=== PATIENT | male | born 1945 | race Caucasian/White ===

== ENCOUNTER 2016-08-07 14:01 | Inpatient (IN) | payer MEDICARE, OTHER ==
[~2016-08-07] VITALS: Ht 177.8 cm; Wt 65.8 kg
[~2016-08-07 14:01] MED LIST: AMLODIPINE BESY10 MG ORAL; ATORVASTATIN CA20 MG ORAL; CARVEDILOL25 MG ORAL; CATAPRES0.3 MG ORAL; FLOMAX0.4 MG ORAL; GLIMEPIRIDE4 MG ORAL; ISOSORBIDE MONO60 M1 PO; MIRTAZAPINE15 M3 ORAL; NAMENDA10 MG ORAL; PANTOPRAZOLE SO40 MG ORAL; PROSCAR5 MG ORAL
[2016-08-07] MEDS ORDERED: LANSOPRAZOLE30 MG ORAL (14:38)
[2016-08-07] MEDS ORDERED: TAMSULOSIN HCL0.4 MG ORAL (14:38)
[2016-08-07] MEDS ORDERED: NORVASC10 MG ORAL (14:38)
[2016-08-07] MEDS ORDERED: NAMENDA5 MG ORAL (14:38)
[2016-08-07] MEDS ORDERED: ATORVASTATIN CA40 MG ORAL (14:38)
--- NOTE | 2016-08-07 14:38 | Emergency Room Report ---
History of Present Illness General Chief Complaint: Upper Respiratory Illness Source: Patient, Medical Record, EMS Present Illness HPI Patient is a 70-year-old male who presented after increased congestion and difficulty breathing. Patient prior history of CVA as well as increased coughing congestion. He had gradual onset of symptoms. Patient was sent from group home. The patient's primary care physician is Dr. Davis. Allergies: Coded Allergies: No Known Allergies (Verified , 06/04/07) Patient History Past Medical History: see triage record Reviewed Nursing Documentation: PMH: Agreed, PSxH: Agreed Nursing Documentation-PMH Past Medical History: No History, Except For Hx Hypertension: Yes Hx COPD: Yes Hx Diabetes: Yes - CKD stage 3 Hx Cancer: No Hx Gastrointestinal Problems: No Hx Neurological Problems: Yes - SCHIZOPHRENIA Hx Cerebrovascular Accident: Yes Review of Systems All Other Systems: negative except mentioned in HPI Physical Exam Vital Signs Date Time Temp Pulse Resp B/P Pulse Ox O2 Delivery O2 Flow Rate FiO2 08/07/16 14:02 98.4 72 18 117/75 100 Room Air Sp02 EP Interpretation: reviewed, normal General Appearance: normal inspection, well appearing, no apparent distress, alert Head: atraumatic ENT: normal ENT inspection, hearing grossly normal, normal voice Neck: normal inspection, full range of motion, supple, no bony tend Respiratory: normal inspection, no respiratory distress, no retraction, no wheezing, decreased breath sounds Cardiovascular #1: regular rate, rhythm, no edema Gastrointestinal: normal inspection, normal bowel sounds, non tender, soft, no guarding, no hernia Genitourinary: no CVA tenderness Musculoskeletal: normal inspection, back normal, normal range of motion Neurologic: normal inspection, alert, oriented x3, responsive, orthopedic assistant III-XII nml as tested, motor weakness, other - tremor, bilateral upper extremity body fitter equal Psychiatric: normal inspection, mood/affect normal Skin: normal inspection, normal color, no rash Medical Decision Making Diagnostic Impression: Primary Impression: Pneumonia Additional Impressions: Pleural effusion, left UTI (urinary tract infection) ER Course Patient presented for shortness of breath. Differential included but was not limited to anemia, pneumonia, pneumothorax, myocardial infarction, pericardial effusion, congestive heart failure, acidosis. EKG interpreted by me showed normal sinus rhythm with a rate of [address] or T wave changes. The inferior T wave flattening was noted. Patient was given IV antibiotics for presumed was urinary infection. patient also was noted to have some evidence of pneumonia. Because of patient's abnormal chest x-ray as well as comorbidities Dr. Davis was contacted for inpatient management. Labs Test 08/07/16 14:35 08/07/16 15:00 08/07/16 15:50 White Blood Count 5.5 K/UL (4.8-10.8) Red Blood Count 4.44 M/UL (4.70-6.10) Hemoglobin 13.8 G/DL (14.2-18.0) Hematocrit 40.3 % (42.0-52.0) Mean Corpuscular Volume 91 FL (80-99) Mean Corpuscular Hemoglobin 31.0 PG (27.0-31.0) Mean Corpuscular Hemoglobin Concent 34.2 G/DL (32.0-36.0) Red Cell Distribution Width 11.4 % (11.6-14.8) Platelet Count 140 K/UL (150-450) Mean Platelet Volume 6.5 FL (6.5-10.1) Neutrophils (%) (Auto) 47.1 % (45.0-75.0) Lymphocytes (%) (Auto) 39.6 % (20.0-45.0) Monocytes (%) (Auto) 9.0 % (1.0-10.0) Eosinophils (%) (Auto) 3.8 % (0.0-3.0) Basophils (%) (Auto) 0.5 % (0.0-2.0) Sodium Level 146 mEQ/L (135-145) Potassium Level 4.6 mEQ/L (3.4-4.9) Chloride Level 106 mEQ/L (98-107) Carbon Dioxide Level 21 mEQ/L (20-30) Anion Gap 19 (5-15) Blood Urea Nitrogen 38 mg/dL (7-23) Creatinine 1.6 mg/dL (0.7-1.2) Estimat Glomerular Filtration Rate mL/min (>60) Glucose Level 149 mg/dL (74-106) Calcium Level 9.3 mg/dL (8.6-10.2) Total Bilirubin 0.3 mg/dL (0.0-1.2) Aspartate Amino Transf (AST/SGOT) 18 U/L (5-40) Alanine Aminotransferase (ALT/SGPT) 17 U/L (3-41) Alkaline Phosphatase 74 U/L (40-129) Total Creatine Kinase 132 U/L (38-174) Creatine Kinase MB 2.9 ng/mL (< 6.7) Creatine Kinase MB Relative Index 2.1 Troponin I < 0.30 ng/mL (<=0.30) Pro-B-Type Natriuretic Peptide 195 pg/mL (0-125) Total Protein 7.4 g/dL (6.6-8.7) Albumin 4.5 g/dL (3.5-5.2) Globulin 2.9 g/dL Albumin/Globulin Ratio 1.5 (1.0-2.7) Lactic Acid Level 1.60 mmol/L (0.66-2.22) Last Vital Signs Date Time Temp Pulse Resp B/P Pulse Ox O2 Delivery O2 Flow Rate FiO2 08/07/16 14:02 98.4 72 18 117/75 100 Room Air Status: unchanged Disposition: ADMITTED INPATIENT Condition: Serious Farhad Mandujano August 07, 2016 14:38
[2016-08-07 14:40] VITALS: BP 117/75
[2016-08-07] MEDS ORDERED: NORMODYNE300 MG ORAL (14:40)
[2016-08-07] MEDS ORDERED: LEVOTHYROXINE25 MCG ORAL (14:40)
[2016-08-07] MEDS ORDERED: ECOTRIN325 MG ORAL (14:40)
[2016-08-07] MEDS ORDERED: DuoNeb 0.5-3(2.5)mg/3ml neb HHN ONE (14:45)
[2016-08-07 15:38] LABS: BASOPHILS % (AUTO) 0.5 % (0.0-2.0); EOSINOPHILS % (AUTO) 3.8 % (0.0-3.0); LYMPHOCYTES % (AUTO) 39.6 % (20.0-45.0); MEAN CORPUSCULAR HGB CONC 34.2 G/DL (32.0-36.0); MEAN CORPUSCULAR VOLUME 91 FL (80-99); MEAN PLATELET VOLUME 6.5 FL (6.5-10.1); NEUTROPHILS % (AUTO) 47.1 % (45.0-75.0); PLATELET COUNT 140 K/UL (150-450); RED BLOOD COUNT 4.44 M/UL (4.70-6.10); RED CELL DISTRIBUTION WIDTH 11.4 % (11.6-14.8); WHITE BLOOD COUNT 5.5 K/UL (4.8-10.8)
[2016-08-07 15:47] LABS: ALANINE AMINOTRANSFERASE 17 U/L (3-41); ALBUMIN/GLOBULIN RATIO 1.5 (1.0-2.7); ANION GAP 19 (5-15); ASPARTATE AMINO TRANSFERASE 18 U/L (5-40); CALCIUM 9.3 mg/dL (8.6-10.2); CARBON DIOXIDE 21 mEQ/L (20-30); CHLORIDE 106 mEQ/L (98-107); CREATININE 1.6 mg/dL (0.7-1.2); HEMOLYSIS 7; POTASSIUM 4.6 mEQ/L (3.4-4.9); SODIUM 146 mEQ/L (135-145); TOTAL PROTEIN 7.4 g/dL (6.6-8.7)
[2016-08-07 15:50] LABS: TROPONIN I < 0.30 ng/mL (<=0.30)
--- NOTE | 2016-08-07 15:54 | Diagnostic Imaging Report ---
Indication: SOB Technique: One view of the chest Comparison: 09/18/2012 Findings: There is persistent left basilar opacity, appearing similar to the prior exam and possibly the basis of scarring, although infiltrate or pleural fluid also a possibility. Right lung and pleural space, left upper lung remain clear. The heart remains enlarged. Impression: Left basilar pleural and/or parenchymal disease, acuity indeterminate. Cardiomegaly
[2016-08-07 15:58] LABS: CKMB 2.9 ng/mL (< 6.7)
[2016-08-07 16:00] VITALS: BP 119/73
[2016-08-07] MEDS ORDERED: cefTRIAXone 1 GM in NS 55 ML IVPB ONE (16:15)
--- NOTE | 2016-08-07 16:16 | Diagnostic Imaging Report ---
Indication: Abdominal pain Technique: Supine view of the abdomen Comparison: none Findings: Rafael Hernandez is unremarkable. No unusual masses or cavitations. There may be pleural and/or parenchymal disease at the left lung base. This is also described on earlier chest radiograph Impression: No acute abdominal or pelvic process Possible left basilar pleural and/or lung disease
[2016-08-07 16:38] LABS: APPEARANCE,URINE SLIGHTLY CLOUDY; KETONES,URINE NEGATIVE (NEGATIVE); LEUKOCYTE ESTERASE ,URINE 3+ (NEGATIVE); NITRITE,URINE POSITIVE (NEGATIVE); PH,URINE 8 (4.5-8.0); PROTEIN,URINE 3+ (NEGATIVE); UROBILINOGEN,URINE NORMAL MG/DL (0.0-1.0)
[2016-08-07 16:56] LABS: AMORPHOUS SEDIMENT,UR MODERATE /LPF; BACTERIA,URINE MANY /HPF
[2016-08-07] MEDS ORDERED: NS 55 ML IV ONE (16:56)
[2016-08-07] MEDS ORDERED: Tubing IV Cassette IV ONE ×2 (16:56→17:57)
[2016-08-07] MEDS ORDERED: Azithromycin 500 MG in D5W 275 ML IVPB ONE (17:30)
[2016-08-07] MEDS ORDERED: D5W 275 ML ONE (17:57)
[2016-08-07] MEDS ORDERED: Azithromycin Inj IV ONE (17:57)
[2016-08-07 18:00] VITALS: BP 121/73
[2016-08-07] MEDS ORDERED: Promethazine/Codeine 5ml UD ORAL ONE (18:30)
[2016-08-07 19:10] VITALS: BP 126/79
[2016-08-07 19:30] VITALS: BP 125/72
[2016-08-07] MEDS ORDERED: Milk of Magnesia 30ml Ud ORAL PRN (21:30)
[2016-08-07] MEDS ORDERED: DuoNeb 0.5-3(2.5)mg/3ml neb HHN PRN (21:30)
[2016-08-07 22:00] VITALS: BP 141/80
[2016-08-07] MEDS ORDERED: Tamsulosin 0.4mg cap ONE (22:37)
[2016-08-07] MEDS ORDERED: Imdur 30mg tab ORAL ONE (22:45)
[2016-08-08 00:47] VITALS: BP 142/85
[2016-08-08 04:00] VITALS: BP 144/72
[2016-08-08] MEDS: 1/2NS w/KCl 20mEq 1000ml 1,000 ML IV SCH ×2 (06:06→18:15)
[2016-08-08] MEDS: Levothyroxine 25mcg tab ORAL SCH (07:27)
[2016-08-08 08:05] VITALS: BP 156/88
[2016-08-08] MEDS: Heparin 5000 units/ml inj SUBQ SCH ×2 (09:01→21:00)
[2016-08-08] MEDS: Memantine 5 MG TAB ORAL SCH (09:02)
[2016-08-08] MEDS: Aspirin EC 81mg tab ORAL SCH (09:02)
[2016-08-08] MEDS: Docusate 100mg cap ORAL SCH ×2 (09:02→21:00)
[2016-08-08] MEDS: Carvedilol 25mg Tab ORAL SCH ×2 (09:02→17:03)
[2016-08-08 11:56] VITALS: BP 139/97
[2016-08-08 15:40] VITALS: BP 144/74
[2016-08-08] MEDS: cefTRIAXone 1gm/D5W 55ml IVPB SCH ×2 (17:02)
[2016-08-08 20:00] VITALS: BP 142/75
--- NOTE | 2016-08-08 22:08 | History and Physical Report ---
DATE OF ADMISSION: 08/07/2016 CHIEF COMPLAINT: Shortness of breath and altered level of consciousness. HISTORY OF PRESENT ILLNESS: This is a 70-year-old male, who lives in the [facility]. I was called yesterday about the patient having shortness of breath and altered level of consciousness. The patient was transferred to the unit. He was admitted to the telemetry. PAST MEDICAL HISTORY: 1. Organic brain syndrome. 2. Chronic kidney disease stage III. 3. Hypertensive cardiovascular disease. 4. Benign prostatic hypertrophy. 5. Type 2 diabetes mellitus. 6. Schizophrenia. 7. Blindness. 8. Hypothyroidism. MEDICATIONS: Atorvastatin, Flomax, Imdur, Protonix, Namenda, Norvasc, Proscar, glimepiride, baby aspirin, Synthroid, and labetalol. ALLERGIES: No known drug allergies. SOCIAL HISTORY: Unable to obtain secondary to his mental status. FAMILY HISTORY: Unable to obtain secondary to his mental status. REVIEW OF SYSTEMS: Unable to obtain secondary to his mental status. PHYSICAL EXAMINATION: GENERAL: This is an elderly male, who is in no acute distress. VITAL SIGNS: Blood pressure 142/85, pulse 61 and regular, respirations 20, and temperature 97.6 degrees. HEENT: The head is normocephalic and atraumatic. Pupils are sluggish to respond to light. NECK: Supple. Trachea midline. There is no lymphadenopathy or thyromegaly. LUNGS: Diffuse bilateral rhonchi and wheezes. HEART: Regular rate and rhythm without rubs, murmurs, or gallops. ABDOMEN: Soft. Bowel sounds were active. EXTREMITIES: He has contractures. No clubbing, cyanosis, or edema. NEUROLOGICAL: He is confused. There were no gross focal findings. LABORATORY AND ANCILLARY DATA: From yesterday CBC within normal limits. Serum chemistry, sodium 146, BUN 38, creatinine 1.6. Urinalysis, 3+ protein, positive nitrite, 10 to 15 RBCs, and 5 to 10 white blood cells. Imaging studies, chest x-ray, left pleural and parenchymal disease. ASSESSMENT: 1. Left lower lobe pneumonia with pleural effusion. 2. Urinary tract infection. 3. problems. PLAN: 1. IV antibiotics. 2. Continue [facility] medications. Treasure Soriano M.D. DR: Wendie JOB#: [id number] CC:
[2016-08-08] MEDS: Atorvastatin 20mg tab ORAL SCH (23:00)
[2016-08-08] MEDS: Tamsulosin 0.4mg cap ORAL SCH (23:00)
[2016-08-09] VITALS (7 sets, daily range): BP systolic 144–178; BP diastolic 71–90
--- NOTE | 2016-08-09 01:38 | Consultation ---
DATE OF CONSULTATION: 08/08/2016 PULMONARY CONSULTATION REFERRING PHYSICIAN: Treasure Soriano M.D. REASON FOR CONSULTATION: Respiratory insufficiency HISTORY OF PRESENT ILLNESS: This is a 70-year-old patient who presented to the emergency room. The patient is a intermediate patient. The patient presents with increasing congestion and difficulty breathing. The patient does have history of prior CVA, unclear if the patient may have aspirated. The patient has been admitted for further care and management and further evaluation and treat accordingly. The patient's saturation on room air is adequate. PAST MEDICAL HISTORY: Notable for COPD, hypertension, chronic kidney disease, schizophrenia, dementia, and CVA. MEDICATIONS: Reviewed. ALLERGIES: Reviewed. SOCIAL HISTORY: Noted and reviewed. The patient is a intermediate patient. Non-smoker and non-drinker. REVIEW OF SYSTEMS: Somewhat difficult to obtain due to the patient's current state. PHYSICAL EXAMINATION: GENERAL: A well developed male with advanced age. VITAL SIGNS: Blood pressure 144/74, heart rate 65, respiratory rate 20, saturation 97%, and temperature 97.5 degrees. HEENT: Negative. Extraocular movements are intact. Oropharynx is slightly reduced gag. NECK: Otherwise supple with no jugular venous distention. LUNGS: With rhonchi diffusely. CARDIAC: S1, S2. Regular rate and rhythm without murmur, rubs, or gallops. ABDOMEN: Soft and nontender. EXTREMITIES: No cyanosis, clubbing, or edema. NEUROLOGIC: With some tremor noted diffusely. The patient is slightly altered. LABORATORY AND DIAGNOSTIC DATA: Laboratory data reviewed. White cell count 5.5, hematocrit 40, and platelets 140,000. Chemistry, sodium 146, BUN 38, and creatinine 1.6. BNP is 195. Chest x-ray as mentioned. IMPRESSION: 1. Possible pneumonia, evidence of respiratory congestion. 2. Shortness of breath. 3. Possible aspiration versus intermediate related pneumonia. 4. Probable dehydration with acute renal failure. 5. Hypercholesterolemia. 6. History of CVA. RECOMMENDATION: Agree with management as outlined. IV antibiotics. Followup x-ray. Follow up with clinical evaluation. respiratory care as needed with nebulized therapy. DVT prophylaxis. We will monitor. Continue intermediate medications. We will monitor neurological status and avoid excessive sedation. Follow up x-ray for improvement and if not we will proceed with CT of the chest for further evaluation. Efren Alonso M.D. DR: YONY JOB#: [id number] CC: LUCY
[2016-08-09] MEDS: Levothyroxine 25mcg tab ORAL SCH (06:30)
--- NOTE | 2016-08-09 08:37 | Pulmonology Progress Note ---
Assessment/Plan Assessment/Plan IMPRESSION: 1. Possible pneumonia, evidence of respiratory congestion. 2. Shortness of breath. 3. Possible aspiration versus custodial related pneumonia. 4. Probable dehydration with acute renal failure. 5. Hypercholesterolemia. 6. History of CVA. PLAN antibiotics respiratory care oxygen therapy aspiration precautions follow up chest xr maintain meds ongoing acute care follow up impression, plan, and exam edited and reviewed in detail care discussed with RN Subjective ROS Limited/Unobtainable: Yes Allergies: Coded Allergies: No Known Allergies (Verified , 06/04/07) Subjective somewhat confused minimally congested Objective Last 24 Hour Vital Signs Date Time Temp Pulse Resp B/P Pulse Ox O2 Delivery O2 Flow Rate FiO2 08/09/16 08:19 97.9 68 20 178/82 Nasal Cannula 2.0 08/09/16 04:15 56 08/09/16 04:00 97.9 66 20 155/71 98 Nasal Cannula 2.0 08/09/16 00:00 97.4 57 19 166/90 97 Nasal Cannula 2.0 08/08/16 21:00 57 166/90 08/08/16 20:00 97.7 58 21 142/75 97 Nasal Cannula 2.0 08/08/16 20:00 58 08/08/16 19:30 Nasal Cannula 2.0 28 08/08/16 19:30 96 Nasal Cannula 2.0 28 08/08/16 17:10 97.5 08/08/16 17:03 65 144/74 08/08/16 17:00 96 Nasal Cannula 2.0 28 08/08/16 17:00 Nasal Cannula 2.0 28 08/08/16 16:00 61 08/08/16 15:40 97.5 65 20 144/74 97 Nasal Cannula 2.0 08/08/16 12:00 56 08/08/16 11:56 97.5 62 20 139/97 98 Simple Mask 2.0 08/08/16 09:06 62 156/88 08/08/16 09:02 62 156/88 08/08/16 09:02 62 156/88 Intake and Output 08/08/16 08/09/16 19:00 07:00 Intake Total 620 ml Output Total 1100 ml 700 ml Balance -480 ml -700 ml Intake Oral 120 ml IV Total 500 ml Output Urine Total 1100 ml 700 ml Objective GENERAL: A well developed male with advanced age. HEENT: Negative. Extraocular movements are intact. Oropharynx is slightly reduced gag. NECK: Otherwise supple with no jugular venous distention. LUNGS: With rhonchi diffusely. moderate air entry; slightly better CARDIAC: S1, S2. Regular rate and rhythm without murmur, rubs, or gallops. ABDOMEN: Soft and nontender. no HSM EXTREMITIES: No cyanosis, clubbing, or edema. NEUROLOGIC: With some tremor noted with weakness diffusely. The patient is slightly altered. Microbiology Date/Time Source Procedure Growth Status 08/07/16 14:45 Blood Blood Culture - Preliminary NO GROWTH AFTER 24 HOURS Resulted 08/07/16 14:35 Blood Blood Culture - Preliminary NO GROWTH AFTER 24 HOURS Resulted 08/07/16 16:00 Nasal Nares MRSA Culture - Final NO METHICILLIN RESISTANT STAPH AUREUS... Complete 08/07/16 14:43 Nasal Nares Influenza Types A,B Antigen (JIGNESH) - Final Complete 08/07/16 15:50 Urine,Clean Catch Urine Culture - Preliminary Gram Negative Bacillus 1 Resulted 08/07/16 16:00 Rectum VRE Culture - Final NO VANCOMYCIN RESISTANT ENTEROCOCCUS ... Complete Current Medications Medications (Trade) Dose Ordered Sig/Angelica Route PRN Reason Start Time Stop Time Status Last Admin Dose Admin Acetaminophen (Tylenol) 650 mg Q4H PRN ORAL Mild Pain (Pain Scale 1-3) 08/07/16 21:30 09/06/16 21:29 08/08/16 16:08 Albuterol/ Ipratropium (DuoNeb 0.5-3(2.5)mg/3ml) 3 ml Q4H PRN HHN Shortness of Breath 08/07/16 21:30 08/12/16 21:29 Amlodipine Besylate (Norvasc) 10 mg DAILY ORAL 08/08/16 09:00 09/07/16 08:59 08/08/16 09:02 Aspirin (Ecotrin) 81 mg DAILY ORAL 08/08/16 09:00 09/07/16 08:59 08/08/16 09:02 Atorvastatin Calcium (Lipitor) 20 mg BEDTIME ORAL 08/08/16 23:00 09/07/16 22:59 08/08/16 23:00 Carvedilol (Coreg) 25 mg BID ORAL 08/08/16 09:00 09/07/16 08:59 08/08/16 17:03 Ceftriaxone Sodium/Dextrose (Rocephin/D5W) 55 ml @ 110 mls/hr Q24H IVPB 08/08/16 17:00 08/15/16 16:59 08/08/16 17:02 Dextrose (Dextrose 50%) STAT PRN IV Hypoglycemia 08/07/16 21:30 09/06/16 21:29 Docusate Sodium (Colace) 100 mg EVERY 12 HOURS ORAL 08/08/16 09:00 09/07/16 08:59 08/08/16 21:00 Finasteride (Proscar) 5 mg DAILY ORAL 08/08/16 09:00 09/07/16 08:59 08/08/16 09:02 Heparin Sodium (Porcine) (Heparin 5000 units/ml) 5,000 units EVERY 12 HOURS SUBQ 08/08/16 09:00 09/07/16 08:59 08/08/16 21:00 Labetalol HCl (Normodyne) 500 mg EVERY 12 HOURS ORAL 08/08/16 09:00 09/07/16 08:59 08/08/16 21:00 Levothyroxine Sodium (Synthroid) 25 mcg ACBREAKFAST ORAL 08/08/16 06:30 09/07/16 06:29 08/09/16 06:30 Magnesium Hydroxide (Mom) 30 ml HSPRN PRN ORAL Constipation 08/07/16 21:30 09/06/16 21:29 Memantine (Namenda) 5 mg DAILY ORAL 08/08/16 09:00 09/07/16 08:59 08/08/16 09:02 Mirtazapine (Remeron) 15 mg BEDTIME ORAL 08/08/16 23:00 09/07/16 22:59 08/08/16 23:00 Ondansetron HCl (Zofran) 4 mg Q6H PRN IVP Nausea & Vomiting 08/07/16 21:30 09/06/16 21:29 Sodium (0.45%NS w/KCl 20mEq 1000ml) 1,000 ml @ 50 mls/hr Q20H IV 08/07/16 22:15 09/06/16 22:14 08/08/16 06:06 Tamsulosin HCl 0.4 mg 0.4 mg BEDTIME ORAL 08/08/16 23:00 09/07/16 22:59 08/08/16 23:00 DARRYL FERRREA August 09, 2016 08:37
[2016-08-09] MEDS: Docusate 100mg cap ORAL SCH ×2 (08:49→21:56)
[2016-08-09] MEDS: Aspirin EC 81mg tab ORAL SCH (08:49)
[2016-08-09] MEDS: Memantine 5 MG TAB ORAL SCH (08:49)
[2016-08-09] MEDS: Carvedilol 25mg Tab ORAL SCH ×2 (08:50→17:09)
[2016-08-09] MEDS: Heparin 5000 units/ml inj SUBQ SCH ×2 (08:50→21:58)
[2016-08-09] MEDS: 1/2NS w/KCl 20mEq 1000ml 1,000 ML IV SCH (15:00)
--- NOTE | 2016-08-09 15:59 | General Progress Note ---
Assessment/Plan Assessment/Plan COPD Exacerbation improving UTI - Urine C+ GNR on IV Abx Subjective Allergies: Coded Allergies: No Known Allergies (Verified , 06/04/07) Subjective c/o Abd Pain Objective Last 24 Hour Vital Signs Date Time Temp Pulse Resp B/P Pulse Ox O2 Delivery O2 Flow Rate FiO2 08/09/16 15:34 98.1 56 20 145/74 95 Nasal Cannula 2.0 08/09/16 12:22 97.6 70 20 150/78 98 Nasal Cannula 2.0 08/09/16 11:22 56 08/09/16 08:50 57 144/86 08/09/16 08:50 57 144/86 08/09/16 08:49 57 144/86 08/09/16 08:47 57 144/86 08/09/16 08:19 97.9 68 20 178/82 Nasal Cannula 2.0 08/09/16 07:17 53 08/09/16 04:15 56 08/09/16 04:00 97.9 66 20 155/71 98 Nasal Cannula 2.0 08/09/16 00:00 97.4 57 19 166/90 97 Nasal Cannula 2.0 08/08/16 21:00 57 166/90 08/08/16 20:00 97.7 58 21 142/75 97 Nasal Cannula 2.0 08/08/16 20:00 58 08/08/16 19:30 Nasal Cannula 2.0 28 08/08/16 19:30 96 Nasal Cannula 2.0 28 08/08/16 17:10 97.5 08/08/16 17:03 65 144/74 08/08/16 17:00 96 Nasal Cannula 2.0 28 08/08/16 17:00 Nasal Cannula 2.0 28 08/08/16 16:00 61 Intake and Output 08/08/16 08/09/16 19:00 07:00 Intake Total 620 ml 50 ml Output Total 1100 ml 700 ml Balance -480 ml -650 ml Intake Oral 120 ml IV Total 500 ml 50 ml Output Urine Total 1100 ml 700 ml Height (Feet): 5 Height (Inches): 10.00 Weight (Pounds): 145 Objective CV RR Lungs CTA Abd SNT. BS + E No CCE LACI OLMOS August 09, 2016 15:59
[2016-08-09] MEDS: cefTRIAXone 1gm/D5W 55ml IVPB SCH ×2 (17:09)
[2016-08-09] MEDS: Tamsulosin 0.4mg cap ORAL SCH (21:56)
[2016-08-09] MEDS: Atorvastatin 20mg tab ORAL SCH (21:56)
[2016-08-10] VITALS: BP 155/72
[2016-08-10 04:00] VITALS: BP 154/87
[2016-08-10] MEDS: Levothyroxine 25mcg tab ORAL SCH (06:30)
[2016-08-10 08:00] VITALS: BP 147/66
--- NOTE | 2016-08-10 08:08 | Pulmonology Progress Note ---
Assessment/Plan Assessment/Plan IMPRESSION: 1. Possible pneumonia, evidence of respiratory congestion. 2. Shortness of breath. 3. Possible aspiration versus long term related pneumonia. 4. Probable dehydration with acute renal failure. 5. Hypercholesterolemia. 6. History of CVA. 7. pulmonary congestion PLAN antibiotics IV respiratory care oxygen therapy aspiration precautions follow up chest xr and abg and bnp dc iv fluids for now maintain meds ongoing acute care follow up monitor closely for change impression, plan, and exam edited and reviewed in detail care discussed with RN Subjective ROS Limited/Unobtainable: Yes Allergies: Coded Allergies: No Known Allergies (Verified , 06/04/07) Subjective somewhat confused minimally congested Objective Last 24 Hour Vital Signs Date Time Temp Pulse Resp B/P Pulse Ox O2 Delivery O2 Flow Rate FiO2 08/10/16 04:00 97.6 68 20 154/87 93 Room Air 08/10/16 04:00 63 08/10/16 00:49 59 08/10/16 00:00 97.7 60 21 155/72 95 Nasal Cannula 2.0 08/09/16 21:57 55 162/89 08/09/16 20:00 97.9 55 22 162/89 96 Nasal Cannula 2.0 08/09/16 20:00 61 08/09/16 19:53 60 18 Nasal Cannula 2.0 28 08/09/16 19:53 Nasal Cannula 2.0 28 08/09/16 19:53 98 Nasal Cannula 2.0 28 08/09/16 17:26 98.1 08/09/16 17:09 56 145/74 08/09/16 16:24 56 08/09/16 15:34 98.1 56 20 145/74 95 Nasal Cannula 2.0 08/09/16 12:22 97.6 70 20 150/78 98 Nasal Cannula 2.0 08/09/16 11:22 56 08/09/16 08:50 57 144/86 08/09/16 08:50 57 144/86 08/09/16 08:49 57 144/86 08/09/16 08:47 57 144/86 08/09/16 08:19 97.9 68 20 178/82 Nasal Cannula 2.0 Intake and Output 08/09/16 08/10/16 19:00 07:00 Intake Total 965 ml 600 ml Output Total 1300 ml 500 ml Balance -335 ml 100 ml Intake Oral 360 ml IV Total 605 ml 600 ml Output Urine Total 1300 ml 500 ml Objective GENERAL: A well developed male with advanced age. HEENT: Negative. Extraocular movements are intact. Oropharynx is slightly reduced gag. NECK: Otherwise supple with no jugular venous distention. LUNGS: rhonchi diffusely. moderate air entry; reduced CARDIAC: S1, S2. Regular rate and rhythm without murmur, rubs, or gallops. ABDOMEN: Soft and nontender. no HSM EXTREMITIES: No cyanosis, clubbing, or edema. NEUROLOGIC: With some tremor noted with weakness diffusely. The patient is slightly altered. Microbiology Date/Time Source Procedure Growth Status 08/07/16 14:45 Blood Blood Culture - Preliminary NO GROWTH AFTER 48 HOURS Resulted 08/07/16 14:35 Blood Blood Culture - Preliminary NO GROWTH AFTER 48 HOURS Resulted 08/07/16 16:00 Nasal Nares MRSA Culture - Final NO METHICILLIN RESISTANT STAPH AUREUS... Complete 08/07/16 14:43 Nasal Nares Influenza Types A,B Antigen (JIGNESH) - Final Complete 08/07/16 15:50 Urine,Clean Catch Urine Culture - Final Proteus Mirabilis Complete 08/07/16 16:00 Rectum VRE Culture - Final NO VANCOMYCIN RESISTANT ENTEROCOCCUS ... Complete Current Medications Medications (Trade) Dose Ordered Sig/Angelica Route PRN Reason Start Time Stop Time Status Last Admin Dose Admin Acetaminophen (Tylenol) 650 mg Q4H PRN ORAL Mild Pain (Pain Scale 1-3) 08/07/16 21:30 09/06/16 21:29 08/09/16 16:27 Albuterol/ Ipratropium (DuoNeb 0.5-3(2.5)mg/3ml) 3 ml Q4H PRN HHN Shortness of Breath 08/07/16 21:30 08/12/16 21:29 Amlodipine Besylate (Norvasc) 10 mg DAILY ORAL 08/08/16 09:00 09/07/16 08:59 08/09/16 08:49 Aspirin (Ecotrin) 81 mg DAILY ORAL 08/08/16 09:00 09/07/16 08:59 08/09/16 08:49 Atorvastatin Calcium (Lipitor) 20 mg BEDTIME ORAL 08/08/16 23:00 09/07/16 22:59 08/09/16 21:56 Carvedilol (Coreg) 25 mg BID ORAL 08/08/16 09:00 09/07/16 08:59 08/08/16 17:03 Ceftriaxone Sodium/Dextrose (Rocephin/D5W) 55 ml @ 110 mls/hr Q24H IVPB 08/08/16 17:00 08/15/16 16:59 08/09/16 17:09 Dextrose (Dextrose 50%) STAT PRN IV Hypoglycemia 08/07/16 21:30 09/06/16 21:29 Docusate Sodium (Colace) 100 mg EVERY 12 HOURS ORAL 08/08/16 09:00 09/07/16 08:59 08/09/16 21:56 Finasteride (Proscar) 5 mg DAILY ORAL 08/08/16 09:00 09/07/16 08:59 08/09/16 08:49 Heparin Sodium (Porcine) (Heparin 5000 units/ml) 5,000 units EVERY 12 HOURS SUBQ 08/08/16 09:00 09/07/16 08:59 08/09/16 21:58 Labetalol HCl (Normodyne) 500 mg EVERY 12 HOURS ORAL 08/08/16 09:00 09/07/16 08:59 08/09/16 21:57 Levothyroxine Sodium (Synthroid) 25 mcg ACBREAKFAST ORAL 08/08/16 06:30 09/07/16 06:29 08/10/16 06:30 Magnesium Hydroxide (Mom) 30 ml HSPRN PRN ORAL Constipation 08/07/16 21:30 09/06/16 21:29 Memantine (Namenda) 5 mg DAILY ORAL 08/08/16 09:00 09/07/16 08:59 08/09/16 08:49 Mirtazapine (Remeron) 15 mg BEDTIME ORAL 08/08/16 23:00 09/07/16 22:59 08/09/16 21:56 Ondansetron HCl (Zofran) 4 mg Q6H PRN IVP Nausea & Vomiting 08/07/16 21:30 09/06/16 21:29 Pantoprazole (Protonix) 40 mg DAILY ORAL 08/10/16 09:00 09/09/16 08:59 Sodium (0.45%NS w/KCl 20mEq 1000ml) 1,000 ml @ 50 mls/hr Q20H IV 08/07/16 22:15 09/06/16 22:14 08/09/16 15:00 Tamsulosin HCl 0.4 mg 0.4 mg BEDTIME ORAL 08/08/16 23:00 09/07/16 22:59 08/09/16 21:56 DARRYL FERRERA August 10, 2016 08:08
[2016-08-10] MEDS: Docusate 100mg cap ORAL SCH ×2 (08:26→21:40)
[2016-08-10] MEDS: Memantine 5 MG TAB ORAL SCH (08:28)
[2016-08-10] MEDS: Aspirin EC 81mg tab ORAL SCH (08:28)
[2016-08-10] MEDS: Carvedilol 25mg Tab ORAL SCH ×2 (08:28→17:14)
[2016-08-10] MEDS: Heparin 5000 units/ml inj SUBQ SCH ×2 (08:29→21:41)
[2016-08-10 08:31] LABS: ABG ALLEN TEST POSITIVE; ABG BASE EXCESS -1.6
[2016-08-10 12:00] VITALS: BP 142/88
--- NOTE | 2016-08-10 12:38 | Diagnostic Imaging Report ---
Indications: Shortness of breath Technique: Portable AP chest Findings: Comparison: 08/07/2016 Left pleural effusion persists, decreased. Portions of left lung base obscured. Left lung decreased volume. Right lung and pleura remain clear. Cardiac silhouette remains enlarged. Pulmonary vasculature remains within normal limits. IMPRESSION: Apparent increase in left pleural effusion Interval decrease in left lung volume suggesting underlying atelectasis. Other basal parenchymal pathology not excludable.
--- NOTE | 2016-08-10 14:57 | General Progress Note ---
Assessment/Plan Assessment/Plan COPD Exacerbation improving UTI - Proteus on IV Abx. Check Abd US Subjective Allergies: Coded Allergies: No Known Allergies (Verified , 06/04/07) Subjective c/o Abd Pain Objective Last 24 Hour Vital Signs Date Time Temp Pulse Resp B/P Pulse Ox O2 Delivery O2 Flow Rate FiO2 08/10/16 12:52 58 08/10/16 12:00 97.9 56 19 142/88 96 Nasal Cannula 2.0 08/10/16 08:28 60 117/57 08/10/16 08:27 60 117/57 08/10/16 08:00 99.1 89 20 147/66 95 Nasal Cannula 2.0 08/10/16 07:59 Nasal Cannula 2.0 08/10/16 07:58 95 Nasal Cannula 2.0 08/10/16 07:57 66 16 Nasal Cannula 2.0 08/10/16 07:33 60 08/10/16 04:00 97.6 68 20 154/87 93 Room Air 08/10/16 04:00 63 08/10/16 00:49 59 08/10/16 00:00 97.7 60 21 155/72 95 Nasal Cannula 2.0 08/09/16 21:57 55 162/89 08/09/16 20:00 97.9 55 22 162/89 96 Nasal Cannula 2.0 08/09/16 20:00 61 08/09/16 19:53 60 18 Nasal Cannula 2.0 28 08/09/16 19:53 Nasal Cannula 2.0 28 08/09/16 19:53 98 Nasal Cannula 2.0 28 08/09/16 17:26 98.1 08/09/16 17:09 56 145/74 08/09/16 16:24 56 08/09/16 15:34 98.1 56 20 145/74 95 Nasal Cannula 2.0 Intake and Output 08/09/16 08/10/16 19:00 07:00 Intake Total 965 ml 600 ml Output Total 1300 ml 500 ml Balance -335 ml 100 ml Intake Oral 360 ml IV Total 605 ml 600 ml Output Urine Total 1300 ml 500 ml Laboratory Tests 08/10/16 08:20: Arterial Blood pH 7.410, Arterial Blood Partial Pressure CO2 36.0, Arterial Blood Partial Pressure O2 73.2L, Arterial Blood HCO3 22.4, Arterial Blood Oxygen Saturation 94.0, Arterial Blood Base Excess -1.6, Carlitos Test Positive 08/10/16 08:45: Pro-B-Type Natriuretic Peptide 255H Height (Feet): 5 Height (Inches): 10.00 Weight (Pounds): 145 Objective CV RR Lungs CTA Abd SNT. BS + E No CCE LACI OLMOS August 10, 2016 14:57
[2016-08-10] MEDS: Norco 5mg/325mg tab ORAL PRN (15:24)
[2016-08-10 16:00] VITALS: BP 137/79
[2016-08-10] MEDS: cefTRIAXone 1gm/D5W 55ml IVPB SCH ×2 (16:05)
[2016-08-10] MEDS ORDERED: Tubing IV Secondary IV ONE (18:10)
[2016-08-10 20:10] VITALS: BP 123/76
[2016-08-10] MEDS: Atorvastatin 20mg tab ORAL SCH (21:39)
[2016-08-10] MEDS: Tamsulosin 0.4mg cap ORAL SCH (21:40)
[2016-08-11] VITALS: BP 150/76
[2016-08-11] MEDS: Norco 5mg/325mg tab ORAL PRN ×3 (00:01→21:16)
[2016-08-11 04:05] VITALS: BP 146/86
[2016-08-11] MEDS: Levothyroxine 25mcg tab ORAL SCH (06:40)
[2016-08-11 08:07] LABS: BASOPHILS % (AUTO) 0.8 % (0.0-2.0); EOSINOPHILS % (AUTO) 3.6 % (0.0-3.0); LYMPHOCYTES % (AUTO) 44.7 % (20.0-45.0); MEAN CORPUSCULAR HEMOGLOBIN 31.5 PG (27.0-31.0); MEAN CORPUSCULAR HGB CONC 34.9 G/DL (32.0-36.0); MEAN CORPUSCULAR VOLUME 90 FL (80-99); MEAN PLATELET VOLUME 6.7 FL (6.5-10.1); MONOCYTES % (AUTO) 9.9 % (1.0-10.0); PLATELET COUNT 126 K/UL (150-450); RED BLOOD COUNT 4.23 M/UL (4.70-6.10); RED CELL DISTRIBUTION WIDTH 11.4 % (11.6-14.8); WHITE BLOOD COUNT 5.7 K/UL (4.8-10.8)
[2016-08-11 08:20] LABS: ANION GAP 16 (5-15); CALCIUM 9.1 mg/dL (8.6-10.2); CARBON DIOXIDE 23 mEQ/L (20-30); CHLORIDE 106 mEQ/L (98-107); CREATININE 1.6 mg/dL (0.7-1.2); HEMOLYSIS 3; MAGNESIUM 2.1 mg/dL (1.7-2.5); POTASSIUM 4.3 mEQ/L (3.4-4.9); SODIUM 145 mEQ/L (135-145)
--- NOTE | 2016-08-11 08:31 | Pulmonology Progress Note ---
Assessment/Plan Assessment/Plan IMPRESSION: 1. Pneumonia, with evidence of respiratory congestion. left base 2. Shortness of breath. 3. Possible aspiration versus [facility] related pneumonia. 4. Probable dehydration with acute renal failure. 5. Hypercholesterolemia. 6. History of CVA. 7. pulmonary congestion 8. possible pleural effusion left PLAN antibiotics IV respiratory care CPT oxygen therapy aspiration precautions follow up chest xr and abg and bnp off IV fluids BNP not consistent with fluid overload ABG reviewed; adequate exchange maintain meds ongoing acute care follow up monitor closely for change hope to see improvement impression, plan, and exam edited and reviewed in detail care discussed with RN Subjective ROS Limited/Unobtainable: Yes Allergies: Coded Allergies: No Known Allergies (Verified , 06/04/07) Subjective somewhat confused still congested on oxygen Objective Last 24 Hour Vital Signs Date Time Temp Pulse Resp B/P Pulse Ox O2 Delivery O2 Flow Rate FiO2 08/11/16 04:05 98.0 57 20 146/86 96 Room Air 08/11/16 04:00 57 08/11/16 00:00 61 08/11/16 00:00 97.7 54 20 150/76 95 Room Air 08/10/16 21:42 69 123/76 08/10/16 20:34 69 16 Nasal Cannula 2.0 08/10/16 20:10 97.3 63 20 123/76 96 Nasal Cannula 2.0 08/10/16 20:00 63 08/10/16 19:00 Nasal Cannula 2.0 08/10/16 19:00 96 Nasal Cannula 2.0 08/10/16 17:14 57 137/79 08/10/16 16:23 97.9 08/10/16 16:00 97.5 57 16 137/79 94 Room Air 08/10/16 15:03 60 08/10/16 12:52 58 08/10/16 12:00 97.9 56 19 142/88 96 Nasal Cannula 2.0 Intake and Output 08/10/16 08/11/16 19:00 07:00 Intake Total 505 ml Output Total 450 ml 500 ml Balance 55 ml -500 ml Intake Oral 400 ml IV Total 105 ml Output Urine Total 450 ml 500 ml Objective GENERAL: A well developed male with advanced age. HEENT: Negative. Extraocular movements are intact. Oropharynx is slightly reduced gag. NECK: Otherwise supple with no jugular venous distention. LUNGS: rhonchi greater on the left. moderate air entry; reduced at left base CARDIAC: S1, S2. Regular rate and rhythm without murmur, rubs, or gallops. ABDOMEN: Soft and nontender. no HSM EXTREMITIES: No cyanosis, clubbing, or edema. NEUROLOGIC: With some tremor noted with weakness diffusely. remains altered. Laboratory Tests 08/10/16 08:45: Pro-B-Type Natriuretic Peptide 255H 08/11/16 05:51: White Blood Count 5.7, Red Blood Count 4.23L, Hemoglobin 13.3L, Hematocrit 38.2L , Mean Corpuscular Volume 90, Mean Corpuscular Hemoglobin 31.5H, Mean Corpuscular Hemoglobin Concent 34.9, Red Cell Distribution Width 11.4L, Platelet Count 126L, Mean Platelet Volume 6.7, Neutrophils (%) (Auto) 41.0L, Lymphocytes (%) (Auto) 44.7, Monocytes (%) (Auto) 9.9, Eosinophils (%) (Auto) 3.6H, Basophils (%) (Auto) 0.8, Sodium Level 145, Potassium Level 4.3, Chloride Level 106, Carbon Dioxide Level 23, Anion Gap 16H, Blood Urea Nitrogen 31H, Creatinine 1.6H, Estimat Glomerular Filtration Rate , Glucose Level 73L, Calcium Level 9.1, Magnesium Level 2.1 Current Medications Medications (Trade) Dose Ordered Sig/Angelica Route PRN Reason Start Time Stop Time Status Last Admin Dose Admin Acetaminophen (Tylenol) 650 mg Q4H PRN ORAL Mild Pain (Pain Scale 1-3) 08/07/16 21:30 09/06/16 21:29 08/09/16 16:27 Acetaminophen/ Hydrocodone Bitart ([place] 5/325) 1 tab Q6H PRN ORAL For Pain 08/10/16 15:00 08/17/16 14:59 08/11/16 00:01 Albuterol/ Ipratropium (DuoNeb 0.5-3(2.5)mg/3ml) 3 ml Q4H PRN HHN Shortness of Breath 08/07/16 21:30 08/12/16 21:29 Amlodipine Besylate (Norvasc) 10 mg DAILY ORAL 08/08/16 09:00 09/07/16 08:59 08/10/16 08:27 Aspirin (Ecotrin) 81 mg DAILY ORAL 08/08/16 09:00 09/07/16 08:59 08/10/16 08:28 Atorvastatin Calcium (Lipitor) 20 mg BEDTIME ORAL 08/08/16 23:00 09/07/16 22:59 08/10/16 21:39 Carvedilol (Coreg) 25 mg BID ORAL 08/08/16 09:00 09/07/16 08:59 08/08/16 17:03 Ceftriaxone Sodium/Dextrose (Rocephin/D5W) 55 ml @ 110 mls/hr Q24H IVPB 08/08/16 17:00 08/15/16 16:59 08/10/16 16:05 Dextrose (Dextrose 50%) STAT PRN IV Hypoglycemia 08/07/16 21:30 09/06/16 21:29 Docusate Sodium (Colace) 100 mg EVERY 12 HOURS ORAL 08/08/16 09:00 09/07/16 08:59 08/10/16 21:40 Finasteride (Proscar) 5 mg DAILY ORAL 08/08/16 09:00 09/07/16 08:59 08/10/16 08:28 Heparin Sodium (Porcine) (Heparin 5000 units/ml) 5,000 units EVERY 12 HOURS SUBQ 08/08/16 09:00 09/07/16 08:59 08/10/16 21:41 Labetalol HCl (Normodyne) 500 mg EVERY 12 HOURS ORAL 08/08/16 09:00 09/07/16 08:59 08/10/16 21:42 Levothyroxine Sodium (Synthroid) 25 mcg ACBREAKFAST ORAL 08/08/16 06:30 09/07/16 06:29 08/11/16 06:40 Magnesium Hydroxide (Mom) 30 ml HSPRN PRN ORAL Constipation 08/07/16 21:30 09/06/16 21:29 Memantine (Namenda) 5 mg DAILY ORAL 08/08/16 09:00 09/07/16 08:59 08/10/16 08:28 Mirtazapine (Remeron) 15 mg BEDTIME ORAL 08/08/16 23:00 09/07/16 22:59 08/10/16 21:40 Ondansetron HCl (Zofran) 4 mg Q6H PRN IVP Nausea & Vomiting 5/1/17 21:30 09/06/16 21:29 Pantoprazole (Protonix) 40 mg DAILY ORAL 08/10/16 09:00 09/09/16 08:59 08/10/16 08:37 Tamsulosin HCl 0.4 mg 0.4 mg BEDTIME ORAL 08/08/16 23:00 09/07/16 22:59 08/10/16 21:40 DARRYL FERRERA August 11, 2016 08:31
[2016-08-11 08:48] VITALS: BP 133/86
[2016-08-11] MEDS: Heparin 5000 units/ml inj SUBQ SCH ×2 (09:00→21:13)
[2016-08-11] MEDS: Docusate 100mg cap ORAL SCH ×2 (09:09→21:14)
[2016-08-11] MEDS: Aspirin EC 81mg tab ORAL SCH (09:10)
[2016-08-11] MEDS: Carvedilol 25mg Tab ORAL SCH ×2 (09:10→17:09)
[2016-08-11] MEDS: Memantine 5 MG TAB ORAL SCH (09:10)
--- NOTE | 2016-08-11 10:56 | Diagnostic Imaging Report ---
Indication: Dyspnea Comparison: 08/10/16 A single view chest radiograph was obtained. Findings: There is evidence of a left pleural effusion and underlying atelectasis. The heart is enlarged. Pulmonary vascularity is probably improved since yesterday. Impression: Improved pulmonary vascular status Persistent left pleural effusion.
--- NOTE | 2016-08-11 11:03 | General Progress Note ---
Assessment/Plan Assessment/Plan COPD Exacerbation improving UTI - Proteus on IV Abx. Check Abd US Subjective Allergies: Coded Allergies: No Known Allergies (Verified , 06/04/07) Subjective c/o Abd Pain Objective Last 24 Hour Vital Signs Date Time Temp Pulse Resp B/P Pulse Ox O2 Delivery O2 Flow Rate FiO2 08/11/16 09:10 60 133/86 08/11/16 09:10 60 133/86 08/11/16 09:09 60 133/86 08/11/16 08:48 97.9 60 18 133/86 98 Nasal Cannula 2.0 08/11/16 08:00 58 08/11/16 07:56 Nasal Cannula 2.0 08/11/16 07:54 98 Nasal Cannula 2.0 08/11/16 07:53 65 18 Nasal Cannula 2.0 08/11/16 04:05 98.0 57 20 146/86 96 Room Air 08/11/16 04:00 57 08/11/16 00:00 61 08/11/16 00:00 97.7 54 20 150/76 95 Room Air 08/10/16 21:42 69 123/76 08/10/16 20:34 69 16 Nasal Cannula 2.0 08/10/16 20:10 97.3 63 20 123/76 96 Nasal Cannula 2.0 08/10/16 20:00 63 08/10/16 19:00 Nasal Cannula 2.0 08/10/16 19:00 96 Nasal Cannula 2.0 08/10/16 17:14 57 137/79 08/10/16 16:23 97.9 08/10/16 16:00 97.5 57 16 137/79 94 Room Air 08/10/16 15:03 60 08/10/16 12:52 58 08/10/16 12:00 97.9 56 19 142/88 96 Nasal Cannula 2.0 Intake and Output 08/10/16 08/11/16 18:59 06:59 Intake Total 555 ml Output Total 450 ml 500 ml Balance 105 ml -500 ml Intake Oral 400 ml IV Total 155 ml Output Urine Total 450 ml 500 ml Laboratory Tests 08/11/16 05:51: White Blood Count 5.7, Red Blood Count 4.23L, Hemoglobin 13.3L, Hematocrit 38.2L , Mean Corpuscular Volume 90, Mean Corpuscular Hemoglobin 31.5H, Mean Corpuscular Hemoglobin Concent 34.9, Red Cell Distribution Width 11.4L, Platelet Count 126L, Mean Platelet Volume 6.7, Neutrophils (%) (Auto) 41.0L, Lymphocytes (%) (Auto) 44.7, Monocytes (%) (Auto) 9.9, Eosinophils (%) (Auto) 3.6H, Basophils (%) (Auto) 0.8, Sodium Level 145, Potassium Level 4.3, Chloride Level 106, Carbon Dioxide Level 23, Anion Gap 16H, Blood Urea Nitrogen 31H, Creatinine 1.6H, Estimat Glomerular Filtration Rate , Glucose Level 73L, Calcium Level 9.1, Magnesium Level 2.1 Height (Feet): 5 Height (Inches): 10.00 Weight (Pounds): 145 Objective CV RR Lungs CTA Abd SNT. BS + E No CCE LACI OLMOS August 11, 2016 11:03
[2016-08-11 12:06] VITALS: BP 131/54
[2016-08-11] MEDS ORDERED: NS 275ml ONE (15:23)
[2016-08-11] MEDS ORDERED: Tubing IV Secondary IV ONE (15:23)
[2016-08-11 16:13] VITALS: BP 126/96
[2016-08-11] MEDS: cefTRIAXone 1gm/D5W 55ml IVPB SCH ×2 (17:09)
[2016-08-11 20:00] VITALS: BP 112/53
[2016-08-11] MEDS: Tamsulosin 0.4mg cap ORAL SCH (21:14)
[2016-08-11] MEDS: Atorvastatin 20mg tab ORAL SCH (21:14)
[2016-08-12] VITALS (7 sets, daily range): BP systolic 125–163; BP diastolic 53–92
[2016-08-12] MEDS: Norco 5mg/325mg tab ORAL PRN (03:59)
[2016-08-12] MEDS: Levothyroxine 25mcg tab ORAL SCH (06:26)
[2016-08-12] MEDS: Docusate 100mg cap ORAL SCH ×2 (08:17→21:21)
[2016-08-12] MEDS: Memantine 5 MG TAB ORAL SCH (08:17)
[2016-08-12] MEDS: Heparin 5000 units/ml inj SUBQ SCH ×2 (08:17→21:25)
[2016-08-12] MEDS: Aspirin EC 81mg tab ORAL SCH (08:17)
[2016-08-12] MEDS: Carvedilol 25mg Tab ORAL SCH ×2 (08:17→17:38)
--- NOTE | 2016-08-12 08:59 | Pulmonology Progress Note ---
Assessment/Plan Assessment/Plan IMPRESSION: 1. Pneumonia, with evidence of respiratory congestion. left base 2. Shortness of breath. 3. Possible aspiration versus [facility] related pneumonia. 4. Probable dehydration with acute renal failure. 5. Hypercholesterolemia. 6. History of CVA. 7. pulmonary congestion 8. possible pleural effusion left PLAN antibiotics IV-likely can transition to po soon respiratory care CPT for additional day and dc oxygen therapy aspiration precautions follow up chest xr 08/14 off IV fluids maintain meds ongoing acute care follow up monitor closely for change hope to proceed with dc planning soon impression, plan, and exam edited and reviewed in detail care discussed with RN Subjective Allergies: Coded Allergies: No Known Allergies (Verified , 06/04/07) Subjective less congested on oxygen Objective Last 24 Hour Vital Signs Date Time Temp Pulse Resp B/P Pulse Ox O2 Delivery O2 Flow Rate FiO2 08/12/16 08:17 62 131/80 08/12/16 08:17 62 131/80 08/12/16 08:16 62 131/80 08/12/16 07:51 96.8 62 20 131/80 94 Nasal Cannula 2.0 08/12/16 07:15 80 18 95 Nasal Cannula 2.0 28 08/12/16 07:15 Nasal Cannula 2.0 28 08/12/16 07:15 95 Nasal Cannula 2.0 28 08/12/16 07:10 78 20 95 Nasal Cannula 2.0 28 08/12/16 05:00 97.7 57 20 140/78 94 Nasal Cannula 2.0 08/12/16 04:00 99.1 64 20 163/79 97 Nasal Cannula 2.0 28 08/12/16 04:00 61 08/12/16 03:16 Nasal Cannula 08/12/16 03:16 Nasal Cannula 08/12/16 00:00 99.1 86 20 154/79 97 Nasal Cannula 2.0 28 08/12/16 00:00 60 08/11/16 23:34 82 18 97 Nasal Cannula 2.0 08/11/16 23:33 81 20 97 Nasal Cannula 2.0 08/11/16 21:17 66 112/53 08/11/16 20:00 63 08/11/16 20:00 99.1 86 18 112/53 94 Room Air 08/11/16 19:00 97 Nasal Cannula 2.0 08/11/16 19:00 Nasal Cannula 2.0 08/11/16 19:00 62 18 Nasal Cannula 2.0 08/11/16 18:50 80 18 98 Nasal Cannula 2.0 08/11/16 18:50 79 20 98 Nasal Cannula 2.0 08/11/16 17:09 64 126/96 08/11/16 16:13 98.2 64 18 126/96 94 Nasal Cannula 2.0 08/11/16 16:00 63 08/11/16 15:40 76 18 97 Nasal Cannula 2.0 08/11/16 15:36 76 20 97 Nasal Cannula 2.0 08/11/16 12:06 97.7 57 18 131/54 95 Nasal Cannula 2.0 08/11/16 12:00 59 08/11/16 09:10 60 133/86 08/11/16 09:10 60 133/86 08/11/16 09:09 60 133/86 Intake and Output 08/11/16 08/12/16 19:00 07:00 Intake Total 830 ml 200 ml Output Total 400 ml 1150 ml Balance 430 ml -950 ml Intake Oral 720 ml 200 ml IV Total 110 ml Output Urine Total 400 ml 1150 ml Objective GENERAL: A well developed male with advanced age. HEENT: Negative. Extraocular movements are intact. Oropharynx is slightly reduced gag. NECK: Otherwise supple with no jugular venous distention. LUNGS: rhonchi greater on the left. moderate air entry; reduced at left base CARDIAC: S1, S2. Regular rate and rhythm without murmur, rubs, or gallops. ABDOMEN: Soft and nontender. no HSM EXTREMITIES: No cyanosis, clubbing, or edema. NEUROLOGIC: With some tremor noted with weakness diffusely. no real change reviewed and edited Current Medications Medications (Trade) Dose Ordered Sig/Angelica Route PRN Reason Start Time Stop Time Status Last Admin Dose Admin Acetaminophen (Tylenol) 650 mg Q4H PRN ORAL Mild Pain (Pain Scale 1-3) 08/07/16 21:30 09/06/16 21:29 08/09/16 16:27 Acetaminophen/ Hydrocodone Bitart ([place] 5/325) 1 tab Q6H PRN ORAL For Pain 08/10/16 15:00 08/17/16 14:59 08/12/16 03:59 Albuterol/ Ipratropium (DuoNeb 0.5-3(2.5)mg/3ml) 3 ml Q4H PRN HHN Shortness of Breath 08/07/16 21:30 08/12/16 21:29 Amlodipine Besylate (Norvasc) 10 mg DAILY ORAL 08/08/16 09:00 09/07/16 08:59 08/12/16 08:17 Aspirin (Ecotrin) 81 mg DAILY ORAL 08/08/16 09:00 09/07/16 08:59 08/12/16 08:17 Atorvastatin Calcium (Lipitor) 20 mg BEDTIME ORAL 08/08/16 23:00 09/07/16 22:59 08/11/16 21:14 Carvedilol (Coreg) 25 mg BID ORAL 08/08/16 09:00 09/07/16 08:59 08/12/16 08:17 Ceftriaxone Sodium/Dextrose (Rocephin/D5W) 55 ml @ 110 mls/hr Q24H IVPB 08/08/16 17:00 08/15/16 16:59 08/11/16 17:09 Dextrose (Dextrose 50%) STAT PRN IV Hypoglycemia 08/07/16 21:30 09/06/16 21:29 Docusate Sodium (Colace) 100 mg EVERY 12 HOURS ORAL 08/08/16 09:00 09/07/16 08:59 08/12/16 08:17 Finasteride (Proscar) 5 mg DAILY ORAL 08/08/16 09:00 09/07/16 08:59 08/12/16 08:17 Heparin Sodium (Porcine) (Heparin 5000 units/ml) 5,000 units EVERY 12 HOURS SUBQ 08/08/16 09:00 09/07/16 08:59 08/11/16 21:13 Labetalol HCl (Normodyne) 500 mg EVERY 12 HOURS ORAL 08/08/16 09:00 09/07/16 08:59 08/12/16 08:16 Levothyroxine Sodium (Synthroid) 25 mcg ACBREAKFAST ORAL 08/08/16 06:30 09/07/16 06:29 08/12/16 06:26 Magnesium Hydroxide (Mom) 30 ml HSPRN PRN ORAL Constipation 08/07/16 21:30 09/06/16 21:29 Memantine (Namenda) 5 mg DAILY ORAL 08/08/16 09:00 09/07/16 08:59 08/12/16 08:17 Mirtazapine (Remeron) 15 mg BEDTIME ORAL 08/08/16 23:00 09/07/16 22:59 08/11/16 21:14 Ondansetron HCl (Zofran) 4 mg Q6H PRN IVP Nausea & Vomiting 08/07/16 21:30 09/06/16 21:29 Pantoprazole (Protonix) 40 mg DAILY ORAL 08/10/16 09:00 09/09/16 08:59 08/12/16 08:17 Tamsulosin HCl 0.4 mg 0.4 mg BEDTIME ORAL 08/08/16 23:00 09/07/16 22:59 08/11/16 21:14 DARRYL FERRERA August 12, 2016 08:59
--- NOTE | 2016-08-12 09:07 | General Progress Note ---
Assessment/Plan Assessment/Plan 1) Proteus UTI 2) COPD 3) ckd3 Plan pending US report continue Abx OK to [facility] SN[facility] once US abd is ok Subjective Allergies: Coded Allergies: No Known Allergies (Verified , 06/04/07) Subjective No acute event Objective Last 24 Hour Vital Signs Date Time Temp Pulse Resp B/P Pulse Ox O2 Delivery O2 Flow Rate FiO2 08/12/16 08:17 62 131/80 08/12/16 08:17 62 131/80 08/12/16 08:16 62 131/80 08/12/16 07:51 96.8 62 20 131/80 94 Nasal Cannula 2.0 08/12/16 07:15 80 18 95 Nasal Cannula 2.0 28 08/12/16 07:15 Nasal Cannula 2.0 28 08/12/16 07:15 95 Nasal Cannula 2.0 28 08/12/16 07:10 78 20 95 Nasal Cannula 2.0 28 08/12/16 05:00 97.7 57 20 140/78 94 Nasal Cannula 2.0 08/12/16 04:00 99.1 64 20 163/79 97 Nasal Cannula 2.0 28 08/12/16 04:00 61 08/12/16 03:16 Nasal Cannula 08/12/16 03:16 Nasal Cannula 08/12/16 00:00 99.1 86 20 154/79 97 Nasal Cannula 2.0 28 08/12/16 00:00 60 08/11/16 23:34 82 18 97 Nasal Cannula 2.0 08/11/16 23:33 81 20 97 Nasal Cannula 2.0 08/11/16 21:17 66 112/53 08/11/16 20:00 63 08/11/16 20:00 99.1 86 18 112/53 94 Room Air 08/11/16 19:00 97 Nasal Cannula 2.0 08/11/16 19:00 Nasal Cannula 2.0 08/11/16 19:00 62 18 Nasal Cannula 2.0 08/11/16 18:50 80 18 98 Nasal Cannula 2.0 08/11/16 18:50 79 20 98 Nasal Cannula 2.0 08/11/16 17:09 64 126/96 08/11/16 16:13 98.2 64 18 126/96 94 Nasal Cannula 2.0 08/11/16 16:00 63 08/11/16 15:40 76 18 97 Nasal Cannula 2.0 08/11/16 15:36 76 20 97 Nasal Cannula 2.0 08/11/16 12:06 97.7 57 18 131/54 95 Nasal Cannula 2.0 08/11/16 12:00 59 08/11/16 09:10 60 133/86 08/11/16 09:10 60 133/86 08/11/16 09:09 60 133/86 Intake and Output 08/11/16 08/12/16 19:00 07:00 Intake Total 830 ml 200 ml Output Total 400 ml 1150 ml Balance 430 ml -950 ml Intake Oral 720 ml 200 ml IV Total 110 ml Output Urine Total 400 ml 1150 ml Height (Feet): 5 Height (Inches): 10.00 Weight (Pounds): 145 Objective NAD,confused CTA b/l,no rales, no rhonchi S1,S2,RRR,no M/R/G soft, non tender, BS+ no edema MADDEN,MARIUM August 12, 2016 09:07
--- NOTE | 2016-08-12 11:51 | Diagnostic Imaging Report ---
Indication: Dyspnea Comparison: 08/11/2016 A single view chest radiograph was obtained. Findings: Left pleural effusion again demonstrated. Mild interstitial edema noted. Heart is enlarged. Impression: Mild interstitial edema, slightly worse compared to yesterday. Left pleural effusion suspected.
[2016-08-12] MEDS: cefTRIAXone 1gm/D5W 55ml IVPB SCH ×2 (16:18)
[2016-08-12] MEDS: Tamsulosin 0.4mg cap ORAL SCH (21:21)
[2016-08-12] MEDS: Atorvastatin 20mg tab ORAL SCH (21:21)
[2016-08-13 00:29] VITALS: BP 126/78
[2016-08-13 04:00] VITALS: BP 123/74
[2016-08-13] MEDS: Levothyroxine 25mcg tab ORAL SCH (06:40)
[2016-08-13 08:16] VITALS: BP 144/86
--- NOTE | 2016-08-13 08:32 | Pulmonology Progress Note ---
Assessment/Plan Assessment/Plan IMPRESSION: 1. Pneumonia, with evidence of respiratory congestion. left base 2. Shortness of breath. 3. Possible aspiration versus [facility] related pneumonia. 4. Probable dehydration with acute renal failure. 5. Hypercholesterolemia. 6. History of CVA. 7. pulmonary congestion 8. possible pleural effusion left PLAN antibiotics noted respiratory care CPT may dc oxygen therapy aspiration precautions follow up chest xr 08/14 ordered off IV fluids maintain meds monitor closely for change hope to proceed with dc planning soon with follow up cxr and exam impression, plan, and exam edited and reviewed in detail care discussed with RN Subjective ROS Limited/Unobtainable: Yes Allergies: Coded Allergies: No Known Allergies (Verified , 06/04/07) Subjective less congested on oxygen comfortable Objective Last 24 Hour Vital Signs Date Time Temp Pulse Resp B/P Pulse Ox O2 Delivery O2 Flow Rate FiO2 08/13/16 08:16 96.3 58 20 144/86 94 Nasal Cannula 2.0 08/13/16 04:00 97.8 59 19 123/74 97 Room Air 08/13/16 04:00 55 08/13/16 00:29 97.6 56 19 126/78 Room Air 08/13/16 00:00 55 08/12/16 21:00 54 125/53 08/12/16 20:00 55 08/12/16 20:00 97.6 57 20 125/53 96 Room Air 08/12/16 19:24 60 18 96 Nasal Cannula 2.0 28 08/12/16 19:17 Nasal Cannula 2.0 28 08/12/16 19:17 60 18 96 Nasal Cannula 2.0 28 08/12/16 19:17 96 Nasal Cannula 2.0 28 08/12/16 17:38 59 126/74 08/12/16 16:00 58 08/12/16 15:42 97.7 59 20 126/74 98 Room Air 08/12/16 15:29 66 18 95 Nasal Cannula 2.0 28 08/12/16 15:24 67 20 95 Nasal Cannula 2.0 28 08/12/16 12:00 68 08/12/16 11:29 97.1 64 20 129/92 95 Nasal Cannula 2.0 08/12/16 11:05 68 18 95 Nasal Cannula 2.0 28 08/12/16 11:00 66 20 95 Nasal Cannula 2.0 28 Intake and Output 08/12/16 08/13/16 19:00 07:00 Intake Total 420 ml 180 ml Output Total 350 ml 600 ml Balance 70 ml -420 ml Intake Oral 420 ml 180 ml Output Urine Total 350 ml 600 ml Objective GENERAL: A well developed male with advanced age. HEENT: Negative. Extraocular movements are intact. Oropharynx is slightly reduced gag. NECK: Otherwise supple with no jugular venous distention. LUNGS: rhonchi reduced. moderate air entry; reduced at left base CARDIAC: S1, S2. Regular rate and rhythm without murmur, rubs, or gallops. ABDOMEN: Soft and nontender. no HSM EXTREMITIES: No cyanosis, clubbing, or edema. NEUROLOGIC: tremor noted with weakness diffusely. no real change reviewed and edited Current Medications Medications (Trade) Dose Ordered Sig/Angelica Route PRN Reason Start Time Stop Time Status Last Admin Dose Admin Acetaminophen (Tylenol) 650 mg Q4H PRN ORAL Mild Pain (Pain Scale 1-3) 08/07/16 21:30 09/06/16 21:29 08/09/16 16:27 Acetaminophen/ Hydrocodone Bitart ([place] 5/325) 1 tab Q6H PRN ORAL For Pain 08/10/16 15:00 08/17/16 14:59 08/12/16 03:59 Amlodipine Besylate (Norvasc) 10 mg DAILY ORAL 08/08/16 09:00 09/07/16 08:59 08/12/16 08:17 Aspirin (Ecotrin) 81 mg DAILY ORAL 08/08/16 09:00 09/07/16 08:59 08/12/16 08:17 Atorvastatin Calcium (Lipitor) 20 mg BEDTIME ORAL 08/08/16 23:00 09/07/16 22:59 08/12/16 21:21 Carvedilol (Coreg) 25 mg BID ORAL 08/08/16 09:00 09/07/16 08:59 08/12/16 08:17 Ceftriaxone Sodium/Dextrose (Rocephin/D5W) 55 ml @ 110 mls/hr Q24H IVPB 08/08/16 17:00 08/15/16 16:59 08/12/16 16:18 Dextrose (Dextrose 50%) STAT PRN IV Hypoglycemia 08/07/16 21:30 09/06/16 21:29 Docusate Sodium (Colace) 100 mg EVERY 12 HOURS ORAL 08/08/16 09:00 09/07/16 08:59 08/12/16 21:21 Finasteride (Proscar) 5 mg DAILY ORAL 08/08/16 09:00 09/07/16 08:59 08/12/16 08:17 Heparin Sodium (Porcine) (Heparin 5000 units/ml) 5,000 units EVERY 12 HOURS SUBQ 08/08/16 09:00 09/07/16 08:59 08/12/16 21:25 Labetalol HCl (Normodyne) 500 mg EVERY 12 HOURS ORAL 08/08/16 09:00 09/07/16 08:59 08/12/16 08:16 Levothyroxine Sodium (Synthroid) 25 mcg ACBREAKFAST ORAL 08/08/16 06:30 09/07/16 06:29 08/13/16 06:40 Magnesium Hydroxide (Mom) 30 ml HSPRN PRN ORAL Constipation 08/07/16 21:30 09/06/16 21:29 Memantine (Namenda) 5 mg DAILY ORAL 08/08/16 09:00 09/07/16 08:59 08/12/16 08:17 Mirtazapine (Remeron) 15 mg BEDTIME ORAL 08/08/16 23:00 09/07/16 22:59 08/12/16 21:21 Ondansetron HCl (Zofran) 4 mg Q6H PRN IVP Nausea & Vomiting 08/07/16 21:30 09/06/16 21:29 Pantoprazole (Protonix) 40 mg DAILY ORAL 08/10/16 09:00 09/09/16 08:59 08/12/16 08:17 Tamsulosin HCl 0.4 mg 0.4 mg BEDTIME ORAL 08/08/16 23:00 09/07/16 22:59 08/12/16 21:21 DARRYL FERRERA August 13, 2016 08:32
[2016-08-13] MEDS: Carvedilol 25mg Tab ORAL SCH (09:00)
--- NOTE | 2016-08-13 09:09 | General Progress Note ---
Assessment/Plan Assessment/Plan 1) Proteus UTI 2) COPD 3) ckd3 Plan Renal US--no obstruction DC ABx OK to [facility] today Discussed with RN Subjective Allergies: Coded Allergies: No Known Allergies (Verified , 06/04/07) Subjective No acute event Objective Last 24 Hour Vital Signs Date Time Temp Pulse Resp B/P Pulse Ox O2 Delivery O2 Flow Rate FiO2 08/13/16 08:16 96.3 58 20 144/86 94 Nasal Cannula 2.0 08/13/16 07:41 Nasal Cannula 2.0 28 08/13/16 07:40 98 Nasal Cannula 2.0 28 08/13/16 04:00 97.8 59 19 123/74 97 Room Air 08/13/16 04:00 55 08/13/16 00:29 97.6 56 19 126/78 Room Air 08/13/16 00:00 55 08/12/16 21:00 54 125/53 08/12/16 20:00 55 08/12/16 20:00 97.6 57 20 125/53 96 Room Air 08/12/16 19:24 60 18 96 Nasal Cannula 2.0 28 08/12/16 19:17 Nasal Cannula 2.0 28 08/12/16 19:17 60 18 96 Nasal Cannula 2.0 28 08/12/16 19:17 96 Nasal Cannula 2.0 28 08/12/16 17:38 59 126/74 08/12/16 16:00 58 08/12/16 15:42 97.7 59 20 126/74 98 Room Air 08/12/16 15:29 66 18 95 Nasal Cannula 2.0 28 08/12/16 15:24 67 20 95 Nasal Cannula 2.0 28 08/12/16 12:00 68 08/12/16 11:29 97.1 64 20 129/92 95 Nasal Cannula 2.0 08/12/16 11:05 68 18 95 Nasal Cannula 2.0 28 08/12/16 11:00 66 20 95 Nasal Cannula 2.0 28 Intake and Output 08/12/16 08/13/16 19:00 07:00 Intake Total 420 ml 180 ml Output Total 350 ml 600 ml Balance 70 ml -420 ml Intake Oral 420 ml 180 ml Output Urine Total 350 ml 600 ml Height (Feet): 5 Height (Inches): 10.00 Weight (Pounds): 145 Objective NAD,confused CTA b/l,no rales, no rhonchi S1,S2,RRR,no M/R/G soft, non tender, BS+ no edema MADDEN,MARIUM August 13, 2016 09:09
[2016-08-13] MEDS: Heparin 5000 units/ml inj SUBQ SCH (09:23)
[2016-08-13] MEDS: Docusate 100mg cap ORAL SCH (09:28)
[2016-08-13] MEDS: Aspirin EC 81mg tab ORAL SCH (09:28)
[2016-08-13] MEDS: Memantine 5 MG TAB ORAL SCH (09:29)
[2016-08-13] MEDS: Norco 5mg/325mg tab ORAL PRN (09:33)
--- NOTE | 2016-08-13 10:53 | Diagnostic Imaging Report ---
Indication:Elevated Bun and Creatinine. Technique: Grayscale and duplex Doppler imaging of the kidneys performed. Comparison: None Findings: There are calcifications demonstrated within both kidneys consistent with nonobstructive stones. There is no hydronephrosis seen. Right kidney is 9.7 cm. Left kidney is 10 cm. IVC is unremarkable. Urinary bladder is nondistended. Loza catheter is noted. Impression: Nonobstructive nephrolithiasis. Loza catheter
[2016-08-13 11:28] VITALS: BP 140/90
[2016-08-13 15:41] VITALS: BP 137/80
[2016-08-13] MEDS ORDERED: D5 1/2NS 1000ml IV ONE (16:34)
[2016-08-13] MEDS ORDERED: Tubing IV Secondary IV ONE (16:34)
--- NOTE | 2016-08-15 15:55 | Cardiology Report ---
APPROVED REPORT EKG Measurement Heart [id number] [id number] Normal sinus rhythm Normal ECG
--- NOTE | 2016-08-24 03:01 | Discharge Summary 2 SIG ---
DATE OF ADMISSION: 08/07/2016 DATE OF DISCHARGE: 08/13/2016 REASON FOR ADMISSION: The patient is a 70-year-old male resident of nursing home facility with past medical history of COPD, CVA, hypertension, chronic kidney disease, and schizophrenia, presented to the emergency room with increased congestion and difficulty breathing. The patient was afebrile, pulse oximetry was stable on the room air. No leukocytosis, stable hemoglobin and hematocrit. BUN 38, creatinine 1.6, anion gap 19, and glucose 149. Troponin negative. CK 132. Lactic acid 1.6. Urinalysis was positive for evidence of UTI, positive for pyuria, nitrite, leukocyte esterase, and many bacteria. In the emergency department, chest x-ray revealed left side infiltrate with left pleural effusion. The patient admitted for further management. ADMITTING DIAGNOSES: 1. Shortness of breath. 2. Pneumonia. 3. Left pleural effusion. 4. Urinary tract infection. 5. Chronic obstructive pulmonary disease. HOSPITAL COURSE: The patient admitted. Pulmonology consult was requested. The patient was placed on supplemental oxygen. Pulmonary toilet such as nebulizing treatment and chest physical therapy provided. The patient started on empiric antibiotics. Sputum culture unable to be obtained. Urine culture positive for Proteus. The patient undergone treatment with IV antibiotics. A chest x-ray was follow up. Chest x-ray is stable prior to discharge.DVT prophylaxis provided. Electrolytes stable. Renal parameters without change. Renal ultrasound revealed nonobstructive nephrolithiasis. The patient has a chronic kidney disease stage 3. Blood culture were negative. Influenza screen test was negative. mcc medication continue. Aspiration precaution were maintained. Initially on the IV fluids, which were discontinued. Thereafter, the patient was stable for discharge. DISCHARGE DIAGNOSES: 1. Possible healthcare-associated pneumonia. 2. Left pleural effusion. 3. Proteus urinary tract infection. 4. Possible aspiration. 5. Chronic kidney disease stage 3. 6. Chronic obstructive pulmonary disease. 7. History of cerebrovascular disease. DISCHARGE MEDICATIONS: See medication reconciliation list. The patient is status post treatment with antibiotics. DISCHARGE INSTRUCTIONS: The patient discharged to nursing home facility. Follow up with the medical doctor at the facility. Treasure Soriano M.D. I have been assigned to dictate discharge summary on this account and I was not involved in the patient's management. Arlen Hall (vanchtein) NMyronPMyron DR: Gilmer JOB#: [id number] CC:
== END 2016-08-13 16:35 | DRG 178 ==
LOC: EDBD 14:01 → EMR 16:01 → 2E 16:06 → EDBEDREQ 22:39
DX: J69.0 Pneumonitis due to inhalation of food and vomit (principal); N39.0 Urinary tract infection, site not specified; N17.9 Acute kidney failure, unspecified; F03.90 Unspecified dementia, unspecified severity, without behavioral disturbance, psychotic disturbance, mood disturbance, and anxiety; I13.10 Hypertensive heart and chronic kidney disease without heart failure, with stage 1 through stage 4 chronic kidney disease, or unspecified chronic kidney disease; E86.0 Dehydration; J44.1 Chronic obstructive pulmonary disease with (acute) exacerbation; J18.9 Pneumonia, unspecified organism; N18.3 Chronic kidney disease, stage 3 (moderate); E78.00 Pure hypercholesterolemia, unspecified; Z86.73 Personal history of transient ischemic attack (TIA), and cerebral infarction without residual deficits; B96.4 Proteus (mirabilis) (morganii) as the cause of diseases classified elsewhere; F20.9 Schizophrenia, unspecified; H54.0 Blindness, both eyes; E03.9 Hypothyroidism, unspecified; N40.0 Benign prostatic hyperplasia without lower urinary tract symptoms
CPT/HCPCS: 36415; 36600; 71010; 74000; 76775; 80048; 80053; 81003; 82550; 82553; 82803; 82962; 83605; 83735; 83880; 84484; 85025; 86710; 87040; 87081; 87086; 87181; 93005; 94664; 94760; J7620

== ENCOUNTER 2017-12-17 13:13 | Emergency (ER) | payer MEDICARE, OTHER ==
[~2017-12-17] VITALS: Ht 165.1 cm; Wt 81.6 kg
[~2017-12-17 13:13] MED LIST changes: +ATORVASTATIN CA40 MG ORAL; +ECOTRIN325 MG ORAL; +LANSOPRAZOLE30 MG ORAL; +LEVOTHYROXINE25 MCG ORAL; +NAMENDA5 MG ORAL; +NORMODYNE300 MG ORAL; +NORVASC10 MG ORAL; +TAMSULOSIN HCL0.4 MG ORAL
[2017-12-17 13:45] VITALS: BP 117/75
[2017-12-17] MEDS ORDERED: LORazepam Inj 2mg/ml 1ml IM ONE (13:45)
--- NOTE | 2017-12-17 13:58 | Emergency Room Report ---
History of Present Illness General Chief Complaint: Head Injury Source: Patient, Medical Record, EMS Present Illness HPI This patient presents from a long term facility. He is here status post an unwitnessed fall. Apparently he was trying to get up from his wheelchair and fell and hit his head. He complains of pain in his head. He is unsure if he became lightheaded or tripped. He has no other complaints at this time. Allergies: Coded Allergies: No Known Allergies (Verified , 06/04/07) Patient History Past Medical History: see triage record, HTN, CAD, CVA/TIA, renal disease - CKD , other - Hypothyroid Social History: Denies: smoking, alcohol use, drug use Reviewed Nursing Documentation: PMH: Agreed; PSxH: Agreed Nursing Documentation-PMH Hx Cardiac Problems: No Hx Hypertension: Yes Hx COPD: Yes Hx Diabetes: Yes Hx Cancer: No Hx Gastrointestinal Problems: Yes Hx Neurological Problems: No Hx Cerebrovascular Accident: Yes Review of Systems All Other Systems: negative except mentioned in HPI Physical Exam Vital Signs Date Time Temp Pulse Resp B/P (MAP) Pulse Ox O2 Delivery O2 Flow Rate FiO2 12/17/17 13:08 98.0 68 20 119/69 93 Room Air 98.1 Sp02 EP Interpretation: reviewed, normal General Appearance: no apparent distress, alert, GCS 15, non-toxic Head: normocephalic, atraumatic Eyes: bilateral eye normal inspection, bilateral eye PERRL ENT: hearing grossly normal, normal pharynx, no angioedema, normal voice Neck: full range of motion, supple/symm/no masses Respiratory: chest non-tender, lungs clear, normal breath sounds, no respiratory distress, no retraction, no accessory muscle use, speaking full sentences Cardiovascular #1: regular rate, rhythm, no edema Gastrointestinal: normal bowel sounds, non tender, soft, non-distended, no guarding, no rebound Rectal: deferred Musculoskeletal: normal range of motion Neurologic: alert, responsive, motor strength/tone normal, sensory intact, speech normal Psychiatric: judgement/insight normal, memory normal, mood/affect normal, no suicidal/homicidal ideation Skin: normal color, warm/dry, well hydrated, other - Diffuse erythematous maculopapular rash with excoriations. Medical Decision Making Diagnostic Impression: Primary Impression: Fall Additional Impressions: Closed head injury UTI (urinary tract infection) Tracheomalacia ER Course This patient presents with fall. He had head trauma. He is a poor historian. I went ahead and obtained a CT of his head and C-spine. I then an incidental finding of tracheomalacia, there were no acute findings. The patient's laboratory values are at his baseline, specifically his renal function. Patient 's urinalysis is positive for a urinary tract infection. This patient has a history of BPH which is likely the etiology. He was given IV Rocephin here in the emergency department. I discussed the patient's workup with the patient's primary care physician Dr. Marinelli who is communication technician for Dr. Clifton. The patient will be returned to the long term facility for treatment for his prostatitis there. Laboratory Tests Test 12/17/17 14:30 White Blood Count 6.3 K/UL (4.8-10.8) Red Blood Count 4.11 M/UL (4.70-6.10) L Hemoglobin 12.6 G/DL (14.2-18.0) L Hematocrit 36.8 % (42.0-52.0) L Mean Corpuscular Volume 90 FL (80-99) Mean Corpuscular Hemoglobin 30.7 PG (27.0-31.0) Mean Corpuscular Hemoglobin Concent 34.3 G/DL (32.0-36.0) Red Cell Distribution Width 11.1 % (11.6-14.8) L Platelet Count 142 K/UL (150-450) L Mean Platelet Volume 6.2 FL (6.5-10.1) L Neutrophils (%) (Auto) % (45.0-75.0) Lymphocytes (%) (Auto) % (20.0-45.0) Monocytes (%) (Auto) % (1.0-10.0) Eosinophils (%) (Auto) % (0.0-3.0) Basophils (%) (Auto) % (0.0-2.0) Neutrophils % (Manual) Pending Lymphocytes % (Manual) Pending Platelet Estimate Pending Platelet Morphology Pending Prothrombin Time 10.7 SEC (9.30-11.50) Prothrombin Time INR 1.0 (0.9-1.1) PTT 28 SEC (23-33) Urine Color Yellow Urine Appearance Slightly cloudy Urine pH 9 (4.5-8.0) Urine Specific [place] 1.010 (1.005-1.035) Urine Protein 3+ (NEGATIVE) H Urine Glucose (UA) Negative (NEGATIVE) Urine Ketones Negative (NEGATIVE) Urine Blood 4+ (NEGATIVE) H Urine Nitrite Negative (NEGATIVE) Urine Bilirubin Negative (NEGATIVE) Urine Urobilinogen Normal MG/DL (0.0-1.0) Urine Leukocyte Esterase 3+ (NEGATIVE) H Urine RBC 10-15 /HPF (0 - 0) H Urine WBC 5-10 /HPF (0 - 0) H Urine Squamous Epithelial Cells None /LPF (NONE/OCC) Urine Amorphous Sediment Few /LPF (NONE) H Urine Bacteria Many /HPF (NONE) H Sodium Level 141 MMOL/L (136-145) Potassium Level 4.5 MMOL/L (3.5-5.1) Chloride Level 109 MMOL/L (98-107) H Carbon Dioxide Level 20 MMOL/L (21-32) L Anion Gap 13 mmol/L (5-15) Blood Urea Nitrogen 46 mg/dL (7-18) H Creatinine 1.6 MG/DL (0.55-1.30) H Estimate Glomerular Filtration Rate mL/min (>60) Glucose Level 138 MG/DL (74-106) H Calcium Level 8.8 MG/DL (8.5-10.1) Troponin I 0.024 ng/mL (0.000-0.056) Thyroid Stimulating Hormone (TSH) 0.542 uiU/mL (0.358-3.740) Free Thyroxine 0.95 NG/DL (0.76-1.46) Free Triiodothyronine 2.0 pg/mL (2.3-4.2) L EKG Diagnostic Results Rate: normal Rhythm: NSR ST Segments: no acute changes Rhythm Strip Diag. Results EP Interpretation: yes Rate: 60's Rhythm: NSR, no PVC's, no ectopy CT/MRI/US Diagnostic Results CT/MRI/US Diagnostic Results : Imaging Test Ordered: CT head, CT C-spine Impression See official report in EMR. No acute findings. Last Vital Signs Date Time Temp Pulse Resp B/P (MAP) Pulse Ox O2 Delivery O2 Flow Rate FiO2 12/17/17 13:08 98.0 68 20 119/69 93 Room Air 98.1 Status: improved Disposition: HOME, SELF-CARE Condition: Improved Referrals: Shechter,Pagiel MD (PCP) Ruth Arita DO Dec 17, 2017 13:58
--- NOTE | 2017-12-17 14:20 | Diagnostic Imaging Report ---
Indications: Head trauma, status post fall Technique: Spiral acquisitions obtained through the brain. Angled axial and coronal 5 x 5 mm slices were reconstructed. Total dose length product 1330.34 mGycm. CTDI vol(s) 70.38 mGy. Dose reduction achieved using automated exposure control Comparison: None. Findings: There is age-related enlargement of the ventricles and extra axial CSF spaces. There is extensive periventricular deep white matter low-attenuation. Old lacunar infarcts are seen in the left quinones radiata, right basal ganglia, left thalamus. No acute intracranial hemorrhage nor edema, mass effect, nor midline shift. Intact calvarium. Visualized orbits and sinuses are unremarkable. Impression: Chronic and age-related changes. Multiple old infarcts as described Negative for acute intracranial bleed or mass effect The CT scanner at [facility] is accredited by the [employer] and the scans are performed using protocols designed to limit radiation exposure to as low as reasonably achievable to attain images of sufficient resolution adequate for diagnostic evaluation.
--- NOTE | 2017-12-17 14:29 | Diagnostic Imaging Report ---
Indication: Neck pain, status post fall Technique: Spiral acquisitions obtained through the cervical spine. No IV contrast utilized. Multiplanar reconstructions were generated. Total dose length product 303.53 mGycm. CTDIvol(s) 14.35 mGy. Dose reduction achieved using automated exposure control. Comparison: none Findings: No acute fractures. No dislocations. Bony alignment is normal. Vertebral body heights are preserved. No prevertebral soft tissue swelling. There is degenerative narrowing of the anterior atlantoaxial joint. At C2-3, mild facet arthrosis results in mild narrowing of the bilateral neural foramina. No significant disc bulge or protrusion or spinal stenosis. At C3-4, there is moderate degenerative disc narrowing. No significant disc bulge or protrusion or spinal stenosis. There is moderate to severe narrowing of the bilateral neural foramina. At C4-5, there is broad-based central posterior disc protrusion which results in mild narrowing of the spinal canal. The neural foramina are preserved. The disc spaces preserved. At C5-6, there is mild degenerative disc narrowing. No significant disc bulge or protrusion or spinal stenosis. There is moderate narrowing of the right neural foramen. At C6-7, there is mild narrowing of the disc. There is severe narrowing of the right neural foramen. No significant disc bulge or protrusion or spinal stenosis. At C7-T1, no significant disc bulge or protrusion, spinal stenosis, neural foraminal stenosis or disc space narrowing There is mild to moderate narrowing of the trachea just below the glottis due to incompetence of the posterior membrane resulting in up to 50% diameter narrowing. The extra spinal soft tissues are otherwise unremarkable. Impression: No acute bony trauma Multilevel degenerative changes as detailed on a level by level basis above Incidental finding of borderline tracheomalacia with up to 50% proximal tracheal narrowing due to incompetence of the posterior membrane The CT scanner at [facility] is accredited by the [employer] and the scans are performed using protocols designed to limit radiation exposure to as low as reasonably achievable to attain images of sufficient resolution adequate for diagnostic evaluation.
[2017-12-17 14:49] LABS: APPEARANCE,URINE SLIGHTLY CLOUDY; BILIRUBIN, URINE NEGATIVE (NEGATIVE); GLUCOSE, URINE (UA) NEGATIVE (NEGATIVE); HEMATOCRIT 36.8 % (42.0-52.0); HEMOGLOBIN 12.6 G/DL (14.2-18.0); KETONES,URINE NEGATIVE (NEGATIVE); LEUKOCYTE ESTERASE ,URINE 3+ (NEGATIVE); MEAN CORPUSCULAR VOLUME 90 FL (80-99); NITRITE,URINE NEGATIVE (NEGATIVE); PH,URINE 9 (4.5-8.0); PLATELET COUNT 142 K/UL (150-450); PROTEIN,URINE 3+ (NEGATIVE); RED BLOOD COUNT 4.11 M/UL (4.70-6.10); RED CELL DISTRIBUTION WIDTH 11.1 % (11.6-14.8); UROBILINOGEN,URINE NORMAL MG/DL (0.0-1.0); WHITE BLOOD COUNT 6.3 K/UL (4.8-10.8)
[2017-12-17 14:50] LABS: COLOR,URINE YELLOW
[2017-12-17 15:08] LABS: ANION GAP 13 mmol/L (5-15); BLOOD UREA NITROGEN 46 mg/dL (7-18); CALCIUM 8.8 MG/DL (8.5-10.1); CARBON DIOXIDE 20 MMOL/L (21-32); CHLORIDE 109 MMOL/L (98-107); CREATININE 1.6 MG/DL (0.55-1.30); POTASSIUM 4.5 MMOL/L (3.5-5.1); SODIUM 141 MMOL/L (136-145)
[2017-12-17 15:36] VITALS: BP 108/64
[2017-12-17] MEDS ORDERED: DULCOLAX10 MG RC (16:42)
[2017-12-17] MEDS ORDERED: CLARITIN10 M2 ORAL (16:42)
[2017-12-17] MEDS ORDERED: MULTIVITAMINS1 EAC8 ORAL (16:42)
[2017-12-17] MEDS ORDERED: VITAMIN D400 INTLU ORAL (16:42)
[2017-12-17] MEDS ORDERED: cefTRIAXone 1 GM in NS 55 ML IVPB ONE (16:45)
[2017-12-17 17:15] VITALS: BP 132/84
[2017-12-17] MEDS ORDERED: CIPROFLOXACIN500 M2 ORAL (17:23)
[2017-12-17 19:09] VITALS: BP 136/95
[2017-12-17 20:40] VITALS: BP 125/74
--- NOTE | 2017-12-18 14:47 | Cardiology Report ---
APPROVED REPORT EKG Measurement Heart [id number] Normal sinus rhythm Normal ECG
== END 2017-12-17 20:42 | disposition home or self-care (01) ==
LOC: EDBD 13:13 → EMR 13:20
DX: S09.8XXA Other specified injuries of head, initial encounter (principal); W05.0XXA Fall from non-moving wheelchair, initial encounter; Y92.129 Unspecified place in nursing home as the place of occurrence of the external cause; N39.0 Urinary tract infection, site not specified; J39.8 Other specified diseases of upper respiratory tract; I10 Essential (primary) hypertension; E11.9 Type 2 diabetes mellitus without complications; J44.9 Chronic obstructive pulmonary disease, unspecified; Z86.73 Personal history of transient ischemic attack (TIA), and cerebral infarction without residual deficits
CPT/HCPCS: 36415; 70450; 72125; 80048; 81003; 84439; 84443; 84481; 84484; 85007; 85025; 85610; 85730; 87086; 87181; 93005; 96365; 96372; 99284; J0696

== ENCOUNTER 2018-01-13 14:45 | Inpatient (IN) | payer MEDICARE, OTHER ==
[~2018-01-13] VITALS: Ht 165.1 cm; Wt 70.2 kg
[~2018-01-13 14:45] MED LIST changes: +CIPROFLOXACIN500 M2 ORAL; +CLARITIN10 M2 ORAL; +DULCOLAX10 MG RC; +MULTIVITAMINS1 EAC8 ORAL; +VITAMIN D400 INTLU ORAL
[2018-01-13] MEDS ORDERED: ASPIRIN81 MG ORAL (14:52)
[2018-01-13] MEDS ORDERED: CLARITIN10 M2 ORAL (14:52)
[2018-01-13] MEDS ORDERED: NORCO 5-325 TA1 EACH ORAL (14:52)
[2018-01-13] MEDS ORDERED: ACETAMINOP160 MG/54 ORAL (14:52)
[2018-01-13] MEDS ORDERED: DiphenhydrAMINE 50mg/ml Inj IVP ONE ×2 (15:00→17:00)
[2018-01-13] MEDS ORDERED: Metoclopramide 10mg/2ml Inj IVP ONE (15:00)
[2018-01-13] MEDS ORDERED: Morphine Sulfate 4mg/ml Inj (IV USE ONLY) IVP ONE (15:00)
--- NOTE | 2018-01-13 15:02 | Emergency Room Report ---
History of Present Illness General Chief Complaint: Dizziness Source: Patient, EMS Present Illness HPI Patient's chief complaint is dizziness. This began this morning. He feels it associated with shortness of breath and chest pain. Denies any palpitations at this time. There is no nausea also. He feels the world is spinning. There is no tinnitus or headache. He rates the chest pain at 9/10 and substernal, constant and not radiating. He denies any fevers or cough. No dysuria, constipation, joint pain, abdominal pain. The patient has a skin rash that is itching. According to public relations who saw him last week is not scabies. The patient is at a long term facility. The patient's had a prior stroke, diabetes, hypertension, GERD, anemia, hypothyroidism and diverticulosis. Allergies: Coded Allergies: No Known Allergies (Verified , 06/04/07) Patient History Past Medical History: see triage record Social History: Denies: smoking, alcohol use, drug use Social History Narrative [place] Reviewed Nursing Documentation: PMH: Agreed; PSxH: Agreed Nursing Documentation-PMH Past Medical History: No History, Except For Hx Cardiac Problems: No Hx Hypertension: Yes Hx COPD: Yes - Pneumonia Hx Diabetes: Yes Hx Cancer: No Hx Gastrointestinal Problems: Yes - GERD Hx Neurological Problems: No Hx Cerebrovascular Accident: Yes Review of Systems All Other Systems: negative except mentioned in HPI Physical Exam Vital Signs Date Time Temp Pulse Resp B/P (MAP) Pulse Ox O2 Delivery O2 Flow Rate FiO2 01/13/18 14:40 97.8 61 17 115/67 98 Nasal Cannula 2.0 97.9 Sp02 EP Interpretation: reviewed, normal General Appearance: no apparent distress, alert, Chronically Ill Eyes: bilateral eye normal inspection, bilateral eye PERRL, bilateral eye other - micropthalmia ENT: moist mucus membranes Neck: supple Respiratory: chest non-tender, lungs clear, normal breath sounds Cardiovascular #1: normal peripheral pulses, regular rate, rhythm Cardiovascular #2: 2+ radial (L) Gastrointestinal: normal bowel sounds, non tender, soft, overweight Genitourinary: normal inspection Musculoskeletal: digits/nails normal, other - Atrophy left-hand Neurologic: alert, DTRs symmetric, sensory intact, no Babinski, motor weakness - upper extremities - LE good flexor and extansor strength, other - No nystagmus , oriented - 2 Psychiatric: depressed affect Skin: warm/dry, rash - Excoriated lesions with raised lesions also arms and under arms Medical Decision Making Diagnostic Impression: Primary Impression: Chest pain Qualified Codes: R07.9 - Chest pain, unspecified Additional Impressions: Dizziness Scabies Renal insufficiency UTI (urinary tract infection) Qualified Codes: N39.0 - Urinary tract infection, site not specified ER Course Patient presents with chest pain and vertiginous dizziness. Differential includes acute myocardial infarction, acute coronary syndrome, arrhythmia, cerebellar infarct, labyrinthitis, viral syndrome amongst others. Evaluation will be with EKG, chest x-ray, CT of the head and labs. The patient will be treated with gentle IV hydration, Reglan, Benadryl and morphine. In addition to that the skin lesions are suspicious for scabies and he will be covered with permethrin lotion. EKG with normal sinus rhythm rate 64 normal EKG without injury. CXR L effusion (chronic). Labs with normal WBC, anemia, elevated ESR, renal insufficiency, pyuria, normal troponin, slightly elevated BNP, elevated glucose. CT with multiple infarcts (cannot see new). Might need MRI. Complaint of itching skin, benadryl repeated. Rocephin given for UTI. Patient improved with treatment. Patient admitted telemetry Dr. Soriano. Laboratory Tests Test 01/13/18 15:25 01/13/18 15:45 White Blood Count 6.8 K/UL (4.8-10.8) Red Blood Count 3.95 M/UL (4.70-6.10) L Hemoglobin 12.9 G/DL (14.2-18.0) L Hematocrit 36.1 % (42.0-52.0) L Mean Corpuscular Volume 91 FL (80-99) Mean Corpuscular Hemoglobin 32.5 PG (27.0-31.0) H Mean Corpuscular Hemoglobin Concent 35.6 G/DL (32.0-36.0) Red Cell Distribution Width 10.6 % (11.6-14.8) L Platelet Count 142 K/UL (150-450) L Mean Platelet Volume 6.8 FL (6.5-10.1) Neutrophils (%) (Auto) 47.1 % (45.0-75.0) Lymphocytes (%) (Auto) 37.9 % (20.0-45.0) Monocytes (%) (Auto) 8.7 % (1.0-10.0) Eosinophils (%) (Auto) 5.6 % (0.0-3.0) H Basophils (%) (Auto) 0.7 % (0.0-2.0) Erythrocyte Sedimentation Rate 66 MM/HR (0-20) H Prothrombin Time 10.7 SEC (9.30-11.50) Prothrombin Time INR 1.0 (0.9-1.1) PTT 28 SEC (23-33) Sodium Level 139 MMOL/L (136-145) Potassium Level 5.0 MMOL/L (3.5-5.1) Chloride Level 108 MMOL/L (98-107) H Carbon Dioxide Level 23 MMOL/L (21-32) Anion Gap 8 mmol/L (5-15) Blood Urea Nitrogen 41 mg/dL (7-18) H Creatinine 1.6 MG/DL (0.55-1.30) H Estimate Glomerular Filtration Rate mL/min (>60) Glucose Level 134 MG/DL (74-106) H Calcium Level 8.9 MG/DL (8.5-10.1) Total Bilirubin 0.3 MG/DL (0.2-1.0) Aspartate Amino Transferase (AST) 18 U/L (15-37) Alanine Aminotransferase (ALT) 19 U/L (12-78) Alkaline Phosphatase 75 U/L (46-116) Total Creatine Kinase 144 U/L (26-308) Troponin I 0.045 ng/mL (0.000-0.056) Pro-B-Type Natriuretic Peptide 478 pg/mL (0-125) H Total Protein 7.3 G/DL (6.4-8.2) Albumin 3.3 G/DL (3.4-5.0) L Globulin 4.0 g/dL Albumin/Globulin Ratio 0.8 (1.0-2.7) L Thyroid Stimulating Hormone (TSH) 0.130 uiU/mL (0.358-3.740) Urine Color Nano Urine Appearance Slightly cloudy Urine pH 5 (4.5-8.0) Urine Specific [place] 1.015 (1.005-1.035) Urine Protein 3+ (NEGATIVE) H Urine Glucose (UA) Negative (NEGATIVE) Urine Ketones Negative (NEGATIVE) Urine Blood 3+ (NEGATIVE) H Urine Nitrite Positive (NEGATIVE) H Urine Bilirubin Negative (NEGATIVE) Urine Ictotest Negative (NEGATIVE) Urine Urobilinogen Normal MG/DL (0.0-1.0) Urine Leukocyte Esterase 3+ (NEGATIVE) H Urine RBC 15-20 /HPF (0 - 0) H Urine WBC Tntc /HPF (0 - 0) H Urine Squamous Epithelial Cells Occasional /LPF Urine Bacteria Many /HPF (NONE) H EKG Diagnostic Results Rate: normal Rhythm: NSR ST Segments: no acute changes Rhythm Strip Diag. Results EP Interpretation: yes Rhythm: NSR, no PVC's, no ectopy Chest X-Ray Diagnostic Results Chest X-Ray Diagnostic Results : Chest X-Ray Ordered: Yes # of Views/Limited/Complete: 1 View Indication: Chest Pain Interpretation: no consolidation, no pneumothorax, other - L effusion Impression: Other Electronically Signed by: Electronically signed by Roberto Gorman MD CT/MRI/US Diagnostic Results CT/MRI/US Diagnostic Results : Imaging Test Ordered: Head Impression periventricular leukoencephalopathy, atrophy, multiple infarcts Status: improved Roberto Gorman M.D. Jan 13, 2018 15:02
[2018-01-13 15:44] LABS: BASOPHILS % (AUTO) 0.7 % (0.0-2.0); EOSINOPHILS % (AUTO) 5.6 % (0.0-3.0); HEMATOCRIT 36.1 % (42.0-52.0); HEMOGLOBIN 12.9 G/DL (14.2-18.0); LYMPHOCYTES % (AUTO) 37.9 % (20.0-45.0); MEAN CORPUSCULAR VOLUME 91 FL (80-99); MONOCYTES % (AUTO) 8.7 % (1.0-10.0); NEUTROPHILS % (AUTO) 47.1 % (45.0-75.0); PLATELET COUNT 142 K/UL (150-450); RED BLOOD COUNT 3.95 M/UL (4.70-6.10); RED CELL DISTRIBUTION WIDTH 10.6 % (11.6-14.8); WHITE BLOOD COUNT 6.8 K/UL (4.8-10.8)
[2018-01-13 15:49] VITALS: BP 143/72
[2018-01-13 16:02] LABS: ANION GAP 8 mmol/L (5-15); BLOOD UREA NITROGEN 41 mg/dL (7-18); CALCIUM 8.9 MG/DL (8.5-10.1); CARBON DIOXIDE 23 MMOL/L (21-32); CHLORIDE 108 MMOL/L (98-107); CREATININE 1.6 MG/DL (0.55-1.30); SODIUM 139 MMOL/L (136-145)
[2018-01-13 16:10] LABS: ALANINE AMINOTRANSFERASE 19 U/L (12-78); ALBUMIN 3.3 G/DL (3.4-5.0); ALBUMIN/GLOBULIN RATIO 0.8 (1.0-2.7); ALKALINE PHOSPHATASE 75 U/L (46-116); ASPARTATE AMINO TRANSFERASE 18 U/L (15-37); BILIRUBIN,TOTAL 0.3 MG/DL (0.2-1.0); CREATINE KINASE 144 U/L (26-308)
[2018-01-13] MEDS ORDERED: Metoclopramide 10mg/2ml Inj ONE (16:12)
[2018-01-13 16:59] LABS: APPEARANCE,URINE SLIGHTLY CLOUDY; BILIRUBIN, URINE NEGATIVE (NEGATIVE); COLOR,URINE AMBER; GLUCOSE, URINE (UA) NEGATIVE (NEGATIVE); KETONES,URINE NEGATIVE (NEGATIVE); LEUKOCYTE ESTERASE ,URINE 3+ (NEGATIVE); NITRITE,URINE POSITIVE (NEGATIVE); PH,URINE 5 (4.5-8.0); PROTEIN,URINE 3+ (NEGATIVE); UROBILINOGEN,URINE NORMAL MG/DL (0.0-1.0)
[2018-01-13 17:39] VITALS: BP 161/90
[2018-01-13] MEDS ORDERED: cefTRIAXone 1 GM in D5W 55 ML IVPB ONE (18:15)
[2018-01-13 20:00] VITALS: BP 125/72
[2018-01-13] MEDS ORDERED: Nitroglycerin Subl 0.4mg tab SL PRN (20:00)
[2018-01-13] MEDS: Tamsulosin 0.4mg cap ORAL SCH (20:58)
[2018-01-13] MEDS: Heparin 5000 units/ml inj SUBQ SCH (21:00)
[2018-01-13] MEDS: DiphenhydrAMINE 50mg/ml Inj IVP PRN (21:35)
[2018-01-14] VITALS: BP 141/83
[2018-01-14 04:00] VITALS: BP 112/66
[2018-01-14] MEDS: Levothyroxine 25mcg tab ORAL SCH (06:15)
[2018-01-14 08:00] VITALS: BP 122/77
[2018-01-14] MEDS: Aspirin Baby 81mg ORAL SCH (08:07)
[2018-01-14] MEDS: Vitamin D 1000 IU Tab ORAL SCH (08:07)
[2018-01-14] MEDS: Multivitamin w/Minerals tab ORAL SCH (08:07)
[2018-01-14] MEDS: Memantine 5 MG TAB ORAL SCH (08:08)
[2018-01-14] MEDS: Carvedilol 25mg Tab ORAL SCH ×2 (08:08→18:00)
[2018-01-14] MEDS: Imdur 30mg tab ORAL SCH (08:08)
[2018-01-14] MEDS: Heparin 5000 units/ml inj SUBQ SCH ×2 (08:09→21:06)
--- NOTE | 2018-01-14 09:14 | Diagnostic Imaging Report ---
Indication: Dizziness Technique: Contiguous 5 mm thick transaxial imaging of the head obtained in a Siemens Sensation [address] scanner. Soft tissue and bone windows generated. Automatic Exposure Control was utilized. Total Dose length Product (DLP): 1935.[address] Dose Index Volume (CTDIvol): 70.38,70.38 mGy Comparison: 12/17/2017 Findings: There is moderate prominence of the ventricles, basal cisterns, and cerebral sulci consistent with atrophy. Moderate, nonspecific, white matter hypoattenuation is noted throughout the brain consistent with chronic small vessel disease. There is no midline shift, edema, acute hemorrhage, mass effect, or abnormal extra-axial fluid collections. Bones and extra osseous soft tissues are unremarkable. Impression: No acute intracranial bleed, mass effect or edema. Moderate atrophy of the brain. Evidence of chronic small vessel disease involving white matter tracts. [facility] has communicated the preliminary results to the Emergency Department. Their findings are largely concordant with this report. The CT scanner at [facility] is accredited by the [employer] and the scans are performed using dose optimization techniques as appropriate to a performed exam including Automatic Exposure control.
--- NOTE | 2018-01-14 10:56 | Diagnostic Imaging Report ---
Indication: Chest pain Comparison: 08/12/2016 A single view chest radiograph was obtained. Findings: Mild congestion suspected with the prominent vascularity and interstitium. Heart is enlarged. A left pleural effusion also suspected. IMPRESSION: Mild CHF suspected. Correlate clinically.
[2018-01-14 12:00] VITALS: BP 123/73
--- NOTE | 2018-01-14 14:43 | Cardiology Report ---
APPROVED REPORT EKG Measurement Heart [id number] Normal sinus rhythm Normal ECG
[2018-01-14 16:00] VITALS: BP 106/62
[2018-01-14] MEDS: cefTRIAXone 1 GM in D5W 55 ML IVPB SCH (18:52)
[2018-01-14 19:56] VITALS: BP 100/77
[2018-01-14] MEDS: Tamsulosin 0.4mg cap ORAL SCH (21:07)
[2018-01-15] VITALS: BP 97/73
[2018-01-15 04:00] VITALS: BP 142/81
[2018-01-15] MEDS: Levothyroxine 25mcg tab ORAL SCH (06:06)
[2018-01-15 08:00] VITALS: BP 152/85
[2018-01-15] MEDS: Aspirin Baby 81mg ORAL SCH (08:57)
[2018-01-15] MEDS: Carvedilol 25mg Tab ORAL SCH ×2 (08:57→17:44)
[2018-01-15] MEDS: Imdur 30mg tab ORAL SCH (08:57)
[2018-01-15] MEDS: Memantine 5 MG TAB ORAL SCH (08:58)
[2018-01-15] MEDS: Vitamin D 1000 IU Tab ORAL SCH (08:58)
[2018-01-15] MEDS: Multivitamin w/Minerals tab ORAL SCH (08:58)
[2018-01-15] MEDS: Heparin 5000 units/ml inj SUBQ SCH ×2 (09:00→21:05)
[2018-01-15 12:00] VITALS: BP 126/74
--- NOTE | 2018-01-15 13:30 | Diagnostic Imaging Report ---
Indication: Flank pain. Abdominal pain Technique: Grayscale and duplex Doppler imaging of the kidneys performed. Comparison: None Findings: The kidneys are atrophic with loss of cortex bilaterally. There are a few small cysts present within the kidneys bilaterally. There is no hydronephrosis. There is the suggestion of bilateral nephrolithiasis given the scattered punctate echogenic foci. Left kidney measures 11 cm in length. The right kidney measures approximately 11 cm in length. Bladder is nondistended. IVC not seen. IMPRESSION: Bilateral nonobstructive nephrolithiasis. Generalized atrophy of the kidneys.
[2018-01-15 16:00] VITALS: BP 124/70
--- NOTE | 2018-01-15 16:15 | History and Physical Report ---
CHIEF COMPLAINT: Dizziness. HISTORY OF PRESENT ILLNESS: This is a 72-year-old male from a alf, who was transferred to this hospital for dizziness. The patient is an extremely poor historian due to dementia. PAST MEDICAL HISTORY: 1. Organic brain syndrome. 2. Chronic kidney disease. 3. Hypothyroidism. 4. Dysphagia. 5. Benign prostatic hypertrophy. 6. DNR. 7. Gastroesophageal reflux disease. 8. Type 2 diabetes mellitus. 9. Scabies. MEDICATIONS: Amlodipine, baby aspirin, atorvastatin, Coreg, isosorbide, Namenda, Proscar, tamsulosin, MVI, Synthroid, vitamin D3, and Claritin. ALLERGIES: No known allergies. FAMILY HISTORY: Unable to obtain secondary to mental status. SOCIAL HISTORY: Unable to obtain secondary to mental status. REVIEW OF SYSTEMS: Unable to obtain secondary to mental status. PHYSICAL EXAMINATION: GENERAL: This is an elderly male, who is very confused. VITAL SIGNS: Blood pressure 123/73, pulse 62 and regular, and respirations 19. SKIN: He has diffuse maculopapular and excoriated rash all over the body. HEENT: Head is normocephalic. He has very poor vision. NECK: Supple. Trachea midline. There was no lymphadenopathy or thyromegaly. LUNGS: Clear to auscultation and percussion. HEART: Regular rate and rhythm without rubs, murmurs, or gallops. ABDOMEN: Soft and nontender. Bowel sounds were active. EXTREMITIES: No clubbing, cyanosis, or edema. NEUROLOGICAL: He is confused. There were no gross focal findings. LABORATORY AND ANCILLARY DATA: CBC - hemoglobin 12.9, otherwise within normal limits. The differential by the way shows eosinophils percentage of 5.6. Chemistry - BUN 31, creatinine 1.6. TSH level 0.13. Troponin 0.045. Chest x-ray, mild CHF. Head CT, atrophy. No acute findings. Urinalysis, too numerous to count white blood cells. ASSESSMENT: 1. Suspect urinary tract infection. 2. Organic brain syndrome. 3. Chronic kidney disease. 4. Hypothyroidism. 5. Dysphagia. 6. Benign prostatic hypertrophy. 7. DNR. 8. Gastroesophageal reflux disease. 9. Type 2 diabetes mellitus. 10. Scabies. 11. Rule out Silent Aspiration. PLAN: 1. IV fluids. 2. IV antibiotics. 3. Continue alf medications. 4. Antiscabies treatment. Treasure Soriano M.D. DR: PARAG JOB#: [id number] CC: LUCY
[2018-01-15] MEDS: cefTRIAXone 1 GM in D5W 55 ML IVPB SCH (17:44)
[2018-01-15] MEDS: DiphenhydrAMINE 50mg/ml Inj IVP PRN (17:51)
[2018-01-15] MEDS: Norco 5mg/325mg tab ORAL PRN (17:51)
[2018-01-15 20:00] VITALS: BP 115/70
[2018-01-15] MEDS: Tamsulosin 0.4mg cap ORAL SCH (21:06)
[2018-01-16] VITALS: BP 130/79
[2018-01-16 04:00] VITALS: BP 133/74
[2018-01-16] MEDS: Levothyroxine 25mcg tab ORAL SCH (05:48)
[2018-01-16 08:00] VITALS: BP 152/91
[2018-01-16] MEDS: Multivitamin w/Minerals tab ORAL SCH (09:12)
[2018-01-16] MEDS: Aspirin Baby 81mg ORAL SCH (09:12)
[2018-01-16] MEDS: Memantine 5 MG TAB ORAL SCH (09:13)
[2018-01-16] MEDS: Carvedilol 25mg Tab ORAL SCH ×2 (09:15→18:41)
[2018-01-16] MEDS: Imdur 30mg tab ORAL SCH (09:16)
[2018-01-16] MEDS: Heparin 5000 units/ml inj SUBQ SCH ×3 (09:17→20:19)
[2018-01-16] MEDS: Vitamin D 1000 IU Tab ORAL SCH (09:19)
[2018-01-16 12:00] VITALS: BP 131/80
[2018-01-16 16:00] VITALS: BP 118/72
--- NOTE | 2018-01-16 16:19 | Nephrology Progress Note ---
Assessment/Plan Plan U C+S MRSA! Renal US B Urolithiasis Urosepsis due to MRSA associated with infected stones. Needs Lithotripsy! Cannot get adequate help here. No Lithotripter available. Subjective Subjective Confused! Objective Objective Last 24 Hour Vital Signs Date Time Temp Pulse Resp B/P (MAP) Pulse Ox O2 Delivery O2 Flow Rate FiO2 01/16/18 16:00 97.3 76 20 118/72 (87) 96 97.3 01/16/18 12:00 97.5 65 20 131/80 (97) 98 97.5 01/16/18 12:00 61 01/16/18 09:16 152/91 01/16/18 09:15 78 152/91 01/16/18 09:15 78 152/91 01/16/18 09:00 Nasal Cannula 2.0 01/16/18 08:00 78 01/16/18 08:00 97.1 72 19 152/91 (111) 98 97.1 01/16/18 04:00 96.5 75 18 133/74 (93) 96 96.5 01/16/18 04:00 64 01/16/18 00:00 97.3 55 18 130/79 (96) 97 97.3 01/16/18 00:00 61 01/15/18 21:00 Nasal Cannula 2.0 01/15/18 20:00 96.8 59 16 115/70 (85) 94 96.8 01/15/18 20:00 63 01/15/18 18:21 98.6 01/15/18 17:51 98.6 01/15/18 17:44 82 124/70 Intake and Output 01/15/18 01/16/18 19:00 07:00 Intake Total 600 ml Balance 600 ml Intake Oral 600 ml # Voids 4 3 # Bowel Movements 1 Height (Feet): 5 Height (Inches): 5.00 Weight (Pounds): 154 Objective CV RR Lungs CTA Abd SNT. BS + E B contractures Neuro confused, dysarthric. Treasure Soriano MD Jan 16, 2018 16:19
[2018-01-16 20:00] VITALS: BP 137/77
[2018-01-16] MEDS: Vancomycin 1 GM in D5W 275 ML IVPB SCH (20:17)
[2018-01-16] MEDS: Tamsulosin 0.4mg cap ORAL SCH (20:17)
[2018-01-17] VITALS: BP 133/76
[2018-01-17] MEDS: Norco 5mg/325mg tab ORAL PRN (03:57)
[2018-01-17 04:00] VITALS: BP 143/80
[2018-01-17] MEDS: Levothyroxine 25mcg tab ORAL SCH (06:00)
[2018-01-17 08:00] VITALS: BP 127/71
[2018-01-17] MEDS: Multivitamin w/Minerals tab ORAL SCH (08:29)
[2018-01-17] MEDS: Carvedilol 25mg Tab ORAL SCH ×2 (08:29→17:47)
[2018-01-17] MEDS: Memantine 5 MG TAB ORAL SCH (08:29)
[2018-01-17] MEDS: Vitamin D 1000 IU Tab ORAL SCH (08:29)
[2018-01-17] MEDS: Imdur 30mg tab ORAL SCH (08:30)
[2018-01-17] MEDS: Aspirin Baby 81mg ORAL SCH (08:30)
[2018-01-17] MEDS: Heparin 5000 units/ml inj SUBQ SCH ×2 (08:31→21:14)
[2018-01-17 12:00] VITALS: BP 134/79
--- NOTE | 2018-01-17 14:32 | Nephrology Progress Note ---
Assessment/Plan Plan U C+S MRSA! Renal US B Urolithiasis Urosepsis due to MRSA associated with infected stones. Needs Lithotripsy! To get Laser Rx when urine cultures are negative! NEMESIO Krishnamurthy. Subjective Subjective Confused! Objective Objective Last 24 Hour Vital Signs Date Time Temp Pulse Resp B/P (MAP) Pulse Ox O2 Delivery O2 Flow Rate FiO2 01/17/18 12:00 97.3 63 16 134/79 (97) 99 97.3 01/17/18 12:00 63 01/17/18 09:00 Nasal Cannula 2.0 01/17/18 08:30 127/71 01/17/18 08:29 61 127/71 01/17/18 08:29 61 127/71 01/17/18 08:00 68 01/17/18 08:00 97.2 61 17 127/71 (89) 96 97.2 01/17/18 04:00 98.2 62 20 143/80 (101) 95 98.2 01/17/18 04:00 61 01/17/18 00:00 98.2 60 21 133/76 (95) 96 98.2 01/17/18 00:00 61 01/16/18 21:00 Nasal Cannula 2.0 01/16/18 20:00 66 01/16/18 20:00 98.3 68 22 137/77 (97) 97 98.3 01/16/18 18:41 64 118/72 01/16/18 16:00 64 01/16/18 16:00 97.3 76 20 118/72 (87) 96 97.3 Intake and Output 01/16/18 01/17/18 19:00 07:00 Intake Total 300 ml 1300 ml Balance 300 ml 1300 ml Intake Oral 300 ml 300 ml IV Total 1000 ml # Voids 3 # Bowel Movements 1 Height (Feet): 5 Height (Inches): 5.00 Weight (Pounds): 154 Objective CV RR Lungs CTA Abd SNT. BS + E B contractures Neuro confused, dysarthric. Treasure Sroiano MD Jan 17, 2018 14:32
[2018-01-17 16:00] VITALS: BP 131/67
[2018-01-17] MEDS: Vancomycin 1 GM in D5W 275 ML IVPB SCH (17:48)
[2018-01-17 20:00] VITALS: BP 134/80
[2018-01-17] MEDS: Tamsulosin 0.4mg cap ORAL SCH (21:13)
[2018-01-17] MEDS ORDERED: Milk of Magnesia 30ml Ud ORAL PRN (22:15)
[2018-01-18] VITALS: BP 130/75
[2018-01-18] MEDS: Norco 5mg/325mg tab ORAL PRN (02:42)
[2018-01-18 04:00] VITALS: BP 115/80
[2018-01-18] MEDS: Levothyroxine 25mcg tab ORAL SCH (05:50)
[2018-01-18 06:29] LABS: HEMATOCRIT 37.6 % (42.0-52.0); HEMOGLOBIN 13.1 G/DL (14.2-18.0); MEAN CORPUSCULAR VOLUME 89 FL (80-99); PLATELET COUNT 132 K/UL (150-450); RED BLOOD COUNT 4.23 M/UL (4.70-6.10); RED CELL DISTRIBUTION WIDTH 10.9 % (11.6-14.8)
[2018-01-18 06:55] LABS: ANION GAP 11 mmol/L (5-15); BLOOD UREA NITROGEN 26 mg/dL (7-18); CALCIUM 9.2 MG/DL (8.5-10.1); CARBON DIOXIDE 25 MMOL/L (21-32); CHLORIDE 109 MMOL/L (98-107); CREATININE 1.4 MG/DL (0.55-1.30); POTASSIUM 3.8 MMOL/L (3.5-5.1); SODIUM 145 MMOL/L (136-145)
[2018-01-18 08:00] VITALS: BP 150/84
[2018-01-18] MEDS: Vitamin D 1000 IU Tab ORAL SCH (08:26)
[2018-01-18] MEDS: Memantine 5 MG TAB ORAL SCH (08:26)
[2018-01-18] MEDS: Multivitamin w/Minerals tab ORAL SCH (08:26)
[2018-01-18] MEDS: Aspirin Baby 81mg ORAL SCH (08:27)
[2018-01-18] MEDS: Imdur 30mg tab ORAL SCH (08:27)
[2018-01-18] MEDS: Carvedilol 25mg Tab ORAL SCH (08:27)
[2018-01-18] MEDS: Heparin 5000 units/ml inj SUBQ SCH (08:29)
--- NOTE | 2018-01-18 11:35 | Consultation ---
History of Present Illness General Date patient seen: Jan 18, 2018 Chief Complaint: Dizziness Present Illness HPI 72 y/o M with hx of CVA, COPD, diabetes, Dementia, BPH, DM2, CKD, hypertension, GERD, anemia, hypothyroidism and diverticulosis presents to ED On 01/13 with dizziness ("world is spinning), SOB, CP. Has itchy rash. Patient saw trimmer buffing wheel last week and was deemed not to be scabies. Denies nausea, palpitations, SMITH, tinnitus, f/c, cough, dysuria, abd pain, joint pain. Allergies: Coded Allergies: No Known Allergies (Verified , 06/04/07) Medication History Scheduled Amlodipine Besylate (Norvasc), 10 MG ORAL DAILY, (Reported) Aspirin* (Aspirin*), 81 MG ORAL DAILY, (Reported) Atorvastatin Calcium* (Atorvastatin Calcium*), 20 MG ORAL BEDTIME, (Reported) Carvedilol* (Carvedilol*), 25 MG ORAL BID, (Reported) Finasteride* (Proscar*), 5 MG ORAL DAILY, (Reported) Isosorbide Mononitrate (Isosorbide Mononitrate Er), 60 MG PO DAILY, (Reported) Levothyroxine Sodium* (Levothyroxine Sodium*), 25 MCG ORAL ACBREAKFAST, ( Reported) Memantine Hcl* (Namenda*), 5 MG ORAL DAILY, (Reported) Multivitamin With Minerals (Multivitamins With Minerals*), 1 TAB ORAL DAILY, ( Reported) Tamsulosin Hcl (Tamsulosin Hcl*), 0.4 MG ORAL BEDTIME, (Reported) Vitamin D (Vitamin D3), 1,000 UNITS ORAL DAILY, (Reported) Discontinued Medications Acetaminophen* (Acetaminophen*), 650 MG ORAL Q6H PRN for Mild Pain/Temp > 100.5, (Reported) Discontinued Reason: Pt stopped taking med Aspirin* (Ecotrin*), 81 MG ORAL DAILY, (Reported) Discontinued Reason: Pt stopped taking med Bisacodyl (Dulcolax), 10 MG RC DAILY PRN for Constipation, (Reported) Discontinued Reason: Pt stopped taking med Ciprofloxacin Hcl* (Ciprofloxacin Hcl*), 500 MG ORAL Q12H Discontinued Reason: Pt stopped taking med Hydrocodone Bit/Acetaminophen 5-325* ([place] 5-325*), 1 TAB ORAL Q6H PRN for For Pain, (Reported) Discontinued Reason: Pt stopped taking med Labetalol HCl (Labetalol HCl), 500 MG ORAL EVERY 12 HOURS, (Reported) Discontinued Reason: Pt stopped taking med Loratadine (Claritin), 10 MG ORAL DAILY, (Reported) Discontinued Reason: MD discontinued med Mirtazapine* (Mirtazapine*), 15 MG ORAL BEDTIME, (Reported) Discontinued Reason: Pt stopped taking med Patient History Healthcare decision maker Resuscitation status Full Code Advanced Directive on File No Patient History Narrative Pmhx: as above Shx:Denies: smoking, alcohol use, drug use Fhx: non contributory Review of Systems All Other Systems: negative except mentioned in HPI Physical Exam Physical Exam Narrative GENERAL: This is an elderly male, who is very confused. SKIN: He has diffuse maculopapular and excoriated rash all over the body. HEENT: Head is normocephalic. He has very poor vision. NECK: Supple. Trachea midline. There was no lymphadenopathy or thyromegaly. LUNGS: Clear to auscultation and percussion. HEART: Regular rate and rhythm without rubs, murmurs, or gallops. ABDOMEN: Soft and nontender. Bowel sounds were active. EXTREMITIES: No clubbing, cyanosis, or edema. NEUROLOGICAL: He is confused. There were no gross focal findings. Last 24 Hour Vital Signs Date Time Temp Pulse Resp B/P (MAP) Pulse Ox O2 Delivery O2 Flow Rate FiO2 01/18/18 09:00 Nasal Cannula 2.0 01/18/18 08:27 150/84 01/18/18 08:27 69 150/84 01/18/18 08:27 69 150/84 01/18/18 08:00 97.6 69 20 150/84 (106) 98 97.6 01/18/18 08:00 74 01/18/18 04:00 68 01/18/18 04:00 97.3 66 18 115/80 (92) 96 97.3 01/18/18 00:00 61 01/18/18 00:00 97.5 64 18 130/75 (93) 98 97.5 01/17/18 21:00 Nasal Cannula 2.0 01/17/18 20:00 59 01/17/18 20:00 97.5 66 16 134/80 (98) 96 97.5 01/17/18 17:47 53 131/67 01/17/18 16:00 53 01/17/18 16:00 97.9 77 18 131/67 (88) 95 97.9 01/17/18 12:00 97.3 63 16 134/79 (97) 99 97.3 01/17/18 12:00 63 Intake and Output 01/17/18 01/18/18 19:00 07:00 Intake Total 240 ml 480 ml Output Total 175 ml Balance 65 ml 480 ml Intake Oral 240 ml 480 ml Output Other 175 ml # Voids 3 4 Laboratory Tests Test 01/18/18 05:05 White Blood Count 5.0 K/UL (4.8-10.8) Red Blood Count 4.23 M/UL (4.70-6.10) L Hemoglobin 13.1 G/DL (14.2-18.0) L Hematocrit 37.6 % (42.0-52.0) L Mean Corpuscular Volume 89 FL (80-99) Mean Corpuscular Hemoglobin 31.0 PG (27.0-31.0) Mean Corpuscular Hemoglobin Concent 34.9 G/DL (32.0-36.0) Red Cell Distribution Width 10.9 % (11.6-14.8) L Platelet Count 132 K/UL (150-450) L Mean Platelet Volume 7.2 FL (6.5-10.1) Neutrophils (%) (Auto) % (45.0-75.0) Lymphocytes (%) (Auto) % (20.0-45.0) Monocytes (%) (Auto) % (1.0-10.0) Eosinophils (%) (Auto) % (0.0-3.0) Basophils (%) (Auto) % (0.0-2.0) Differential Total Cells Counted 100 Neutrophils % (Manual) 49 % (45-75) Lymphocytes % (Manual) 36 % (20-45) Monocytes % (Manual) 10 % (1-10) Eosinophils % (Manual) 5 % (0-3) H Basophils % (Manual) 0 % (0-2) Band Neutrophils 0 % (0-8) Platelet Estimate Decreased L Platelet Morphology Normal Anisocytosis 1+ Sodium Level 145 MMOL/L (136-145) Potassium Level 3.8 MMOL/L (3.5-5.1) Chloride Level 109 MMOL/L (98-107) H Carbon Dioxide Level 25 MMOL/L (21-32) Anion Gap 11 mmol/L (5-15) Blood Urea Nitrogen 26 mg/dL (7-18) H Creatinine 1.4 MG/DL (0.55-1.30) H Estimat Glomerular Filtration Rate mL/min (>60) Glucose Level 101 MG/DL (74-106) Calcium Level 9.2 MG/DL (8.5-10.1) Microbiology Date/Time Source Procedure Growth Status 01/17/18 16:15 Indwelling Cath Urine Culture - Preliminary NO GROWTH Resulted Height (Feet): 5 Height (Inches): 5.00 Weight (Pounds): 154 Medications Current Medications Medications (Trade) Dose Ordered Sig/Angelica Route PRN Reason Start Time Stop Time Status Last Admin Dose Admin Acetaminophen (Tylenol) 650 mg Q6H PRN ORAL Mild Pain/Temp > 100.5 01/13/18 20:17 02/12/18 20:16 Acetaminophen/ Hydrocodone Bitart ([place] 5/325) 1 tab Q6H PRN ORAL PAIN 4-10 01/13/18 20:12 01/20/18 20:11 01/18/18 02:42 Amlodipine Besylate (Norvasc) 10 mg DAILY ORAL 01/14/18 09:00 02/13/18 08:59 01/18/18 08:27 Aspirin (ASA) 81 mg DAILY ORAL 01/14/18 09:00 02/13/18 08:59 01/18/18 08:27 Atorvastatin Calcium (Lipitor) 20 mg BEDTIME ORAL 01/13/18 21:00 02/12/18 20:59 01/17/18 21:13 Carvedilol (Coreg) 25 mg BID ORAL 01/14/18 09:00 02/13/18 08:59 01/18/18 08:27 Diphenhydramine HCl (Benadryl) 25 mg Q6H PRN IVP Itching 01/13/18 20:12 02/12/18 20:11 01/15/18 17:51 Finasteride (Proscar) 5 mg DAILY ORAL 01/14/18 09:00 02/13/18 08:59 01/18/18 08:27 Heparin Sodium (Porcine) (Heparin 5000 units/ml) 5,000 units EVERY 12 HOURS SUBQ 01/13/18 21:00 02/12/18 20:59 01/18/18 08:29 Isosorbide Mononitrate (Imdur) 60 mg DAILY ORAL 01/14/18 09:00 02/13/18 08:59 01/18/18 08:27 Levothyroxine Sodium (Synthroid) 25 mcg ACBREAKFAST ORAL 01/14/18 06:30 02/13/18 06:29 01/18/18 05:50 Magnesium Hydroxide (Mom) 30 ml TID PRN ORAL Constipation 01/17/18 22:15 02/16/18 22:14 01/18/18 02:42 Memantine (Namenda) 5 mg DAILY ORAL 01/14/18 09:00 02/13/18 08:59 01/18/18 08:26 Multivitamins Therapeutic (Therapeutic Multivitamin) 1 ea DAILY ORAL 01/14/18 09:00 02/13/18 08:59 01/18/18 08:26 Nitroglycerin (Ntg) 0.4 mg Q5M PRN SL Prn Chest Pain 01/13/18 20:00 02/12/18 19:59 Tamsulosin HCl (Flomax) 0.4 mg BEDTIME ORAL 01/13/18 21:00 02/12/18 20:59 01/17/18 21:13 Vancomycin HCl (Vanco rx to dose) 1 ea DAILY PRN MISC PER PHARM 01/16/18 16:30 02/15/18 16:29 Vancomycin HCl 1 gm/Dextrose 275 ml @ 183.708 mls/hr Q24H IVPB 01/16/18 18:00 01/21/18 17:59 01/17/18 17:48 Vitamin D (Vitamin D) 1,000 intlu DAILY ORAL 01/14/18 09:00 02/13/18 08:59 01/18/18 08:26 Assessment/Plan Assessment/Plan Abx: IV Vancomycin 01/16- Ceftriaxone 01/13-01/16 Assessment: Probable MRSA UTI- typically not an urinary pathogen- r/o bacteremia/ endovascular source. No ring catheter. Non obstuctive kidney stones. -Renal US: Bilateral nonobstructive nephrolithiasis. Generalized atrophy of the kidneys. Afebrile No leukocytosis -CXR: Mild CHF suspected. Correlate clinically. CVA COPD Dementia BPH DM2 CKD hypertension GERD anemia hypothyroidism diverticulosis Plan: -Continue IV Vancomycin #06/13- -upon discharge can transition to PO Bactrim if BCx neg -Bcx x2, 2d Echo -f/u cx -Monitor CBC/CMP, temperatures Thank you for this consultation. Will continue to follow along with you. Discussed with VAISHALI. Kristi Shafer M.D. Jan 18, 2018 11:35
[2018-01-18 12:00] VITALS: BP 115/61
--- NOTE | 2018-01-18 13:48 | Nephrology Progress Note ---
Assessment/Plan Plan U C+S MRSA! Renal US B Urolithiasis Urosepsis due to MRSA associated with infected stones. Needs Lithotripsy! To get Laser Rx when urine cultures are negative! NEMESIO Krishnamurthy. DC to SNF on IV Vanco. Surveillence urine C+S there. When negative F/U with . Subjective Subjective Confused! Objective Objective Last 24 Hour Vital Signs Date Time Temp Pulse Resp B/P (MAP) Pulse Ox O2 Delivery O2 Flow Rate FiO2 01/18/18 12:00 97.7 68 20 115/61 (79) 98 97.7 01/18/18 12:00 55 01/18/18 09:00 Nasal Cannula 2.0 01/18/18 08:27 150/84 01/18/18 08:27 69 150/84 01/18/18 08:27 69 150/84 01/18/18 08:00 97.6 69 20 150/84 (106) 98 97.6 01/18/18 08:00 74 01/18/18 04:00 68 01/18/18 04:00 97.3 66 18 115/80 (92) 96 97.3 01/18/18 00:00 61 01/18/18 00:00 97.5 64 18 130/75 (93) 98 97.5 01/17/18 21:00 Nasal Cannula 2.0 01/17/18 20:00 59 01/17/18 20:00 97.5 66 16 134/80 (98) 96 97.5 01/17/18 17:47 53 131/67 01/17/18 16:00 53 01/17/18 16:00 97.9 77 18 131/67 (88) 95 97.9 Intake and Output 01/17/18 01/18/18 19:00 07:00 Intake Total 240 ml 480 ml Output Total 175 ml Balance 65 ml 480 ml Intake Oral 240 ml 480 ml Output Other 175 ml # Voids 3 4 Laboratory Tests 01/18/18 05:05: White Blood Count 5.0, Red Blood Count 4.23L, Hemoglobin 13.1L, Hematocrit 37.6L , Mean Corpuscular Volume 89, Mean Corpuscular Hemoglobin 31.0, Mean Corpuscular Hemoglobin Concent 34.9, Red Cell Distribution Width 10.9L, Platelet Count 132L, Mean Platelet Volume 7.2, Neutrophils (%) (Auto) , Lymphocytes (%) (Auto) , Monocytes (%) (Auto) , Eosinophils (%) (Auto) , Basophils (%) (Auto) , Differential Total Cells Counted 100, Neutrophils % ( Manual) 49, Lymphocytes % (Manual) 36, Monocytes % (Manual) 10, Eosinophils % ( Manual) 5H, Basophils % (Manual) 0, Band Neutrophils 0, Platelet Estimate DecreasedL, Platelet Morphology Normal, Anisocytosis 1+, Sodium Level 145, Potassium Level 3.8, Chloride Level 109H, Carbon Dioxide Level 25, Anion Gap 11 , Blood Urea Nitrogen 26H, Creatinine 1.4H, Estimat Glomerular Filtration Rate , Glucose Level 101, Calcium Level 9.2 Height (Feet): 5 Height (Inches): 5.00 Weight (Pounds): 154 Objective CV RR Lungs CTA Abd SNT. BS + E B contractures Neuro confused, dysarthric. Treasure Soriano MD Jan 18, 2018 13:48
--- NOTE | 2018-01-20 08:14 | Discharge Summary ---
Discharge Summary Discharge Summary _ DATE OF ADMISSION: 01/13/2018 DATE OF DISCHARGE: 01/18/2018 REASON FOR ADMISSION: 72 years old male, resident of the assisted facility, with past medical history of organic brain syndrome, chronic kidney disease, hypothyroidism, ypertension, COPD ,CVA ,diabetes mellitus, GERD, BPH, DNR/DNI status, presented to emergency department for dizziness. Patient by himself was extremely poor historian , given history of dementia and organic brain syndrome. Patient reported associated chest pain and shortness of breath, but no palpitations. He felt the room was spinning around him. Upon evaluation vital signs were stable. Laboratory workup revealed no leukocytosis ,hemoglobin 12.9 hematocrit 36.1. BU and 41, creatinine 1.6 , consistent with known history of chronic kidney disease. Troponin was negative. EKG showed normal sinus rhythm, no acute ischemic changes. Pro BNP 478. Urinalysis revealed evidence of UTI. CT of the head revealed no acute intracranial bleeding, mass effect or edema. It demonstrated moderate atrophy of the brain and evidence of chronic small vessel disease, involving white matter tracts. Patient admitted with diagnosis of UTI, chronic kidney disease , scabies, diabetes mellitus type 2, HTN, organic brain syndrome, hypothyroidism, BPH, GERD. CONSULTANTS: ID specialist Dr. Shafer [facility] COURSE: Patient admitted to telemetry floor. Patient started on IV fluids and empiric antibiotics. Renal ultrasound revealed bilateral nonobstructive nephrolithiasis and generalized atrophy of the kidneys. Urine culture revealed MRSA. ID specialist followed. Antibiotic regimen optimized based on sensitivity. Antibiotic changed to oral upon discharge to assisted facility to complete the course of treatment as per ID specialist recommendations. Renal parameters and electrolytes were closely monitored. Electrolytes corrected as needed. Nephrotoxins were avoided. Renal parameters remained at the baseline. Serial troponin 2 were negative. EKG revealed no acute ischemic changes. Patient was ruled out for acute VT. Echocardiogram revealed ejection fraction of 60-65% with mild left ventricular hypertrophy, moderate aortic insufficiency and right ventricular systolic pressure of 21. Blood pressure was managed with calcium channel sandhya and beta sandhya , remained stable. Antiplatelet therapy with aspirin was continued. Statin and Isosorbide continued. Blood sugar was clsoely monitored, remained stable. Bedside swallow evaluation revealed evidence of dysphagia. Diet provided as per speech therapist recommendations with strict aspiration / reflux precautions. and one-to-one feeding. Chest x-ray showed no evidence of aspiration. Patient afebrile, no leukocytosis. Pulse oximetry was stable on room air. Home medications resumed. DVT prophylaxis provided. Patient was provided treatment for scabies with Elimite and ivermectin. Urosepsis was due to MRSA UTI , associated with infected stones. Patient will need lithotripsy , when urine culture negative. Surveillance urine culture to be done at the facility and when negative, to r follow-up with a urologist for further management and surgery. Patient stabilized, no further dizziness, no chest pain, hemodynamically stable. Patient with DNR/DNI status. Patient was discarded to the assisted facility. FINAL DIAGNOSES: MRSA UTI due to infected stones Bilateral urolithiasis Chronic kidney disease Dysphagia Anemia Hypertension History of CVA Diabetes mellitus type 2 BPH Dementia DISCHARGE MEDICATIONS: List of medication was sent accepting facility. DISCHARGE INSTRUCTIONS: Patient was discharged to the assisted facility. Follow up with medical doctor at the facility. Surveillance urine culture to be done at the facility and when negative, to follow-up with urologist for lithotripsy. I have been assigned to dictate discharge summary for this account. I was not involved in the patient's management. Arlen Hall NP Jan 20, 2018 08:14
--- NOTE | 2018-01-21 11:16 | Cardiology Report ---
APPROVED REPORT EXAM: Two-dimensional and M-mode echocardiogram with Doppler and color Doppler. INDICATION [employer] M-Mode DIMENSIONS IVSd1.2 (0.7-1.1cm)Left Atrium (MM)3.3 (1.6-4.0cm) LVDd4.5 (3.5-5.6cm)Aortic Root2.6 (2.0-3.7cm) PWd1.4 (0.7-1.1cm)Aortic Cusp Exc.1.1 (1.5-2.0cm) LVDs3.0 (2.5-4.0cm) PWs2.0 cm Technically difficult study due to poor acoustic windows. Study quality precludes accurate assessment of regional wall motion. Normal left ventricular chamber size, systolic function and wall motion. Left ventricular ejection fraction estimated to be 60-65 %. Mild left ventricular hypertrophy. Anterior Echo-free space, may be due to pericardial fat or effusion. All other cardiac chamber sizes are within normal limits. Aortic valve calcification with decreased cusp excursion c/w aortic stenosis. Mildly thickened mitral valve leaflets with normal excursion. Mild mitral annulus and aortic root calcification. Normal pulmonic valve structure. Normal tricuspid valve structure. IVC dilated at 2.3 cm without physiological collapse. No discrete vegitations seen. A color flow and spectral Doppler study was performed and revealed: Moderate aortic insufficiency. Peak aortic valve gradient of 28 mmHg and a mean of 16 mmHg. Aortic valve area 1.1 cm2 calculated by continuity equation. Mild mitral regurgitation. Mitral diastolic velocities suggest mild left ventricular diastolic dysfunction (Grade I). Trace tricuspid regurgitation. Tricuspid systolic velocities suggests peak right ventricular systolic pressure of 21 mmHg. Mild pulmonic regurgitation present.
== END 2018-01-18 16:00 | DRG 690 ==
LOC: EDBD 14:45 → EMR 15:15 → 2E 15:24 → EDBEDREQ 16:11 → 2E 18:50
DX: N39.0 Urinary tract infection, site not specified (principal); B95.62 Methicillin resistant Staphylococcus aureus infection as the cause of diseases classified elsewhere; N18.9 Chronic kidney disease, unspecified; I12.9 Hypertensive chronic kidney disease with stage 1 through stage 4 chronic kidney disease, or unspecified chronic kidney disease; E11.22 Type 2 diabetes mellitus with diabetic chronic kidney disease; N20.9 Urinary calculus, unspecified; R13.10 Dysphagia, unspecified; D64.9 Anemia, unspecified; Z86.73 Personal history of transient ischemic attack (TIA), and cerebral infarction without residual deficits; N40.0 Benign prostatic hyperplasia without lower urinary tract symptoms; F03.90 Unspecified dementia, unspecified severity, without behavioral disturbance, psychotic disturbance, mood disturbance, and anxiety; F09 Unspecified mental disorder due to known physiological condition; E03.9 Hypothyroidism, unspecified; Z66 Do not resuscitate; K21.9 Gastro-esophageal reflux disease without esophagitis; B86 Scabies; K57.90 Diverticulosis of intestine, part unspecified, without perforation or abscess without bleeding
CPT/HCPCS: 36415; 70450; 71045; 76770; 80048; 80053; 81003; 82550; 83880; 84443; 84484; 85007; 85025; 85610; 85651; 85730; 87040; 87081; 87086; 87181; 93005; 93306; 96374; 96375; 99285; J2765

== ENCOUNTER 2018-05-23 14:01 | Inpatient (IN) | payer MEDICARE, OTHER ==
[~2018-05-23] VITALS: Ht 167.6 cm; Wt 66.7 kg
[~2018-05-23 14:01] MED LIST changes: +ACETAMINOP160 MG/54 ORAL; +ASPIRIN81 MG ORAL; +NORCO 5-325 TA1 EACH ORAL
--- NOTE | 2018-05-23 14:05 | NUR ---
ED Nurse Note: pt brought in by MANOLO from [facility] c/o abd pain, n/v/ but no diarrhea since last night. Pt AA&ox1, gcs=15, skin warm and dry, pale &ashen, noted tachypnea, -n/v +diarrhea, abd round, distended and tender, +active BS, incontinent urine and bowel. Noted o2sat 89-92% on O2 via NC=4L/min. ERMD aware of pt's condition. NSR on surveillance system monitor, will cont monitor. VSS.
[2018-05-23] MEDS ORDERED: Morphine Sulfate 4mg/ml Inj (IV USE ONLY) IVP ONE (14:15)
[2018-05-23] MEDS ORDERED: Isovue-300 100ml vial INJ PRN (14:15)
--- NOTE | 2018-05-23 14:18 | Emergency Room Report ---
History of Present Illness General Chief Complaint: Abdominal Pain Source: EMS Present Illness HPI Patient presents with 2 days of abdominal distention and pain. He also is vomiting yesterday. The patient is unable to give further history. He's had GI problems in the past looking at his history. In the past she's had mild renal insufficiency. He was last admitted in January for chest pain. D/C dx: MRSA UTI due to infected stones Bilateral urolithiasis Chronic kidney disease Dysphagia Anemia Hypertension History of CVA Diabetes mellitus type 2 BPH Dementia Allergies: Coded Allergies: No Known Allergies (Verified , 06/04/07) Patient History Limited by: medical condition Past Medical History: see triage record, old chart reviewed Social History Narrative Henning Virgie Reviewed Nursing Documentation: PMH: Agreed; PSxH: Agreed Nursing Documentation-PMH Hx Cardiac Problems: Yes Hx Hypertension: Yes Hx COPD: Yes - Pneumonia Hx Diabetes: Yes Hx Cancer: No Hx Gastrointestinal Problems: Yes Hx Neurological Problems: Yes Hx Cerebrovascular Accident: Yes Review of Systems All Other Systems: limited Physical Exam Vital Signs Date Time Temp Pulse Resp B/P (MAP) Pulse Ox O2 Delivery O2 Flow Rate FiO2 05/23/18 13:53 98.4 90 16 122/81 85 Nasal Cannula 3.0 Sp02 EP Interpretation: reviewed, abnormal - Interpreted as low by me General Appearance: other - not respond to verbal commnands or stimulus, Chronically Ill Head: normocephalic Eyes: bilateral eye PERRL, bilateral eye conjunctivae pale ENT: moist mucus membranes Neck: supple Respiratory: no respiratory distress, no retraction, no accessory muscle use, rales - Faint anteriorly Cardiovascular #1: regular rate, rhythm Cardiovascular #2: 2+ radial (R) Gastrointestinal: no rebound, distended, guarding, tenderness Rectal: heme negative stool Musculoskeletal: back normal, no calf tenderness Neurologic: responsive - minimally, grimmaces with abd exam, motor weakness - diffuse Psychiatric: depressed affect Skin: pallor, other - sallow Medical Decision Making Diagnostic Impression: Primary Impression: Right lower lobe pneumonia Qualified Codes: J18.1 - Lobar pneumonia, unspecified organism Additional Impressions: UTI (urinary tract infection) Qualified Codes: N39.0 - Urinary tract infection, site not specified Acute renal failure Qualified Codes: N17.9 - Acute kidney failure, unspecified Abdominal pain Qualified Codes: R10.84 - Generalized abdominal pain ER Course Patient presents with abdominal pain and distention. Differential includes small bowel obstruction, gastroenteritis, diverticulitis, gastritis, pancreatitis, gallbladder disease amongst others. He will be evaluated with EKG , chest x-ray and CT of abdomen and pelvis with contrast and labs. The patient will be treated with IV hydration and analgesia. EKG without injury. Chest x-ray with right lower lobe infiltrate Rectal temp is 101. Tylenol is given and also antibiotics are begun. Due to the smell of the stool cefepime and metronidazole are ordered. Consideration for coverage with Levaquin as the patient has a right lower lobe infiltrate. Labs with elevated lactate and worsened renal failure. CT as below. Sepsis re-evaluation - more alert (still not answer), not hypotensive and HR better 16:21. Based on CT and exam, not surgical abdomen. Admit med Dr. Soriano. Laboratory Tests Test 05/23/18 14:30 05/23/18 15:20 05/23/18 16:20 05/24/18 06:57 White Blood Count 8.2 K/UL (4.8-10.8) 7.7 K/UL (4.8-10.8) Red Blood Count 4.70 M/UL (4.70-6.10) 4.05 M/UL (4.70-6.10) L Hemoglobin 14.1 G/DL (14.2-18.0) L 12.5 G/DL (14.2-18.0) L Hematocrit 42.1 % (42.0-52.0) 36.6 % (42.0-52.0) L Mean Corpuscular Volume 90 FL (80-99) 91 FL (80-99) Mean Corpuscular Hemoglobin 30.0 PG (27.0-31.0) 30.9 PG (27.0-31.0) Mean Corpuscular Hemoglobin Concent 33.4 G/DL (32.0-36.0) 34.1 G/DL (32.0-36.0) Red Cell Distribution Width 11.4 % (11.6-14.8) L 11.5 % (11.6-14.8) L Platelet Count 141 K/UL (150-450) L 110 K/UL (150-450) L Mean Platelet Volume 6.7 FL (6.5-10.1) 7.3 FL (6.5-10.1) Neutrophils (%) (Auto) % (45.0-75.0) % (45.0-75.0) Lymphocytes (%) (Auto) % (20.0-45.0) % (20.0-45.0) Monocytes (%) (Auto) % (1.0-10.0) % (1.0-10.0) Eosinophils (%) (Auto) % (0.0-3.0) % (0.0-3.0) Basophils (%) (Auto) % (0.0-2.0) % (0.0-2.0) Differential Total Cells Counted 100 100 Neutrophils % (Manual) 45 % (45-75) 59 % (45-75) Lymphocytes % (Manual) 24 % (20-45) 16 % (20-45) L Monocytes % (Manual) 4 % (1-10) 6 % (1-10) Eosinophils % (Manual) 0 % (0-3) 0 % (0-3) Basophils % (Manual) 0 % (0-2) 0 % (0-2) Metamyelocytes % 3 % (0-0) H 9 % (0-0) H Band Neutrophils 24 % (0-8) H 10 % (0-8) H Platelet Estimate Decreased L Decreased L Platelet Morphology Normal Normal Red Blood Cell Morphology Normal Prothrombin Time 12.1 SEC (9.30-11.50) H Prothrombin Time INR 1.2 (0.9-1.1) H PTT 26 SEC (23-33) Sodium Level 141 MMOL/L (136-145) 143 MMOL/L (136-145) Potassium Level 3.9 MMOL/L (3.5-5.1) 4.3 MMOL/L (3.5-5.1) Chloride Level 106 MMOL/L (98-107) 109 MMOL/L (98-107) H Carbon Dioxide Level 20 MMOL/L (21-32) L 23 MMOL/L (21-32) Anion Gap 15 mmol/L (5-15) 12 mmol/L (5-15) Blood Urea Nitrogen 36 mg/dL (7-18) H 45 mg/dL (7-18) H Creatinine 2.3 MG/DL (0.55-1.30) H 2.2 MG/DL (0.55-1.30) H Estimate Glomerular Filtration Rate mL/min (>60) mL/min (>60) Glucose Level 241 MG/DL (74-106) H 160 MG/DL (74-106) H Lactic Acid Level 4.90 mmol/L (0.4-2.0) H 1.90 mmol/L (0.66-2.22) Calcium Level 9.3 MG/DL (8.5-10.1) 8.3 MG/DL (8.5-10.1) L Total Bilirubin 1.1 MG/DL (0.2-1.0) H Direct Bilirubin 0.2 MG/DL (0.0-0.3) Aspartate Amino Transferase (AST) 25 U/L (15-37) Alanine Aminotransferase (ALT) 25 U/L (12-78) Alkaline Phosphatase 62 U/L (46-116) Ammonia 15 umol/L (11-32) Total Creatine Kinase 205 U/L (26-308) Troponin I 0.021 ng/mL (0.000-0.056) Total Protein 7.4 G/DL (6.4-8.2) Albumin 3.0 G/DL (3.4-5.0) L Globulin 4.4 g/dL Albumin/Globulin Ratio 0.7 (1.0-2.7) L Lipase 146 U/L (73-393) Urine Color Yellow Urine Appearance Clear Urine pH 5 (4.5-8.0) Urine Specific [place] 1.015 (1.005-1.035) Urine Protein 3+ (NEGATIVE) H Urine Glucose (UA) Negative (NEGATIVE) Urine Ketones 1+ (NEGATIVE) H Urine Blood 2+ (NEGATIVE) H Urine Nitrite Negative (NEGATIVE) Urine Bilirubin Negative (NEGATIVE) Urine Urobilinogen Normal MG/DL (0.0-1.0) Urine Leukocyte Esterase 2+ (NEGATIVE) H Urine RBC 2-4 /HPF (0 - 0) H Urine WBC 10-15 /HPF (0 - 0) H Urine Squamous Epithelial Cells None /LPF (NONE/OCC) Urine Bacteria Moderate /HPF (NONE) H Magnesium Level 1.5 MG/DL (1.8-2.4) L Microbiology Date/Time Source Procedure Growth Status 05/23/18 15:20 Stool Clostridium difficile Toxin Assay - Final Complete EKG Diagnostic Results Rate: normal Rhythm: NSR ST Segments: no acute changes Rhythm Strip Diag. Results EP Interpretation: yes Rhythm: NSR, no PVC's, no ectopy Chest X-Ray Diagnostic Results Chest X-Ray Diagnostic Results : Chest X-Ray Ordered: Yes # of Views/Limited/Complete: 1 View Indication: Other EP Interpretation: Yes Interpretation: no pneumothorax, other - Right lower lobe infiltrate and possible effusion Impression: Other Electronically Signed by: Electronically signed by Roberto Gorman MD CT/MRI/US Diagnostic Results CT/MRI/US Diagnostic Results : Imaging Test Ordered: abdomen/pelvis Impression Impression: Evidence of complete consolidation of the right lower lobe, corresponding to hazy opacity demonstrated on recent chest radiograph. This most likely represents pneumonia. The possibility of underlying mass lesion should also be considered Mildly dilated gas-filled proximal small bowel loops, with gradual tapering to normal caliber or collapsed distal small bowel. This may represent mild ileus or enteritis changes. Could also be baseline for this patient, given similar findings on prior study While unlikely, the possibility No definite acute abdominal or pelvic abnormality otherwise Colonic diverticulosis. No evidence of diverticulitis Mildly thick-walled bladder with a small diverticulum. Probably on the basis of chronic bladder outlet obstruction. The possibility of cystitis should also be considered Prostatomegaly which is actually diminished from previous exam of 2010 Cardiomegaly, mild Possible early decubitus changes of the right buttock region subcutaneous fat. Clinical findings Other findings as noted, including left lower lobe atelectatic changes, minimal degenerative changes of the right hip, prior cholecystectomy, small sliding- type hiatal hernia Last Vital Signs Date Time Temp Pulse Resp B/P (MAP) Pulse Ox O2 Delivery O2 Flow Rate FiO2 05/24/18 09:00 Nasal Cannula 4.0 05/24/18 08:00 90 05/24/18 08:00 98.2 20 126/79 (95) 94 05/24/18 07:59 21 Status: improved Disposition: ADMITTED INPATIENT Condition: Serious Roberto Gorman MD May 23, 2018 14:18
--- NOTE | 2018-05-23 14:30 | NUR ---
ED Nurse Note: ERMD notified regarding pt's temp. rectal temp 101F, +diarrhea. PT cleaned and stool culture sent.
[2018-05-23 14:57] LABS: HEMATOCRIT 42.1 % (42.0-52.0); HEMOGLOBIN 14.1 G/DL (14.2-18.0); MEAN CORPUSCULAR VOLUME 90 FL (80-99); PLATELET COUNT 141 K/UL (150-450); RED CELL DISTRIBUTION WIDTH 11.4 % (11.6-14.8); WHITE BLOOD COUNT 8.2 K/UL (4.8-10.8)
[2018-05-23 15:00] VITALS: BP 122/78
[2018-05-23] MEDS ORDERED: LACTULOSE20 GM/301 ORAL (15:04)
[2018-05-23] MEDS ORDERED: NAMENDA5 MG ORAL (15:04)
[2018-05-23] MEDS ORDERED: PROSCAR5 MG ORAL (15:04)
[2018-05-23 15:06] LABS: INR 1.2 (0.9-1.1)
[2018-05-23 15:11] LABS: ANION GAP 15 mmol/L (5-15); BLOOD UREA NITROGEN 36 mg/dL (7-18); CALCIUM 9.3 MG/DL (8.5-10.1); CARBON DIOXIDE 20 MMOL/L (21-32); CHLORIDE 106 MMOL/L (98-107); CREATININE 2.3 MG/DL (0.55-1.30); POTASSIUM 3.9 MMOL/L (3.5-5.1); SODIUM 141 MMOL/L (136-145)
[2018-05-23 15:13] LABS: AMMONIA 15 umol/L (11-32)
[2018-05-23] MEDS ORDERED: Acetaminophen 650 MG SUPP RECTAL ONE (15:15)
[2018-05-23] MEDS ORDERED: Cefepime HCl 1 GM in D5W 55 ML IVPB ONE (15:15)
[2018-05-23 15:26] LABS: ALANINE AMINOTRANSFERASE 25 U/L (12-78); ALBUMIN/GLOBULIN RATIO 0.7 (1.0-2.7); ALKALINE PHOSPHATASE 62 U/L (46-116); ASPARTATE AMINO TRANSFERASE 25 U/L (15-37); BILIRUBIN,TOTAL 1.1 MG/DL (0.2-1.0); CREATINE KINASE 205 U/L (26-308)
[2018-05-23 15:27] LABS: BILIRUBIN,DIRECT 0.2 MG/DL (0.0-0.3)
--- NOTE | 2018-05-23 15:39 | NUR ---
ED Nurse Note: ERMD notified regarding critical lab value lactic per Corina TOM.
[2018-05-23 15:56] LABS: APPEARANCE,URINE CLEAR; BILIRUBIN, URINE NEGATIVE (NEGATIVE); GLUCOSE, URINE (UA) NEGATIVE (NEGATIVE); KETONES,URINE 1+ (NEGATIVE); LEUKOCYTE ESTERASE ,URINE 2+ (NEGATIVE); NITRITE,URINE NEGATIVE (NEGATIVE); PH,URINE 5 (4.5-8.0); PROTEIN,URINE 3+ (NEGATIVE); UROBILINOGEN,URINE NORMAL MG/DL (0.0-1.0)
[2018-05-23 15:57] LABS: COLOR,URINE YELLOW
[2018-05-23 16:00] VITALS: BP 126/70
--- NOTE | 2018-05-23 16:39 | Diagnostic Imaging Report ---
Indication: Chest pain Technique: One view of the chest Comparison: 01/13/2018 Findings: Hazy opacity right at the lung base may reflect some infiltrate or some pleural fluid.. There may be some pleural fluid on the left as well. The heart remains enlarged. Previously demonstrated generalized interstitial congestion is not evident currently.. Impression: Cardiomegaly Right basilar hazy opacity-pleural fluid and/or infiltrate. Possible left-sided pleural effusion
--- NOTE | 2018-05-23 16:40 | NUR ---
ED Nurse Note: pt off to CT.
[2018-05-23 17:00] VITALS: BP 129/78
--- NOTE | 2018-05-23 17:25 | Diagnostic Imaging Report ---
Indication: Abdominal pain and distention for 2 days, vomiting yesterday Technique: Spiral acquisitions obtained through the abdomen and pelvis. Patient ingested and limited amount of oral contrast. No IV contrast utilized, per referring physician request.. Multiplanar reconstructions were generated. Total dose length product 860 mGycm. CTDIvol(s) 13 mGy. Dose reduction achieved using automated exposure control Comparison: 08/02/2010 Findings: The appendix is not definitely visualized, but there are no findings to suggest acute appendicitis. There is colonic diverticulosis. No evidence of acute diverticulitis. Contrast has traversed only through the proximal portion of the small bowel. Some proximal small bowel loops are mildly dilated, but transition to nondistended distal small bowel is tapered, and there are also some intervening areas of nondilated small bowel within the areas of mild dilatation. Note that similar findings were evident on the previous study. No small bowel wall thickening. No free or loculated intraperitoneal gas or fluid. The distal esophagus demonstrates a small sliding-type hiatal hernia. Stomach and duodenum are unremarkable. Lack of IV contrast limits assessment of the solid organs. The gallbladder is not visualized, although no surgical clips are evident. This finding was also demonstrated previously. No biliary ductal dilatation. The liver is grossly unremarkable. The pancreas, spleen, adrenals are unremarkable. Note that the previously demonstrated splenomegaly has resolved. The kidneys are unremarkable. No renal or ureteral calculi, hydronephrosis, or hydroureter demonstrated. There is minimal wall thickening of the bladder, although this is less striking than on the prior exam. There is a tiny anterior bladder wall diverticulum, that was not evident previously. The prostate is enlarged, but less so than on the prior exam, currently measuring 4.5 cm transverse, previously 5.2. No pelvic mass or adenopathy. There is suggestion of some decubitus changes in the right buttock region subcutaneous fat, minimal. The bones demonstrate minimal degenerative changes of the right hip. Mild degenerative spondylosis changes are noted. The included lung bases demonstrate some pleural calcifications on the right. There is dense consolidation of the entire visualized right lower lobe. There are atelectatic changes of the left lower lobe. The heart is mildly enlarged. Impression: Evidence of complete consolidation of the right lower lobe, corresponding to hazy opacity demonstrated on recent chest radiograph. This most likely represents pneumonia. The possibility of underlying mass lesion should also be considered Mildly dilated gas-filled proximal small bowel loops, with gradual tapering to normal caliber or collapsed distal small bowel. This may represent mild ileus or enteritis changes. Could also be baseline for this patient, given similar findings on prior study While unlikely, the possibility No definite acute abdominal or pelvic abnormality otherwise Colonic diverticulosis. No evidence of diverticulitis Mildly thick-walled bladder with a small diverticulum. Probably on the basis of chronic bladder outlet obstruction. The possibility of cystitis should also be considered Prostatomegaly which is actually diminished from previous exam of 2010 Cardiomegaly, mild Possible early decubitus changes of the right buttock region subcutaneous fat.: Clinical findings Other findings as noted, including left lower lobe atelectatic changes, minimal degenerative changes of the right hip, prior cholecystectomy, small sliding-type hiatal hernia The CT scanner at [facility] is accredited by the [employer] and the scans are performed using protocols designed to limit radiation exposure to as low as reasonably achievable to attain images of sufficient resolution adequate for diagnostic evaluation.
--- NOTE | 2018-05-23 17:30 | NUR ---
ED Nurse Note: report given to graham Reed currently cleaning at this time, per Rob statement, can send pt in 15 min.
--- NOTE | 2018-05-23 17:43 | NUR ---
CASE MANAGEMENT: INITIAL REVIEW 05/23/2018 72 YO M EVANS FROM [facility] CC: ABD PAIN PMHx: ANEMIA. HTN. CVA. DM2. BPH. DEMENTIA. SI:ABD PAIN. HYPOXIA. T 98.4 HR 90 RR 16 B/P 122/81 SATS 85% ON 3L/NC CO2 20 BUN 36 CR 2.3 GLU 241 LACT 4.9 TBILI 1.1 IS: ZOFRAN IV X1 PEPCID IV X1 MORPHINE IV X1 NS BOLUS X1 CT ABD/PELVIS (Impression: Evidence of complete consolidation of the right lower lobe, corresponding to hazy opacity demonstrated on recent chest radiograph. This most likely represents pneumonia. The possibility of underlying mass lesion should also be considered Mildly dilated gas-filled proximal small bowel loops, with gradual tapering to normal caliber or collapsed distal small bowel. This may represent mild ileus or enteritis changes. Could also be baseline for this patient, given similar findings on prior study While unlikely, the possibility. No definite acute abdominal or pelvic abnormality otherwise) PATIENT ADMITTED TO TELE 05/23/2018 @ 1505 DCP: PATIENT TO BE DISCHARGED TO SNF ONCE MEDICALLY CLEARED. PLAN OF CARE: GI EVAL Addendum: 05/25/18 at 0807 by Mar Mcdowell CM INTERQUAL MET FOR ACUTE
--- NOTE | 2018-05-23 17:55 | NUR ---
ED Nurse Note: pt sent to tele, all belongings sent with pt, pt vss, airway intact, O2 via NC = 4L/min.
--- NOTE | 2018-05-23 18:00 | NUR ---
NURSE NOTES: Patient arrived on unit at 18:00 from ER. Report received from Karrie TOM. Belongings checklist is done. Patient is AAO x1 to name. Patient is drowsy. Patient is on 4L NC. IV site is intact and patent. Scabs on right arm and redness noted on medial sacral area after cleaning patient. Patient is on heart monitor SR 78. Abdomen is distended. Patient is incontinent. No edema noted. Dr. Clifton saw patient and orders were entered. Addendum: 05/23/18 at 2010 by Rob Valdovinos RN vital signs are 97.5, 83, 16, 108/69, and 95% on 4L NC.
[2018-05-23] MEDS ORDERED: Albuterol/Ipratropium 3ml neb HHN PRN (18:15)
--- NOTE | 2018-05-23 19:20 | NUR ---
NURSE NOTES: Received report from Nya Valdovinos RN. Pt is sleeping in the bed w/o distress in RA, easily arousable by voice stimuli. Safety measures are applied w/ bed alarm on, bed in lowest position w/ side rails up x2, and breaks are engaged. Call light and side table are w/in reach. SR in the monitor. Will follow plans of care.
--- NOTE | 2018-05-23 19:30 | NUR ---
HAND-OFF: Report given to Nely Osei RN.
[2018-05-23 20:00] VITALS: BP 115/69
--- NOTE | 2018-05-23 20:30 | History and Physical Report ---
DATE OF ADMISSION: 05/23/2018 CHIEF COMPLAINT: Altered level of consciousness and abdominal pain. HISTORY OF PRESENT ILLNESS: This is a 72-year-old male from [facility]. I was called about the patient complaining of abdominal pain. He was sent to the ER. The patient is demented and unable to give any further information. PAST MEDICAL HISTORY: 1. Organic brain syndrome. 2. Chronic kidney disease. 3. Status post CVA. 4. Type 2 diabetes mellitus. 5. Obstructive uropathy. 6. Hypothyroidism. HOME MEDICATIONS: Amlodipine, baby aspirin, atorvastatin, carvedilol, Proscar, isosorbide, lactulose, Synthroid, Namenda, multivitamin, tamsulosin, and vitamin D3. ALLERGIES: No known allergies. FAMILY HISTORY: Unable to obtain due to mental status. SOCIAL HISTORY: Unable to obtain due to mental status. REVIEW OF SYSTEMS: Unable to obtain due to mental status. PHYSICAL EXAMINATION: GENERAL: This is an elderly pale male, who is in no acute distress. VITAL SIGNS: Blood pressure 122/78, pulse 90 and regular, respirations 20, and temperature 101 rectal. HEENT: Normocephalic and atraumatic. Pupils are equal, round, and reactive to light and accommodation consensually. NECK: Supple. Trachea midline. There was no lymphadenopathy or thyromegaly. LUNGS: Clear to auscultation and percussion. HEART: Regular rate and rhythm without rubs, murmurs, or gallops. ABDOMEN: Soft and distended. Bowel sounds were hyperactive. EXTREMITIES: He has contractures. No clubbing, cyanosis, or edema. NEUROLOGICAL: He is confused. There were no any gross focal findings. He has multiple contractures. LABORATORY AND ANCILLARY DATA: CBC within normal limits. Chemistry, electrolytes within normal limits. BUN 36, creatinine 2.3, glucose 241, albumin 3, and lactic acid level 4.9 initially and then 1.9. IMAGING STUDIES: CAT scan of the abdomen and pelvis, a complete consolidation of the right lower lobe, representing pneumonia. The abdomen shows findings compatible with colitis or enteritis. ASSESSMENT: 1. Pneumonia. 2. Suspected colitis. 3. Volume depletion. 4. Cardiac problems in past medical history. PLAN: 1. IV antibiotics. 2. IV fluids. Treasure Soriano M.D. DR: BARRERA JOB#: [id number] CC:
[2018-05-23] MEDS: 1/2NS w/KCl 20mEq 1000ml 1,000 ML IV SCH (20:36)
[2018-05-23] MEDS: Heparin 5000 units/ml inj SUBQ SCH (20:36)
[2018-05-23] MEDS: Docusate 100mg cap ORAL SCH ×2 (20:36→21:00)
[2018-05-23] MEDS: cefTRIAXone 1 GM in D5W 55 ML IVPB SCH (22:09)
[2018-05-24] VITALS: BP 105/64
[2018-05-24 04:00] VITALS: BP 108/67
--- NOTE | 2018-05-24 07:20 | NUR ---
NURSE NOTES: Received report from Nely Nunez RN. Pt is awake in bed w/o distress on 2L NC. Safety measures are applied w/ bed alarm on, bed in lowest position w/ side rails up x2, and breaks are on. Call light and side table are w/in reach. SR in the monitor. Will follow plans of care.
--- NOTE | 2018-05-24 07:20 | NUR ---
HAND-OFF: Report given to Nya Valdovinos RN. Stable condition. Endorsed that pt had 1 loose stool. Cleaned and dried, repositioned.
[2018-05-24 07:49] LABS: ANION GAP 12 mmol/L (5-15); BLOOD UREA NITROGEN 45 mg/dL (7-18); CALCIUM 8.3 MG/DL (8.5-10.1); CARBON DIOXIDE 23 MMOL/L (21-32); CHLORIDE 109 MMOL/L (98-107); CREATININE 2.2 MG/DL (0.55-1.30); POTASSIUM 4.3 MMOL/L (3.5-5.1); SODIUM 143 MMOL/L (136-145)
[2018-05-24 08:00] VITALS: BP 126/79
[2018-05-24 08:03] LABS: HEMATOCRIT 36.6 % (42.0-52.0); HEMOGLOBIN 12.5 G/DL (14.2-18.0); MEAN CORPUSCULAR VOLUME 91 FL (80-99); PLATELET COUNT 110 K/UL (150-450); RED BLOOD COUNT 4.05 M/UL (4.70-6.10); RED CELL DISTRIBUTION WIDTH 11.5 % (11.6-14.8); WHITE BLOOD COUNT 7.7 K/UL (4.8-10.8)
[2018-05-24] MEDS: Docusate 100mg cap ORAL SCH ×3 (09:00→21:00)
[2018-05-24] MEDS: Heparin 5000 units/ml inj SUBQ SCH ×2 (09:00→21:00)
[2018-05-24] MEDS: 1/2NS w/KCl 20mEq 1000ml 1,000 ML IV SCH ×2 (09:10→22:37)
[2018-05-24 12:00] VITALS: BP 114/71
--- NOTE | 2018-05-24 12:07 | NUR ---
NURSE NOTES: Spoke to Dr. Clifton about patient unable to tolerate diet. Patient exhibit signs of choking on thicken water and spitting it out. Received order for NPO and speech eval.
--- NOTE | 2018-05-24 15:13 | Cardiology Report ---
APPROVED REPORT EKG Measurement Heart [id number] ID [id number] Normal sinus rhythm Normal ECG
[2018-05-24] MEDS ORDERED: Tubing IV Secondary IV ONE (15:20)
--- NOTE | 2018-05-24 15:25 | General Progress Note ---
Assessment/Plan Assessment/Plan Pneumonia - IV Abx Dysphagia - needs swallow eval. CKD -IVF. Subjective Allergies: Coded Allergies: No Known Allergies (Verified , 06/04/07) Subjective Not tolerating diet. More alert. Objective Last 24 Hour Vital Signs Date Time Temp Pulse Resp B/P (MAP) Pulse Ox O2 Delivery O2 Flow Rate FiO2 05/24/18 12:00 97.7 92 20 114/71 (85) 95 05/24/18 09:00 Nasal Cannula 4.0 05/24/18 08:00 90 05/24/18 08:00 98.2 91 20 126/79 (95) 94 05/24/18 07:59 72 16 Room Air 21 05/24/18 04:00 97.5 88 18 108/67 (81) 96 05/24/18 03:55 88 05/24/18 00:00 97.2 60 20 105/64 (78) 95 05/23/18 23:48 83 05/23/18 21:00 Nasal Cannula 4.0 05/23/18 20:35 78 18 Room Air 21 05/23/18 20:13 Nasal Cannula 4.0 05/23/18 20:00 97.0 82 20 115/69 (84) 95 05/23/18 19:02 79 05/23/18 17:30 100.0 90 16 129/78 92 Nasal Cannula 4.0 05/23/18 17:00 99.9 89 22 129/78 94 Nasal Cannula 4.0 05/23/18 16:00 94 22 126/70 92 Nasal Cannula 4.0 Intake and Output 05/23/18 05/24/18 19:00 07:00 Intake Total 2055 ml 530 ml Balance 2055 ml 530 ml Intake IV Total 2055 ml 530 ml # Voids 2 # Bowel Movements 2 Laboratory Tests 05/23/18 16:20: Lactic Acid Level 1.90 05/24/18 06:57: White Blood Count 7.7, Red Blood Count 4.05L, Hemoglobin 12.5L, Hematocrit 36.6L , Mean Corpuscular Volume 91, Mean Corpuscular Hemoglobin 30.9, Mean Corpuscular Hemoglobin Concent 34.1, Red Cell Distribution Width 11.5L, Platelet Count 110L, Mean Platelet Volume 7.3, Neutrophils (%) (Auto) , Lymphocytes (%) (Auto) , Monocytes (%) (Auto) , Eosinophils (%) (Auto) , Basophils (%) (Auto) , Differential Total Cells Counted 100, Neutrophils % ( Manual) 59, Lymphocytes % (Manual) 16L, Monocytes % (Manual) 6, Eosinophils % ( Manual) 0, Basophils % (Manual) 0, Metamyelocytes % 9H, Band Neutrophils 10H, Platelet Estimate DecreasedL, Platelet Morphology Normal, Sodium Level 143, Potassium Level 4.3, Chloride Level 109H, Carbon Dioxide Level 23, Anion Gap 12 , Blood Urea Nitrogen 45H, Creatinine 2.2H, Estimat Glomerular Filtration Rate , Glucose Level 160H, Calcium Level 8.3L, Magnesium Level 1.5L Height (Feet): 5 Height (Inches): 8.00 Weight (Pounds): 180 Objective CV RR Lungs B Ronchi Abd SNT. BS + E No CCE Treasure Soriano MD May 24, 2018 15:25
--- NOTE | 2018-05-24 15:31 | NUR ---
ST NOTE: BEDSIDE SWALLOW EVAL RECEIVED BEDSIDE SWALLOW EVAL ORDER CHART REVIEWED PRIOR THE EVALUATION PT IS A 72-YEAR-OLD MALE WHO WAS ADMITTED DUE TO ABDOMINAL PAIN AND HYPOXIA DYSPHAGIA RISK FACTORS: R-SIDED PNA, ORGANIC BRAIN SYNDROME, DEMENTIA, S/P CVA(R-SIDED FACIAL WEAKNESS), DMII, COPD, HTN, CARDIAC DISORDER, GERD, HYPOTHYROIDISM. PER BEDSIDE SWALLOW EVAL ON 01/24/18: MILD OR WORSENED OROPHARYNGEAL DYSPHAGIA PT WAS ON RENAL MECH SOFT(GROUND) WITH NECTAR THICK LIQUID DIET. UNABLE TO COMPLETE VIDEOSWALLOW STUDY AT THAT TIME. CURRENT STATUS: PT SEEN AT BEDSIDE IN PM. ALERT WITH CUES, DECREASED ABILITY IN FOLLOWING DIRECTIONS, PT WITH NC(4L).OXYGEN LEVEL: 94%. GIVEN PO TRIALS: THIN(TSP), NECTAR THICK(TSP) AND PUREE(TSP) INITIAL IMPRESSION: PROBABLE PERSISTENT MILD TO MODERATE OR WORSENED DYSPHAGIA MILD INCREASE ORAL TRANSIT TIME AND OROPHARYNGEAL TRANSIT TIME FAIR LARYNGEAL ELEVATION, NO OVERT S/S OF ASPIRATION. DUE TO PT HAS H/O CVA AND CURRENT R-SIDED PNA, PT HAS HIGH RISK FOR (SILENT) ASPIRATION. RECOMMENDATIONS: 1. PO SHOULD BE GIVEN FOR QUALITY OF LIFE, SLOWLY INITIATE CCHO(MEDIUM) LIQUIFIED PUREED, LIKE NECTAR THICK SOUP CONSISTENCY WITH NECTAR THICK LIQUIDS WHEN CLEAR AND OKAY BY MD. 2. STRICT ASPIRATION/REFLUX PRECAUTIONS WITH 1TO1 FEEDING 3. VIDEOSWALLOW STUDY D/W MONIK TOM AND PT. POSTED ASPIRATION/REFLUX PRECAUTIONS SIGN
[2018-05-24 16:00] VITALS: BP 113/73
--- NOTE | 2018-05-24 16:00 | NUR ---
NURSE NOTES: Speech pathologist saw patient. Endorse findings to Dr. Clifton and orders entered. In addition, clarified POLST form of patient. Dr. Clifton states to disregard the document and the patient is FULL CODE.
[2018-05-24 20:00] VITALS: BP 132/74
--- NOTE | 2018-05-24 20:51 | NUR ---
HAND-OFF: Report given to VAISHALI Sweeney.
--- NOTE | 2018-05-24 20:52 | NUR ---
NURSE NOTES: Received pt from Rob TOM. Pt awake, alert, and sob at rest. NC on. Saturation in high 80s. Bed in lowest position. Call light within reach. Day nurse endorsed that he will call pharmacy to retime Mag. Will continue to monitor.
[2018-05-24] MEDS: cefTRIAXone 1 GM in D5W 55 ML IVPB SCH (22:38)
--- NOTE | 2018-05-24 23:44 | NUR ---
NURSE NOTES: Pts saturation has been fluctuating between 88 and 90 on 6L NC since change of shift. Bed in lowest position at high fowlers. Venturi mask now applied and pt saturating at 91%. Bed alarm on. Will continue to monitor.
[2018-05-25 04:00] VITALS: BP 111/60
--- NOTE | 2018-05-25 07:32 | NUR ---
7HAND-OFF: Report given to VAISHALI Abad. Pt stable.
--- NOTE | 2018-05-25 07:58 | NUR ---
NURSE NOTES: Pt sleeping w/ venturi mask on 6L O2. Pt is stable, SR during night. L AC IV 20g w 75ml Ns running, 1/2 ns w/20 meq kcl
[2018-05-25 08:00] VITALS: BP 116/62
[2018-05-25] MEDS: Heparin 5000 units/ml inj SUBQ SCH ×2 (09:17→20:44)
[2018-05-25] MEDS: Docusate 100mg cap ORAL SCH ×2 (09:17→20:43)
--- NOTE | 2018-05-25 11:43 | General Progress Note ---
Assessment/Plan Assessment/Plan Pneumonia - IV Abx Dysphagia - needs swallow eval. CKD -IVF. Subjective Allergies: Coded Allergies: No Known Allergies (Verified , 06/04/07) Subjective Not tolerating diet. More alert. Objective Last 24 Hour Vital Signs Date Time Temp Pulse Resp B/P (MAP) Pulse Ox O2 Delivery O2 Flow Rate FiO2 05/25/18 09:00 Venturi Mask 6.0 05/25/18 08:20 78 18 Room Air 21 05/25/18 08:06 68 05/25/18 08:00 98.0 77 18 116/62 (80) 95 05/25/18 04:00 79 05/25/18 04:00 98.2 73 20 111/60 (77) 93 05/25/18 00:00 83 05/24/18 21:00 Venturi Mask 6.0 05/24/18 20:20 86 18 Room Air 21 05/24/18 20:00 91 05/24/18 20:00 97.9 89 20 132/74 (93) 96 05/24/18 16:02 93 05/24/18 16:00 98.2 93 20 113/73 (86) 94 05/24/18 12:00 97.7 92 20 114/71 (85) 95 05/24/18 11:43 92 Intake and Output 05/24/18 05/25/18 18:59 06:59 # Voids 1 # Bowel Movements 1 1 Height (Feet): 5 Height (Inches): 8.00 Weight (Pounds): 180 Objective CV RR Lungs B Nadya Bridges SNT. BS + E No CCE Treasure Soriano MD May 25, 2018 11:43
[2018-05-25 12:00] VITALS: BP 121/66
[2018-05-25] MEDS: 1/2NS w/KCl 20mEq 1000ml 1,000 ML IV SCH (13:42)
[2018-05-25 16:00] VITALS: BP 119/70
--- NOTE | 2018-05-25 19:35 | NUR ---
HAND-OFF: Report given to margi jaquez.
--- NOTE | 2018-05-25 19:36 | NUR ---
NURSE NOTES: Got report from Jenniffer TOM. Pt in stable condition. Denies any pain. No s/s of distress or discomfort noted. Pt resting in bed comfortably. Call light within reach, bedside table within, bed in low and locked position. Continue to monitor.
[2018-05-25 20:00] VITALS: BP 120/75
[2018-05-25] MEDS: cefTRIAXone 1 GM in D5W 55 ML IVPB SCH (20:45)
[2018-05-26] VITALS: BP 139/75
[2018-05-26] MEDS: 1/2NS w/KCl 20mEq 1000ml 1,000 ML IV SCH ×2 (00:50→13:32)
[2018-05-26 04:00] VITALS: BP 134/77
--- NOTE | 2018-05-26 07:29 | NUR ---
HAND-OFF: Report given to Christianne Enrique. endorsed plan of care.
--- NOTE | 2018-05-26 07:30 | NUR ---
NURSE NOTES: Received report from VAISHALI Vargas. Patient is resting in bed, sleeping. Breathing even and non labored on 6 lit venturi mask. No signs and symptoms of acute distress at this time. Bed in lowest position with two side rails up. Call light and bed side table within reach. Bed alarm on. Will continue to monitor and follow plan of care.
[2018-05-26 08:00] VITALS: BP 142/88
[2018-05-26] MEDS: Docusate 100mg cap ORAL SCH ×2 (08:39→20:30)
[2018-05-26] MEDS: Heparin 5000 units/ml inj SUBQ SCH ×2 (08:40→20:30)
[2018-05-26 12:00] VITALS: BP 130/79
--- NOTE | 2018-05-26 12:58 | General Progress Note ---
Assessment/Plan Assessment/Plan Pneumonia - IV Abx Dysphagia - needs swallow eval. CKD -IVF. U C+S Serratia - ID to advise. Subjective Allergies: Coded Allergies: No Known Allergies (Verified , 06/04/07) Subjective Not tolerating diet. More alert. Objective Last 24 Hour Vital Signs Date Time Temp Pulse Resp B/P (MAP) Pulse Ox O2 Delivery O2 Flow Rate FiO2 05/26/18 12:00 97.9 81 17 130/79 (96) 98 05/26/18 09:00 Venturi Mask 6.0 05/26/18 08:08 69 16 Room Air 21 05/26/18 08:00 71 05/26/18 08:00 98.8 72 18 142/88 (106) 97 05/26/18 04:00 98.2 61 20 134/77 (96) 98 05/26/18 04:00 68 05/26/18 00:52 82 18 Room Air 21 05/26/18 00:00 97.5 66 20 139/75 (96) 95 05/26/18 00:00 74 05/25/18 21:00 Venturi Mask 6.0 05/25/18 20:00 72 05/25/18 20:00 98.0 75 18 120/75 (90) 95 05/25/18 16:00 98.3 74 18 119/70 (86) 96 05/25/18 16:00 75 Intake and Output 05/25/18 05/26/18 18:59 06:59 Intake Total 970 ml Balance 970 ml Intake Oral 320 ml IV Total 650 ml # Voids 5 2 # Bowel Movements 1 1 Height (Feet): 5 Height (Inches): 8.00 Weight (Pounds): 180 Objective CV RR Lungs B Ronchi Abd SNT. BS + E No CCE Treasure Soriano MD May 26, 2018 12:58
[2018-05-26 16:00] VITALS: BP 127/82
--- NOTE | 2018-05-26 19:10 | NUR ---
HAND-OFF: Report given to VAISHALI Vargas.
--- NOTE | 2018-05-26 19:11 | NUR ---
NURSE NOTES: Got report from Christianne Enrique. Pt in stable condition. Denies any pain. No s/s of distress noted. Pt resting in bed comfortably. Bed in low and locked position, call light within reach, bedside table within reach. Continue to monitor.
[2018-05-26 20:00] VITALS: BP 150/90
[2018-05-26] MEDS: cefTRIAXone 1 GM in D5W 55 ML IVPB SCH (20:30)
[2018-05-27 00:07] VITALS: BP 136/72
[2018-05-27] MEDS: 1/2NS w/KCl 20mEq 1000ml 1,000 ML IV SCH ×2 (03:03→17:18)
[2018-05-27 03:52] VITALS: BP 142/80
--- NOTE | 2018-05-27 07:20 | NUR ---
HAND-OFF: Report given to Gilberto Enrique. endorsed plan of care.
--- NOTE | 2018-05-27 07:42 | NUR ---
NURSE NOTES: Pt in bed in low position, HOB elevated to high fowlers as pt wants to eat breakfast, pt on Ventury mask at 4L however pt removed it to eat, pt was seen eating by himself with no problem, IV site intact and patent Left AC 20 patent and asymptomatic, pt is incontinent, pt denies pain, pt calm and cooperative, labs were drawn today, pt should discharge soon, call light at bedside, Ox2 with periods of confusion, pt on a CCHO puree diet, no s/s of distress or sob noted. bed alarm on.
[2018-05-27 08:00] VITALS: BP 139/87
[2018-05-27 09:15] LABS: BASOPHILS % (AUTO) 0.7 % (0.0-2.0); EOSINOPHILS % (AUTO) 0.7 % (0.0-3.0); HEMATOCRIT 35.7 % (42.0-52.0); LYMPHOCYTES % (AUTO) 21.5 % (20.0-45.0); MEAN CORPUSCULAR VOLUME 91 FL (80-99); MONOCYTES % (AUTO) 11.9 % (1.0-10.0); NEUTROPHILS % (AUTO) 65.2 % (45.0-75.0); PLATELET COUNT 132 K/UL (150-450); RED BLOOD COUNT 3.94 M/UL (4.70-6.10); RED CELL DISTRIBUTION WIDTH 11.7 % (11.6-14.8); WHITE BLOOD COUNT 6.8 K/UL (4.8-10.8)
--- NOTE | 2018-05-27 09:28 | General Progress Note ---
Assessment/Plan Assessment/Plan Pneumonia - IV Abx Dysphagia - needs swallow eval. CKD -IVF. U C+S Serratia - ID to advise. Subjective Allergies: Coded Allergies: No Known Allergies (Verified , 06/04/07) Subjective Confused. Objective Last 24 Hour Vital Signs Date Time Temp Pulse Resp B/P (MAP) Pulse Ox O2 Delivery O2 Flow Rate FiO2 05/27/18 08:26 Venturi Mask 6.0 05/27/18 08:00 97.6 92 16 139/87 (104) 96 05/27/18 04:20 73 05/27/18 03:52 97.7 72 20 142/80 (100) 95 05/27/18 01:47 72 16 Venturi Mask 6.0 35 05/27/18 00:07 97.3 74 20 136/72 (93) 95 05/27/18 00:00 73 05/26/18 21:00 Venturi Mask 6.0 05/26/18 20:00 76 05/26/18 20:00 97.2 74 20 150/90 (110) 96 05/26/18 16:00 98.8 82 18 127/82 (97) 97 05/26/18 16:00 67 05/26/18 12:01 75 05/26/18 12:00 97.9 81 17 130/79 (96) 98 Intake and Output 05/26/18 05/27/18 19:00 07:00 Intake Total 300 ml Output Total 600 ml 1000 ml Balance -300 ml -1000 ml Other 300 ml Output Urine Total 600 ml 1000 ml # Bowel Movements 1 1 Laboratory Tests 05/27/18 08:51: White Blood Count 6.8, Red Blood Count 3.94L, Hemoglobin 12.0L, Hematocrit 35.7L , Mean Corpuscular Volume 91, Mean Corpuscular Hemoglobin 30.5, Mean Corpuscular Hemoglobin Concent 33.7, Red Cell Distribution Width 11.7, Platelet Count 132L, Mean Platelet Volume 6.5, Neutrophils (%) (Auto) 65.2, Lymphocytes ( %) (Auto) 21.5, Monocytes (%) (Auto) 11.9H, Eosinophils (%) (Auto) 0.7, Basophils (%) (Auto) 0.7, Sodium Level [Pending], Potassium Level [Pending], Chloride Level [Pending], Carbon Dioxide Level [Pending], Blood Urea Nitrogen [ Pending], Creatinine [Pending], Estimat Glomerular Filtration Rate [Pending], Glucose Level [Pending], Calcium Level [Pending], Magnesium Level [Pending] Height (Feet): 5 Height (Inches): 8.00 Weight (Pounds): 180 Objective CV RR Lungs B Nadya Bridges SNT. BS + E No CCE Treasure Soriano MD May 27, 2018 09:28
[2018-05-27 09:35] LABS: CREATININE 1.3 MG/DL (0.55-1.30)
[2018-05-27] MEDS: Docusate 100mg cap ORAL SCH ×2 (09:39→21:16)
[2018-05-27] MEDS: Heparin 5000 units/ml inj SUBQ SCH ×2 (09:41→21:00)
[2018-05-27 09:42] LABS: ANION GAP 16 mmol/L (5-15); BLOOD UREA NITROGEN 27 mg/dL (7-18); CALCIUM 8.3 MG/DL (8.5-10.1); CARBON DIOXIDE 18 MMOL/L (21-32); CHLORIDE 112 MMOL/L (98-107); CREATININE 1.3 MG/DL (0.55-1.30); POTASSIUM 3.8 MMOL/L (3.5-5.1); SODIUM 146 MMOL/L (136-145)
[2018-05-27 12:00] VITALS: BP 144/78
--- NOTE | 2018-05-27 14:40 | Physician Query ---
--------- THIS DOCUMENT IS A PERMANENT PART OF THE MEDICAL RECORD --------- PLEASE COMPLETE DOCUMENT BEFORE SIGNING Dear Dr. OLMOS Date: 05/27/18 Peat Shredder Tender/CDS Name: Lorene REYNOSO Peat Shredder Tender / CDS Phone # Exercise your independent professional judgment when responding to query. Question asked do not imply a particular answer is desired/expected. Clinical Documentation States: "Confusion, Pneumonia" documented in H&P Clinical Findings Show: Urinalysis = esterase 2+, wbc 10-15, bacteria moderate Urine C/S = Serratia mercescens Medication: Metronidazole 100ml @ 100ml/hr, Ceftriaxone 55 ml @ 110 ml/hr Please indicate the nature and chronicity of the condition below: [x] Metabolic Encephalopathy [] Toxic Encephalopathy [] Toxic - Metabolic Encephalopathy [] Progressive Encephalopathy [] Encephalopathy, Other [] Other: [] Not Applicable Severity [] Acute [] Chronic [] Acute on Chronic [] Unable to determine Condition Present on Admission: [] Yes [] No []Clinically Undeterminable Please also document in your Progress Notes and/or Discharge Summary and indicate if the condition was present on admission. LACI OLMOS M.D. DATE & TIME [facility]
--- NOTE | 2018-05-27 15:17 | Physician Query ---
--------- THIS DOCUMENT IS A PERMANENT PART OF THE MEDICAL RECORD --------- PLEASE COMPLETE DOCUMENT BEFORE SIGNING Dear Dr. Neelam OLMOS Date: 05/27/18 Paper Making Machine Operator/CDS Name: Ze REYNOSO Paper Making Machine Operator/CDS Phone No.: Exercise your independent professional judgment when responding to the query. Questions asked do not imply a particular answer is desired or expected. We greatly appreciate your clarification on this issue. CLINICAL DOCUMENTATION STATES: "UTI, ACTE RENAL FAILURE" = documented in ED REPORT CLINICAL FINDINGS SHOW: Creatinine = 2.3, 2.2, 1.3, 1.33 Urinalysis = esterase 2+, wbc 10-15, bacteria moderate Urine C/S = Serratia mercescens Medication: Metronidazole 100ml @ 100ml/hr, Ceftriaxone 55 ml @ 110 ml/hr Please respond to the following question: Is there a diagnosis/es specific to these symptoms or values? If so please state below. PHYSICIAN RESPONSE: Condition Present on Admission: [X] Yes [] No [] Clinically Undeterminable Please also document in your Progress Notes and/or Discharge Summary and indicate if the condition was present on admission. LACI OLMOS M.D. DATE & TIME [facility] [facility]
[2018-05-27 16:00] VITALS: BP 133/87
--- NOTE | 2018-05-27 17:01 | NUR ---
HAND-OFF: Report given to Saray jones Rn.
--- NOTE | 2018-05-27 17:03 | NUR ---
NURSE NOTES: Received report from VAISHALI Macias. Pt in bed resting, patient on Venturi mask at 4L IV site intact and patent Left AC 20 patent and asymptomatic, pt is incontinent. Patient denies pain at this time. No active s/s cardiac, respiratory distress noticed at this time. Bed in lowest position, side rails upx 2, call light within reach. Will continue to monitor.
--- NOTE | 2018-05-27 17:45 | Consultation ---
DATE OF CONSULTATION: 05/27/2018 INFECTIOUS DISEASES CONSULTATION CONSULTING PHYSICIAN: Daiana Driver M.D. REFERRING PHYSICIAN: Treasure Soriano M.D. REASON FOR CONSULTATION: Urinary tract infection. HISTORY OF PRESENTING ILLNESS: This is a 72-year-old gentleman with history of dementia, chronic kidney disease, CVA, and diabetes who came in with abdominal pain. He was found to have a urinary tract infection and an Infectious Diseases consultation has been obtained for antibiotics. PAST MEDICAL HISTORY: 1. History of dementia. 2. Chronic kidney disease. 3. CVA. 4. Diabetes. 5. Obstructive uropathy. 6. Hypothyroidism. SOCIAL HISTORY: Unknown. FAMILY HISTORY: Unknown. MEDICATIONS: As an inpatient, he is on Flagyl, Protonix, subcutaneous heparin, docusate, ceftriaxone, ipratropium, albuterol, Tylenol, and Benadryl. ALLERGIES: No known drug allergies. REVIEW OF SYSTEMS: Unable to obtain currently. PHYSICAL EXAMINATION: VITAL SIGNS: Temperature of 97.6, T-max of 98.8, pulse of 92, respiratory rate of 16, blood pressure 139/87, and O2 saturation of 96%. HEENT: Pupils equally reactive to light and accommodation. Mouth appears clean without thrush. NECK: Supple. No adenopathy. No JVD. CARDIOVASCULAR: Regular rate and rhythm. No murmurs. LUNGS: Clear to auscultation bilaterally. No crackles. No wheezes. ABDOMEN: Soft and nontender. No organomegaly. EXTREMITIES: No cyanosis, no clubbing, and no edema. LABORATORY AND DIAGNOSTIC DATA: White count 6.8, hemoglobin 12, hematocrit 35.7, MCV 91, and platelet count of 132,000 with neutrophils of 65%. Sodium 146, potassium 3.8, chloride 112, bicarb 18, BUN 27, creatinine 1.3, glucose 132, and calcium 8.3. On 05/23/2018, total bilirubin 1.1, AST 25, ALT 25, alkaline phosphatase 62, ammonia of 15, CK of 205, total protein 7.4, albumin of 3, and lipase of 146. UA showing 10 to 15 white cells. Urine culture is growing Serratia, which is susceptible to ceftriaxone, cefepime, ciprofloxacin, and Bactrim. Nasal swab was negative for MRSA. Rectal swab was negative for VRE. Stool for C. difficile colitis is negative. Blood cultures are negative. Chest x-ray showing a right basal hazy opacity, which may be infiltrate or pleural fluid and possible left-sided pleural effusion. CT abdomen and pelvis showing complete consolidation of the right lower lobe, mild ileus or enteritis, possible colonic diverticulosis noted, mildly thick-walled bladder with a small diverticulum, prostatomegaly noted, and cardiomegaly noted. ASSESSMENT: This is a 72-year-old gentleman with history of dementia, chronic kidney disease, and diabetes who comes in with abdominal pain and is found to have: 1. Serratia urinary tract infection. 2. Renal failure is improving. 3. Pneumonia. 4. Diabetes. PLAN: 1. Continue ceftriaxone two more days. 2. Discontinue Flagyl. 3. We will follow up cultures and adjust antibiotics accordingly. I would like to thank, Dr. Soriano, for this consultation. Daiana Driver M.D. DR: ROBERTA JOB#: [id number] CC: Treasure Soriano M.D.; Fax#: [phone]
--- NOTE | 2018-05-27 19:30 | NUR ---
NURSE NOTES: Received pt. and report from VAISHALI So. Observe pt. asleep in bed with both eyes closed. monitoring and evaluation advisor is in placed, IV site is intact, asymptomatic, and patent; currently running 1/2 NS w/ KCL 20 meq @ 75cc/hr. Bed is in the lowest position and locked, call light within reach. No acute distress noted at this time. Will continue plan of care.
--- NOTE | 2018-05-27 19:37 | NUR ---
HAND-OFF: Report given to VAISHALI Hernandez.
[2018-05-27 20:00] VITALS: BP 161/98
[2018-05-27] MEDS: cefTRIAXone 1 GM in D5W 55 ML IVPB SCH (21:16)
[2018-05-28] VITALS: BP 150/96
[2018-05-28 04:00] VITALS: BP 148/79
[2018-05-28] MEDS: 1/2NS w/KCl 20mEq 1000ml 1,000 ML IV SCH ×2 (06:23→21:35)
--- NOTE | 2018-05-28 07:15 | NUR ---
HAND-OFF: Report given to VAISHALI Macias.
--- NOTE | 2018-05-28 07:27 | NUR ---
Pt in bed in low position with HOB in semi fowlers, Venturi mask on at 6L, Pt in bed with eyes closed opens eyes when shaked or spoken to, yesterday patient ate very little, pt has no condom catheter, pt is incontinent, pt is Ox2 with periods of confusion, IV fluids running on LT AC 20 1/2NS with 20KCL at 75/hr, no s/s of distress or sob noted.
--- NOTE | 2018-05-28 07:47 | NUR ---
HAND-OFF: Report given to VAISHALI Macias.
[2018-05-28 07:52] LABS: BASOPHILS % (AUTO) 0.7 % (0.0-2.0); EOSINOPHILS % (AUTO) 1.5 % (0.0-3.0); HEMATOCRIT 35.8 % (42.0-52.0); HEMOGLOBIN 12.1 G/DL (14.2-18.0); LYMPHOCYTES % (AUTO) 26.2 % (20.0-45.0); MEAN CORPUSCULAR VOLUME 90 FL (80-99); MONOCYTES % (AUTO) 9.5 % (1.0-10.0); NEUTROPHILS % (AUTO) 62.1 % (45.0-75.0); PLATELET COUNT 132 K/UL (150-450); RED CELL DISTRIBUTION WIDTH 11.6 % (11.6-14.8)
[2018-05-28 08:00] VITALS: BP 142/82
[2018-05-28 08:10] LABS: ANION GAP 12 mmol/L (5-15); BLOOD UREA NITROGEN 20 mg/dL (7-18); CALCIUM 8.1 MG/DL (8.5-10.1); CARBON DIOXIDE 22 MMOL/L (21-32); CHLORIDE 110 MMOL/L (98-107); CREATININE 1.2 MG/DL (0.55-1.30); POTASSIUM 3.3 MMOL/L (3.5-5.1); SODIUM 144 MMOL/L (136-145)
[2018-05-28] MEDS: Docusate 100mg cap ORAL SCH ×2 (09:33→21:37)
[2018-05-28] MEDS: Heparin 5000 units/ml inj SUBQ SCH ×2 (09:36→21:00)
--- NOTE | 2018-05-28 10:36 | Infectious Diseases Prog Note ---
Assessment/Plan Assessment/Plan antibiotics : ceftriaxone A 1. serratia UTI 2. renal failure improving 3. dementia 4. pneumonia 5. diabetes mellitus P 1. continue ceftriaxone 1 more day 2. will follow up cultures Subjective ROS Limited/Unobtainable: Yes Allergies: Coded Allergies: No Known Allergies (Verified , 06/04/07) Objective Vital Signs Last 24 Hour Vital Signs Date Time Temp Pulse Resp B/P (MAP) Pulse Ox O2 Delivery O2 Flow Rate FiO2 05/28/18 08:43 Venturi Mask 6.0 05/28/18 08:15 60 17 Venturi Mask 6.0 35 05/28/18 08:15 Venturi Mask 6.0 35 05/28/18 08:15 93 Venturi Mask 6.0 35 05/28/18 08:00 98.2 57 20 142/82 (102) 93 05/28/18 04:00 97.1 65 19 148/79 (102) 97 05/28/18 04:00 65 05/28/18 00:00 97.9 70 18 150/96 (114) 97 05/28/18 00:00 68 05/27/18 21:00 Venturi Mask 6.0 05/27/18 20:31 77 18 Venturi Mask 6.0 35 05/27/18 20:00 97.7 67 19 161/98 (119) 93 05/27/18 20:00 64 05/27/18 16:00 97.5 69 16 133/87 (102) 98 05/27/18 16:00 79 05/27/18 12:00 97.8 88 16 144/78 (100) 94 05/27/18 11:55 74 Height (Feet): 5 Height (Inches): 8.00 Weight (Pounds): 180 Respiratory/Chest: lungs clear Cardiovascular: normal rate, regular rhythm, no gallop/murmur Abdomen: soft, non tender Extremities: no edema Laboratory Tests Test 05/28/18 05:52 White Blood Count 6.0 K/UL (4.8-10.8) Red Blood Count 4.00 M/UL (4.70-6.10) L Hemoglobin 12.1 G/DL (14.2-18.0) L Hematocrit 35.8 % (42.0-52.0) L Mean Corpuscular Volume 90 FL (80-99) Mean Corpuscular Hemoglobin 30.2 PG (27.0-31.0) Mean Corpuscular Hemoglobin Concent 33.7 G/DL (32.0-36.0) Red Cell Distribution Width 11.6 % (11.6-14.8) Platelet Count 132 K/UL (150-450) L Mean Platelet Volume 6.5 FL (6.5-10.1) Neutrophils (%) (Auto) 62.1 % (45.0-75.0) Lymphocytes (%) (Auto) 26.2 % (20.0-45.0) Monocytes (%) (Auto) 9.5 % (1.0-10.0) Eosinophils (%) (Auto) 1.5 % (0.0-3.0) Basophils (%) (Auto) 0.7 % (0.0-2.0) Sodium Level 144 MMOL/L (136-145) Potassium Level 3.3 MMOL/L (3.5-5.1) L Chloride Level 110 MMOL/L (98-107) H Carbon Dioxide Level 22 MMOL/L (21-32) Anion Gap 12 mmol/L (5-15) Blood Urea Nitrogen 20 mg/dL (7-18) H Creatinine 1.2 MG/DL (0.55-1.30) Estimat Glomerular Filtration Rate mL/min (>60) Glucose Level 123 MG/DL (74-106) H Calcium Level 8.1 MG/DL (8.5-10.1) L Current Medications Medications (Trade) Dose Ordered Sig/Angelica Route PRN Reason Start Time Stop Time Status Last Admin Dose Admin Acetaminophen (Tylenol) 650 mg Q4H PRN ORAL Mild Pain (Pain Scale 1-3) 05/23/18 18:15 06/22/18 18:14 05/28/18 01:25 Albuterol/ Ipratropium (Albuterol/ Ipratropium) 3 ml Q6H PRN HHN Shortness of Breath 05/23/18 18:15 05/28/18 18:14 Ceftriaxone Sodium 1 gm/ Dextrose 55 ml @ 110 mls/hr Q24H IVPB 05/23/18 21:00 05/30/18 20:59 05/27/18 21:16 Dextrose (Dextrose 50%) 25 ml Q30M PRN IV Hypoglycemia 05/23/18 18:15 3/16/19 18:14 Dextrose (Dextrose 50%) 50 ml Q30M PRN IV Hypoglycemia 05/23/18 18:15 06/22/18 18:14 Diphenhydramine HCl (Benadryl) 25 mg Q6H PRN ORAL Itching/Pruritis 05/23/18 18:15 06/22/18 18:14 Docusate Sodium (Colace) 100 mg EVERY 12 HOURS ORAL 05/23/18 21:00 06/22/18 20:59 05/28/18 09:33 Heparin Sodium (Porcine) (Heparin 5000 units/ml) 5,000 units EVERY 12 HOURS SUBQ 05/23/18 21:00 06/22/18 20:59 05/28/18 09:36 Iopamidol (Isovue-300 100ml) 100 ml NOW PRN INJ Radiology Procedure 05/23/18 14:15 Pantoprazole (Protonix) 40 mg DAILY ORAL 05/24/18 09:00 06/23/18 08:59 05/28/18 09:33 Sodium 1,000 ml @ 75 mls/hr [id number] IV 05/23/18 19:30 06/22/18 19:29 05/28/18 06:23 Daiana Driver MD May 28, 2018 10:36
--- NOTE | 2018-05-28 11:46 | General Progress Note ---
Assessment/Plan Assessment/Plan Pneumonia - IV Abx Serratia UTI - IV Abx Dysphagia - needs swallow eval. Pre renal azotemia improving with IVF. Subjective Allergies: Coded Allergies: No Known Allergies (Verified , 06/04/07) Subjective Confused. Objective Last 24 Hour Vital Signs Date Time Temp Pulse Resp B/P (MAP) Pulse Ox O2 Delivery O2 Flow Rate FiO2 05/28/18 08:43 Venturi Mask 6.0 05/28/18 08:15 60 17 Venturi Mask 6.0 35 05/28/18 08:15 Venturi Mask 6.0 35 05/28/18 08:15 93 Venturi Mask 6.0 35 05/28/18 08:00 98.2 57 20 142/82 (102) 93 05/28/18 07:42 65 05/28/18 04:00 97.1 65 19 148/79 (102) 97 05/28/18 04:00 65 05/28/18 00:00 97.9 70 18 150/96 (114) 97 05/28/18 00:00 68 05/27/18 21:00 Venturi Mask 6.0 05/27/18 20:31 77 18 Venturi Mask 6.0 35 05/27/18 20:00 97.7 67 19 161/98 (119) 93 05/27/18 20:00 64 05/27/18 16:00 97.5 69 16 133/87 (102) 98 05/27/18 16:00 79 05/27/18 12:00 97.8 88 16 144/78 (100) 94 05/27/18 11:55 74 Intake and Output 05/27/18 05/28/18 19:00 07:00 Intake Total 315 ml 975 ml Balance 315 ml 975 ml Intake Oral 240 ml IV Total 75 ml 975 ml # Bowel Movements 1 Laboratory Tests 05/28/18 05:52: White Blood Count 6.0, Red Blood Count 4.00L, Hemoglobin 12.1L, Hematocrit 35.8L , Mean Corpuscular Volume 90, Mean Corpuscular Hemoglobin 30.2, Mean Corpuscular Hemoglobin Concent 33.7, Red Cell Distribution Width 11.6, Platelet Count 132L, Mean Platelet Volume 6.5, Neutrophils (%) (Auto) 62.1, Lymphocytes ( %) (Auto) 26.2, Monocytes (%) (Auto) 9.5, Eosinophils (%) (Auto) 1.5, Basophils (%) (Auto) 0.7, Sodium Level 144, Potassium Level 3.3L, Chloride Level 110H, Carbon Dioxide Level 22, Anion Gap 12, Blood Urea Nitrogen 20H, Creatinine 1.2, Estimat Glomerular Filtration Rate , Glucose Level 123H, Calcium Level 8.1L Height (Feet): 5 Height (Inches): 8.00 Weight (Pounds): 180 Objective CV RR Lungs B Nadya Bridges SNT. BS + E No CCE Treasure Soriano MD May 28, 2018 11:46
[2018-05-28 12:00] VITALS: BP 178/89
--- NOTE | 2018-05-28 12:44 | NUR ---
ST NOTE: SWALLOW STATUS: RECEIVED REPEAT BEDSIDE SWALLOW EVAL ORDER AND VIDEOSWALLOW STUDY ORDER PT SEEN AT BEDSIDE IN AM AND EARLY PM. PT WITH VENTURI MASK(6L). PT AWAKE WITH MAX CUES, REQUIRED CHEST RUB, PT WOULD STAY AWAKE FOR A FEW BITES BUT FELT BACK TO SLEEP AGAIN. GIVEN NECTAR THICK LIQUIDS VIA TSP, MILD INCREASED ORAL TRANSIT TIME AND OROPHARYNGEAL TRANSIT TIME, FAIR LARYNGEAL ELEVATIONS, NO OVERT S/S OF ASPIRATION. DUE TO SCHEDULING CONFLICT AND ALSO PT DECREASED ALERTNESS, UNABLE TO COMPLETE THE VIDEOSWALLOW STUDY AT THIS TIME. WILL RE-ATTEMPT. D/W RNANA
[2018-05-28] MEDS: Minoxidil 2.5mg tab ORAL SCH ×2 (13:52→21:36)
[2018-05-28 16:00] VITALS: BP 154/75
--- NOTE | 2018-05-28 19:04 | NUR ---
HAND-OFF: Report given to kaia Enrique.
--- NOTE | 2018-05-28 19:05 | NUR ---
NURSE NOTES: Received pt from VAISHALI Macias. Pt asleep. Bed in lowest position. Call light within reach. IV site intact and patent. Will continue to monitor.
[2018-05-28 20:00] VITALS: BP 174/92
[2018-05-28] MEDS ORDERED: Minoxidil 2.5mg tab ORAL SCH (21:00)
[2018-05-28] MEDS: cefTRIAXone 1 GM in D5W 55 ML IVPB SCH (21:35)
[2018-05-29] VITALS: BP 161/90
--- NOTE | 2018-05-29 03:02 | NUR ---
NURSE NOTES: Called and left a message with Dr. Soriano regarding PRN BP meds. Awaiting call back.
[2018-05-29 04:00] VITALS: BP 161/88
--- NOTE | 2018-05-29 07:47 | NUR ---
HAND-OFF: Report given to VAISHALI Potter.
--- NOTE | 2018-05-29 07:50 | NUR ---
NURSE NOTES: Report received from Zahra TOM.Pt resting in bed awake,very lethargic,unable to follow verbal command,on 2 L NC, noted no resp distress,no signs of pain or discomfort ,SR on the monitor,kept NPO pending Video Swallow,with condom cath in placed,IV site to LAC intact with IVF 1/2 NS +20 MEQ KCL running at 75ml/hr,skin warm and dry ,SR up x2 HOB elevated,bed in lowest position will continue with plans of care.
[2018-05-29 08:00] VITALS: BP 169/86
--- NOTE | 2018-05-29 08:36 | NUR ---
CASE MANAGEMENT:REVIEW 05/29/18 SI: PNEUMONIA. UTI. DYSPHAGIA PRE RENAL AZOTEMIA 97.7 66 19 161/88 92% ON 3L/NC IS; IV ROCEPHIN Q24 IVF@75/HR : TELEMETRY STATUS DCP; FROM [facility]: NEEDS SWALLOW EVAL AND VIDEO SWALLOW WHEN MORE AWAKE
[2018-05-29] MEDS: 1/2NS w/KCl 20mEq 1000ml 1,000 ML IV SCH ×2 (08:50→15:26)
[2018-05-29] MEDS: Docusate 100mg cap ORAL SCH ×2 (09:00→21:00)
[2018-05-29] MEDS: Minoxidil 2.5mg tab ORAL SCH ×2 (09:00→20:59)
[2018-05-29 09:16] LABS: BASOPHILS % (AUTO) 0.9 % (0.0-2.0); EOSINOPHILS % (AUTO) 2.4 % (0.0-3.0); HEMOGLOBIN 11.8 G/DL (14.2-18.0); LYMPHOCYTES % (AUTO) 30.7 % (20.0-45.0); MEAN CORPUSCULAR VOLUME 90 FL (80-99); MONOCYTES % (AUTO) 7.4 % (1.0-10.0); NEUTROPHILS % (AUTO) 58.7 % (45.0-75.0); PLATELET COUNT 156 K/UL (150-450); RED BLOOD COUNT 3.91 M/UL (4.70-6.10); RED CELL DISTRIBUTION WIDTH 11.5 % (11.6-14.8); WHITE BLOOD COUNT 5.8 K/UL (4.8-10.8)
[2018-05-29 09:39] LABS: ANION GAP 11 mmol/L (5-15); BLOOD UREA NITROGEN 14 mg/dL (7-18); CALCIUM 7.6 MG/DL (8.5-10.1); CARBON DIOXIDE 23 MMOL/L (21-32); CHLORIDE 109 MMOL/L (98-107); POTASSIUM 3.7 MMOL/L (3.5-5.1); SODIUM 143 MMOL/L (136-145)
--- NOTE | 2018-05-29 09:40 | NUR ---
NURSE NOTES: Pt brought down per bed for Video swallow accompanied by transporter,awake,in no resp distress,stable.
--- NOTE | 2018-05-29 10:18 | Infectious Diseases Prog Note ---
Assessment/Plan Assessment/Plan antibiotics : ceftriaxone A 1. serratia UTI s/p rx 2. renal failure improving 3. dementia 4. pneumonia s/p rx 5. diabetes mellitus P 1. d/c ceftriaxone 2. observe off antibiotics Subjective ROS Limited/Unobtainable: Yes Allergies: Coded Allergies: No Known Allergies (Verified , 06/04/07) Objective Vital Signs Last 24 Hour Vital Signs Date Time Temp Pulse Resp B/P (MAP) Pulse Ox O2 Delivery O2 Flow Rate FiO2 05/29/18 04:00 65 05/29/18 04:00 97.7 66 19 161/88 (112) 92 05/29/18 00:00 69 05/29/18 00:00 97.5 60 18 161/90 (113) 94 05/28/18 23:23 93 Nasal Cannula 3.0 32 05/28/18 23:23 Nasal Cannula 3.0 32 05/28/18 23:22 71 16 Nasal Cannula 3.0 32 05/28/18 21:36 174/92 05/28/18 21:00 Nasal Cannula 2.0 05/28/18 20:00 65 05/28/18 20:00 96.9 67 16 174/92 (119) 92 05/28/18 16:21 64 05/28/18 16:00 98.4 58 20 154/75 (101) 95 05/28/18 13:52 178/89 05/28/18 12:00 97.8 73 18 178/89 (118) 95 05/28/18 11:46 60 Height (Feet): 5 Height (Inches): 8.00 Weight (Pounds): 148 Respiratory/Chest: lungs clear Cardiovascular: normal rate, regular rhythm, no gallop/murmur Abdomen: soft, non tender Extremities: no edema Laboratory Tests Test 05/29/18 07:00 White Blood Count 5.8 K/UL (4.8-10.8) Red Blood Count 3.91 M/UL (4.70-6.10) L Hemoglobin 11.8 G/DL (14.2-18.0) L Hematocrit 35.0 % (42.0-52.0) L Mean Corpuscular Volume 90 FL (80-99) Mean Corpuscular Hemoglobin 30.1 PG (27.0-31.0) Mean Corpuscular Hemoglobin Concent 33.6 G/DL (32.0-36.0) Red Cell Distribution Width 11.5 % (11.6-14.8) L Platelet Count 156 K/UL (150-450) Mean Platelet Volume 5.7 FL (6.5-10.1) L Neutrophils (%) (Auto) 58.7 % (45.0-75.0) Lymphocytes (%) (Auto) 30.7 % (20.0-45.0) Monocytes (%) (Auto) 7.4 % (1.0-10.0) Eosinophils (%) (Auto) 2.4 % (0.0-3.0) Basophils (%) (Auto) 0.9 % (0.0-2.0) Sodium Level 143 MMOL/L (136-145) Potassium Level 3.7 MMOL/L (3.5-5.1) Chloride Level 109 MMOL/L (98-107) H Carbon Dioxide Level 23 MMOL/L (21-32) Anion Gap 11 mmol/L (5-15) Blood Urea Nitrogen 14 mg/dL (7-18) Creatinine 1.0 MG/DL (0.55-1.30) Estimat Glomerular Filtration Rate mL/min (>60) Glucose Level 117 MG/DL (74-106) H Calcium Level 7.6 MG/DL (8.5-10.1) L Magnesium Level 1.7 MG/DL (1.8-2.4) L Current Medications Medications (Trade) Dose Ordered Sig/Angelica Route PRN Reason Start Time Stop Time Status Last Admin Dose Admin Acetaminophen (Tylenol) 650 mg Q4H PRN ORAL Mild Pain (Pain Scale 1-3) 05/23/18 18:15 06/22/18 18:14 05/28/18 01:25 Ceftriaxone Sodium 1 gm/ Dextrose 55 ml @ 110 mls/hr Q24H IVPB 05/23/18 21:00 05/30/18 20:59 05/28/18 21:35 Dextrose (Dextrose 50%) 25 ml Q30M PRN IV Hypoglycemia 05/23/18 18:15 06/22/18 18:14 Dextrose (Dextrose 50%) 50 ml Q30M PRN IV Hypoglycemia 05/23/18 18:15 06/22/18 18:14 Diphenhydramine HCl (Benadryl) 25 mg Q6H PRN ORAL Itching/Pruritis 05/23/18 18:15 06/22/18 18:14 Docusate Sodium (Colace) 100 mg EVERY 12 HOURS ORAL 05/23/18 21:00 06/22/18 20:59 05/28/18 21:37 Heparin Sodium (Porcine) (Heparin 5000 units/ml) 5,000 units EVERY 12 HOURS SUBQ 05/23/18 21:00 06/22/18 20:59 05/28/18 09:36 Iopamidol (Isovue-300 100ml) 100 ml NOW PRN INJ Radiology Procedure 05/23/18 14:15 Minoxidil (Loniten) 2.5 mg Q12HR ORAL 05/28/18 13:37 06/27/18 13:36 05/28/18 21:36 Pantoprazole (Protonix) 40 mg DAILY ORAL 05/24/18 09:00 06/23/18 08:59 05/28/18 09:33 Sodium 1,000 ml @ 75 mls/hr [id number] IV 05/23/18 19:30 06/22/18 19:29 05/28/18 21:35 Daiana Driver MD May 29, 2018 10:18
--- NOTE | 2018-05-29 10:35 | NUR ---
NURSE NOTES: Pt back to Telemetry unit per bed awake,alert in no resp distress,failed on the Video swallow,Speech Terapist Nela,will contact Dr Clifton for NPO orders.
[2018-05-29] MEDS: Heparin 5000 units/ml inj SUBQ SCH ×2 (10:49→21:06)
--- NOTE | 2018-05-29 11:49 | NUR ---
ST NOTE: MODIFIED BARIUM SWALLOW STUDY COMPLETED MODIFIED BARIUM SWALLOW STUDY FULL REPORT WILL FOLLOW UNDER ST NOTE IN CARE ACTIVITY PT REQUIRED MAX CUES TO MAINTAIN ALERTNESS DURING MODIFIED BARIUM SWALLOW STUDY, PT WITH NC(2L), POOR ABILITY IN FOLLOWING DIRECTIONS. GIVEN PO TRIALS: THIN(TSPX2/MED CUP/STRAW-ONE SIP), NECTAR THICK(TSP/STRAW-ONE SIP-SMALL SIP), HONEY THICK(TSP), PUDDING(TSP) IMPRESSION: PT PRESENTS WITH MODERATELY SEVERE OROPHARYNGEAL DYSPHAGIA CHARACTERIZED ANTERIOR SPILLAGE WITH THIN LIQUIDS, POOR BOLUS CONTROL WITH DISORGANIZED TONGUE MOTION. INCREASED ORAL TRANSIT TIME AND OROPHARYNGEAL TRANSIT TIME DUE TO SENSORIMOTOR DEFICITS AND PROBABLE ORAL APRAXIA. MILD TO MODERATE TONGUE BASE AND VALLECULAR RESIDUE, WORSE WITH HONEY THICK LIQUIDS, WAS NOTED DUE TO REDUCED TONGUE BASE RETRACTION AND REDUCED EPIGLOTTIC INVERSION. DELAYED SWALLOW AND REDUCED LARYNGEAL ELEVATION WERE ALSO NOTED. LIMITED SWALLOW TECHNIQUES WERE ABLE TO USE DUE TO PT'S COGNITIVE IMPAIRMENT. PT BENEFITS FROM SWALLOW X 2 TIMES AND ALLOW TIME. NO SIGNIFICANT ASPIRATION WAS NOTED BUT HAS HIGH RISK DUE TO PT'S OVERALL WEAKNESS AND DECREASED ALERTNESS. PT IS ALSO AT HIGH RISK FOR MALNUTRITION AND DEHYDRATION. RECOMMENDATIONS: 1. DUE TO PT REDUCES ALERTNESS, POOR PO INTAKE AND RE-CURRRENT PNA, LONG-TERM NONORAL FEEDING MEANS IS RECOMMENDED TO MEET NUTRITION AND HYDRATION NEEDS IF PT/DPOA AGREES. 2. IF PT/DPOA REFUSES LONG-TERM NONORAL FEEDING MEANS, AND PO SHOULD BE GIVEN FOR QUALITY OF LIFE, DIET IS RECOMMENDED LIQUIFIED PUREED, LIKE NECTAR THICK SOUP CONSISTENCY WITH NECTAR THICK LIQUIDS WITH STRICT ASPIRATION/REFLUX PRECAUTIONS WITH 1TO1 FEEDING. 3. TRIAL SWALLOW TX IF ABLE. 4. KEEP PT NPO FOR NOW. INFORMED MD. DR. OLMOS RE:RESULTS AND RECOMMENDATIONS. D/W RNFANNY. POSTED NPO SIGN.
[2018-05-29 12:00] VITALS: BP 167/98
--- NOTE | 2018-05-29 12:26 | NUR ---
RD ASSESSMENT & RECOMMENDATIONS SEE CARE ACTIVITY FOR COMPLETE ASSESSMENT DAILY ESTIMATED NEEDS: Needs based on DM/ 67kg 25-30 kcals/kg total kcals 1-1.3 g protein/kg 67-87 g total protein 25-30 mL/kg total fluid mLs NUTRITION DIAGNOSIS: Swallowing difficulty R/T dysphagia, h/o CVA, lethargy as evidenced by s/p VSS, WRAP CHECKER recommends NPO, shelter nonoral feedings. CURRENT DIET:NPO ENTERAL NUTRITION RECOMMENDATIONS: Glucerna 1.2 @ 60ml/hr x 24 hrs to provide 1440ml, 1728kcal, 86g prot, 1159ml free water * If TF part of POC, rec to obtain GI access, initiate TF. * Initiate Glucerna 1.2 @ 10ml/hr x 6 hrs, advance 10ml q 4-6 hrs as tolerated to goal rate. * HOB over 30 degrees/ water flush per MD ADDITIONAL RECOMMENDATIONS: * Calibrated bedscale wt for accurate CBW * Monitor POC- TF vs comfort feeding? NPO at this time * Monitor lytes daily w/ TF, replete as needed- high risk for refeeding * A1C for eval of glycemic control- h/o DM * Monitor BGs closely w/ TF, need for SSI - h/o DM
--- NOTE | 2018-05-29 12:27 | GI Initial Consult Note ---
History of Present Illness General Date patient seen: May 29, 2018 Time patient seen: 12:21 Reason for Hospitalization: Abdominal Pain Referring physician: GRICELDA Reason for Consultation: PEG evaluation Present Illness HPI HISTORY OF PRESENT ILLNESS: This is a 72-year-old male from [facility]. I was called about the patient complaining of abdominal pain. He was sent to the ER. The patient is demented and unable to give any further information. GI consulted for evaluation, abdominal distention. Patient seen, awake alert and oriented no apparent distress, no nausea or vomiting. Patient abdomen is distended, firm, non-tympanic. Abdominal pelvis CT was performed approximately 6 days ago noted with mildly dilated gas-filled proximal small bowel loops which may represent mild ileus or enteritis changes. Labs reviewed; patient presents with normocytic anemia. The patient is currently n.p.o., video swallow study was unable to be performed at this time. Unknown history of endoscopic colonoscopy. Home Meds Reported Medications Lactulose (LACTULOSE*) 20 Gm/30 Ml Solution, 30 ML ORAL DAILY PRN for Constipation, ML 0 Refills 05/23/18 Memantine Hcl* (NAMENDA*) 5 Mg Tablet, 5 MG ORAL DAILY, TAB 05/23/18 Finasteride* (PROSCAR*) 5 Mg Tablet, 5 MG ORAL DAILY, #30 TAB 0 Refills 05/23/18 Aspirin* (ASPIRIN*) 81 Mg Tab.chew, 81 MG ORAL DAILY, TAB 01/13/18 Vitamin D (Vitamin D3) 400 Unit Tablet, 1000 UNITS ORAL DAILY, TAB 12/17/17 Multivitamin With Minerals (MULTIVITAMINS WITH MINERALS*) 1 Each Tablet, 1 TAB ORAL DAILY, TAB 12/17/17 Levothyroxine Sodium* (LEVOTHYROXINE SODIUM*) 25 Mcg Tablet, 25 MCG ORAL ACBREAKFAST, TAB Take in the morning on an empty stomach, at least 30 minutes before food. 08/07/16 Amlodipine Besylate (Norvasc) 10 Mg Tablet, 10 MG ORAL DAILY, TAB 08/07/16 Tamsulosin Hcl (TAMSULOSIN HCL*) 0.4 Mg Cap.er.24h, 0.4 MG ORAL BEDTIME, CAP 08/07/16 Atorvastatin Calcium* (ATORVASTATIN CALCIUM*) 20 Mg Tablet, 20 MG ORAL BEDTIME, TAB 09/18/12 Memantine Hcl* (NAMENDA*) 10 Mg Tablet, 5 MG ORAL DAILY 09/18/12 Carvedilol* (CARVEDILOL*) 25 Mg Tablet, 25 MG ORAL BID, TAB 09/18/12 Finasteride* (PROSCAR*) 5 Mg Tablet, 5 MG ORAL DAILY, #30 TAB 09/18/12 Isosorbide Mononitrate (ISOSORBIDE MONONITRATE ER) 60 Mg Tab.er.24h, 60 MG PO DAILY 09/18/12 Med list reviewed/reconciled: Yes Allergies: Coded Allergies: No Known Allergies (Verified , 06/04/07) Patient History Limited by: medical condition History Provided By: Medical Record [facility] Narrative PAST MEDICAL HISTORY: 1. Organic brain syndrome. 2. Chronic kidney disease. 3. Status post CVA. 4. Type 2 diabetes mellitus. 5. Obstructive uropathy. 6. Hypothyroidism. Social History: Denies: smoking, alcohol use, drug use, other Review of Systems All Other Systems: limited Physical Exam Vital Signs Date Time Temp Pulse Resp B/P (MAP) Pulse Ox O2 Delivery O2 Flow Rate FiO2 05/25/18 08:00 98.0 77 18 116/62 (80) 95 05/25/18 08:20 Room Air 21 05/25/18 09:00 6.0 Sp02 EP Interpretation: reviewed, normal Labs Laboratory Tests Test 05/29/18 07:00 White Blood Count 5.8 K/UL (4.8-10.8) Red Blood Count 3.91 M/UL (4.70-6.10) L Hemoglobin 11.8 G/DL (14.2-18.0) L Hematocrit 35.0 % (42.0-52.0) L Mean Corpuscular Volume 90 FL (80-99) Mean Corpuscular Hemoglobin 30.1 PG (27.0-31.0) Mean Corpuscular Hemoglobin Concent 33.6 G/DL (32.0-36.0) Red Cell Distribution Width 11.5 % (11.6-14.8) L Platelet Count 156 K/UL (150-450) Mean Platelet Volume 5.7 FL (6.5-10.1) L Neutrophils (%) (Auto) 58.7 % (45.0-75.0) Lymphocytes (%) (Auto) 30.7 % (20.0-45.0) Monocytes (%) (Auto) 7.4 % (1.0-10.0) Eosinophils (%) (Auto) 2.4 % (0.0-3.0) Basophils (%) (Auto) 0.9 % (0.0-2.0) Sodium Level 143 MMOL/L (136-145) Potassium Level 3.7 MMOL/L (3.5-5.1) Chloride Level 109 MMOL/L (98-107) H Carbon Dioxide Level 23 MMOL/L (21-32) Anion Gap 11 mmol/L (5-15) Blood Urea Nitrogen 14 mg/dL (7-18) Creatinine 1.0 MG/DL (0.55-1.30) Estimat Glomerular Filtration Rate mL/min (>60) Glucose Level 117 MG/DL (74-106) H Calcium Level 7.6 MG/DL (8.5-10.1) L Magnesium Level 1.7 MG/DL (1.8-2.4) L General Appearance: well appearing, no apparent distress, alert Head: normocephalic EENT: PERRL/EOMI, normal ENT inspection Neck: supple Respiratory: normal breath sounds, no respiratory distress Cardiovascular: normal rate Gastrointestinal: normal inspection, non tender, soft, normal bowel sounds, non -distended, distended Rectal: deferred Genitourinary: deferred Musculoskeletal: normal inspection Neurologic: alert, responsive Skin: normal inspection, normal color, no rash, warm/dry, palpation normal, well hydrated Lymphatic: normal inspection, no adenopathy Current Medications Current Medications Medications (Trade) Dose Ordered Sig/Angelica Route PRN Reason Start Time Stop Time Status Last Admin Dose Admin Acetaminophen (Tylenol) 650 mg Q4H PRN ORAL Mild Pain (Pain Scale 1-3) 05/23/18 18:15 06/22/18 18:14 05/28/18 01:25 Dextrose (Dextrose 50%) 25 ml Q30M PRN IV Hypoglycemia 05/23/18 18:15 06/22/18 18:14 Dextrose (Dextrose 50%) 50 ml Q30M PRN IV Hypoglycemia 05/23/18 18:15 06/22/18 18:14 Diphenhydramine HCl (Benadryl) 25 mg Q6H PRN ORAL Itching/Pruritis 05/23/18 18:15 06/22/18 18:14 Docusate Sodium (Colace) 100 mg EVERY 12 HOURS ORAL 05/23/18 21:00 06/22/18 20:59 05/28/18 21:37 Heparin Sodium (Porcine) (Heparin 5000 units/ml) 5,000 units EVERY 12 HOURS SUBQ 05/23/18 21:00 06/22/18 20:59 05/29/18 10:49 Iopamidol (Isovue-300 100ml) 100 ml NOW PRN INJ Radiology Procedure 05/23/18 14:15 Minoxidil (Loniten) 2.5 mg Q12HR ORAL 05/28/18 13:37 06/27/18 13:36 05/28/18 21:36 Pantoprazole (Protonix) 40 mg DAILY ORAL 05/24/18 09:00 06/23/18 08:59 05/28/18 09:33 Sodium 1,000 ml @ 75 mls/hr [id number] IV 05/23/18 19:30 06/22/18 19:29 05/28/18 21:35 GI: Plan Problems: (1) Ileus (2) Abdominal distention (3) Enteritis (4) Anemia (5) Abdominal pain (6) Encounter for PEG (percutaneous endoscopic gastrostomy) Plan Abdominal pelvis CT reviewed, noted dilated small bowel loops which may represent ileus or enteritis. Possible PEG pending workup Follow-up swallow video study Will order a pattern keeper image today N.p.o. plus IV fluids anemia work up OB stool r/o GI bleed monitor H&H, prn transfusions bowel regime ppi fu labs Discussed with Dr. Salinas. Thank you for this patient referral, we will follow. The patient was seen and examined at bedside and all new and available data was reviewed in the patients chart. I agree with the above findings, impression and plan. (Patient seen earlier today. Signature stamp does not reflect patient encounter time.). - MD Thi Arroyo,[facility] [employer] May 29, 2018 12:27
--- NOTE | 2018-05-29 13:08 | NUR ---
RADIOLOGY DEPT ABDOMEN X-RAY PERFORMED.-P.DYE
--- NOTE | 2018-05-29 13:53 | Diagnostic Imaging Report ---
Indication: Abdominal distention Technique: Supine view of the abdomen Comparison: 08/07/2016 Findings: No definite gaseous distention of large or small bowel. Contrast from recent CT scan is seen in the left upper quadrant, probably within the splenic flexure of the colon. There is also some contrast within diverticula and the distal descending colon. No masses or unusual calcifications. Impression: No definite acute process. Findings as noted
--- NOTE | 2018-05-29 13:56 | General Progress Note ---
Assessment/Plan Assessment/Plan Pneumonia - IV Abx Serratia UTI - IV Abx Dysphagia - needs swallow eval. Done. DDW Speech therapy. Needs PEG. Called GI Dr. Salinas. Pre renal azotemia improving with IVF. Subjective Allergies: Coded Allergies: No Known Allergies (Verified , 06/04/07) Subjective Confused. Objective Last 24 Hour Vital Signs Date Time Temp Pulse Resp B/P (MAP) Pulse Ox O2 Delivery O2 Flow Rate FiO2 05/29/18 12:00 97.4 66 20 167/98 (121) 95 05/29/18 09:00 Nasal Cannula 2.0 05/29/18 08:05 67 17 Nasal Cannula 3.0 32 05/29/18 08:05 94 Nasal Cannula 3.0 32 05/29/18 08:05 Nasal Cannula 3.0 32 05/29/18 08:00 97.7 70 18 169/86 (113) 94 05/29/18 07:30 69 05/29/18 04:00 65 05/29/18 04:00 97.7 66 19 161/88 (112) 92 05/29/18 00:00 69 05/29/18 00:00 97.5 60 18 161/90 (113) 94 05/28/18 23:23 93 Nasal Cannula 3.0 32 05/28/18 23:23 Nasal Cannula 3.0 32 05/28/18 23:22 71 16 Nasal Cannula 3.0 32 05/28/18 21:36 174/92 05/28/18 21:00 Nasal Cannula 2.0 05/28/18 20:00 65 05/28/18 20:00 96.9 67 16 174/92 (119) 92 05/28/18 16:21 64 05/28/18 16:00 98.4 58 20 154/75 (101) 95 Intake and Output 05/28/18 05/29/18 19:00 07:00 Intake Total 120 ml Output Total 400 ml 650 ml Balance -280 ml -650 ml Intake Oral 120 ml Output Urine Total 400 ml 650 ml # Voids 3 # Bowel Movements 2 1 Laboratory Tests 05/29/18 07:00: White Blood Count 5.8, Red Blood Count 3.91L, Hemoglobin 11.8L, Hematocrit 35.0L , Mean Corpuscular Volume 90, Mean Corpuscular Hemoglobin 30.1, Mean Corpuscular Hemoglobin Concent 33.6, Red Cell Distribution Width 11.5L, Platelet Count 156, Mean Platelet Volume 5.7L, Neutrophils (%) (Auto) 58.7, Lymphocytes (%) (Auto) 30.7, Monocytes (%) (Auto) 7.4, Eosinophils (%) (Auto) 2.4, Basophils (%) (Auto) 0.9, Sodium Level 143, Potassium Level 3.7, Chloride Level 109H, Carbon Dioxide Level 23, Anion Gap 11, Blood Urea Nitrogen 14, Creatinine 1.0, Estimat Glomerular Filtration Rate , Glucose Level 117H, Calcium Level 7.6L, Magnesium Level 1.7L Height (Feet): 5 Height (Inches): 8.00 Weight (Pounds): 148 Objective CV RR Lungs B Nadya Bridges SNT. BS + E No CCE Treasure Soriano MD May 29, 2018 13:56
[2018-05-29 16:00] VITALS: BP 160/92
--- NOTE | 2018-05-29 18:20 | NUR ---
NURSE NOTES: call placed to Dr Soriano re clarification of IV Magnesium orders.Call returned,order to give a total of 3 bags of Magnesium only.
--- NOTE | 2018-05-29 18:30 | NUR ---
NURSE NOTES: per clarificaton purposes,ist bag of Magnesium infused at 1430,2nd bag 1530,and 3rd bag at 1737,Dr Soriano ordered to have a total of 3 bags of Magnesium 1 GM only.
--- NOTE | 2018-05-29 19:06 | NUR ---
HAND-OFF: Report given to Zaheer TOM.
--- NOTE | 2018-05-29 19:07 | NUR ---
NURSE NOTES: Received report from VAISHALI Potter. Patient in bed asleep with no signs of acute distress. Vitals stable. Respiration even and non labored on 2L NC. No SOB noted. IV line patent and intact. Bed in lowest position. Call light within reach. All needs attended and met. Will continue to monitor.
[2018-05-29 20:00] VITALS: BP 134/77
[2018-05-30] VITALS: BP 141/85
[2018-05-30 04:00] VITALS: BP 139/79
[2018-05-30] MEDS: 1/2NS w/KCl 20mEq 1000ml 1,000 ML IV SCH ×3 (05:23→22:22)
[2018-05-30 07:10] LABS: BASOPHILS % (AUTO) 0.5 % (0.0-2.0); EOSINOPHILS % (AUTO) 3.6 % (0.0-3.0); HEMATOCRIT 37.5 % (42.0-52.0); HEMOGLOBIN 12.7 G/DL (14.2-18.0); LYMPHOCYTES % (AUTO) 31.7 % (20.0-45.0); MEAN CORPUSCULAR VOLUME 90 FL (80-99); MONOCYTES % (AUTO) 5.6 % (1.0-10.0); NEUTROPHILS % (AUTO) 58.7 % (45.0-75.0); PLATELET COUNT 187 K/UL (150-450); RED BLOOD COUNT 4.19 M/UL (4.70-6.10); RED CELL DISTRIBUTION WIDTH 11.5 % (11.6-14.8); WHITE BLOOD COUNT 5.1 K/UL (4.8-10.8)
--- NOTE | 2018-05-30 07:27 | NUR ---
HAND-OFF: Report given to VAISHALI So.
--- NOTE | 2018-05-30 07:33 | NUR ---
NURSE NOTES: Received report from VAISHALI Perez. Patient in bed resting, no active s/s cardiac, respirator distress noticed at this time, denies pain. AOx1, SR with HR 68. Patient on 2L oxygen via NC. IV on left AC 20G, asymptomatic, patent, intact. IV running at prescribed rate. Endorsed need of OB stool collection, NPO status, 3 bags of magnesium given for magnesium level of 1.7. Bed in lowest position, side rails upx2, call light within reach. Will continue to monitor.
[2018-05-30 08:00] VITALS: BP 160/93
[2018-05-30 08:14] LABS: ANION GAP 11 mmol/L (5-15); BLOOD UREA NITROGEN 13 mg/dL (7-18); CALCIUM 8.2 MG/DL (8.5-10.1); CARBON DIOXIDE 23 MMOL/L (21-32); CHLORIDE 105 MMOL/L (98-107); CREATININE 1.2 MG/DL (0.55-1.30); FERRITIN 375 NG/ML (8-388); POTASSIUM 3.7 MMOL/L (3.5-5.1); SODIUM 139 MMOL/L (136-145)
[2018-05-30 08:36] LABS: % IRON SATURATION 30 % (15-50); IRON 36 ug/dL (50-175); TOTAL IRON BINDING CAPACITY 121 ug/dL (250-450)
[2018-05-30] MEDS: Docusate 100mg cap ORAL SCH ×2 (09:12→21:13)
[2018-05-30] MEDS: Minoxidil 2.5mg tab ORAL SCH ×2 (09:12→21:13)
[2018-05-30] MEDS: Heparin 5000 units/ml inj SUBQ SCH ×2 (09:13→21:00)
--- NOTE | 2018-05-30 10:29 | GI Progress Note ---
Assessment/Plan Problems: (1) Abdominal pain ICD Codes: R10.9 - Unspecified abdominal pain SNOMED: 43013830 Qualifiers: Qualified Codes: R10.84 - Generalized abdominal pain (2) Encounter for PEG (percutaneous endoscopic gastrostomy) ICD Codes: Z43.1 - Encounter for attention to gastrostomy SNOMED: 046450768, 928905340 (3) Enteritis ICD Codes: K52.9 - Noninfective gastroenteritis and colitis, unspecified SNOMED: 11540878 (4) Anemia ICD Codes: D64.9 - Anemia, unspecified SNOMED: 331309456 (5) Abdominal distention ICD Codes: R14.0 - Abdominal distension (gaseous) SNOMED: 26690157 Status: stable Status Narrative Discussed with Dr. Salinas Assessment/Plan Abdominal pelvis CT reviewed, noted dilated small bowel loops which may represent ileus or enteritis. Wastewater Plant Operator image negative Patient to be scheduled for PEG tomorrow. Maintain n.p.o. plus IV fluids Speech therapy evaluation noted anemia work up OB stool r/o GI bleed monitor H&H, prn transfusions bowel regime ppi fu labs we will follow with additional recommendations post procedure The patient was seen and examined at bedside and all new and available data was reviewed in the patients chart. I agree with the above findings, impression and plan. (Patient seen earlier today. Signature stamp does not reflect patient encounter time.). - Gonzalo Salinas MD Subjective Gastrointestinal/Abdominal: Reports: no symptoms Subjective Limited Objective Last 24 Hour Vital Signs Date Time Temp Pulse Resp B/P (MAP) Pulse Ox O2 Delivery O2 Flow Rate FiO2 05/30/18 09:26 69 20 Nasal Cannula 3.0 32 05/30/18 09:26 Nasal Cannula 3.0 32 05/30/18 09:12 160/93 05/30/18 09:00 Nasal Cannula 2.0 05/30/18 08:00 98.4 71 20 160/93 (115) 95 05/30/18 04:00 70 05/30/18 04:00 97.7 68 18 139/79 (99) 94 05/30/18 00:00 66 05/30/18 00:00 97.0 68 18 141/85 (103) 98 05/29/18 21:00 Nasal Cannula 2.0 2/20/19 20:59 134/77 05/29/18 20:31 Nasal Cannula 3.0 32 05/29/18 20:31 60 20 Nasal Cannula 3.0 32 05/29/18 20:31 96 Nasal Cannula 3.0 32 05/29/18 20:00 61 05/29/18 20:00 98.0 98 19 134/77 (96) 96 05/29/18 16:00 97.6 60 20 160/92 (114) 96 05/29/18 15:15 73 05/29/18 12:00 97.4 66 20 167/98 (121) 95 05/29/18 11:45 69 Intake and Output 05/29/18 05/30/18 19:00 07:00 Intake Total 750 ml 825 ml Balance 750 ml 825 ml IV Total 750 ml 825 ml # Voids 3 2 # Bowel Movements 1 1 Laboratory Tests Test 05/30/18 05:50 White Blood Count 5.1 K/UL (4.8-10.8) Red Blood Count 4.19 M/UL (4.70-6.10) L Hemoglobin 12.7 G/DL (14.2-18.0) L Hematocrit 37.5 % (42.0-52.0) L Mean Corpuscular Volume 90 FL (80-99) Mean Corpuscular Hemoglobin 30.3 PG (27.0-31.0) Mean Corpuscular Hemoglobin Concent 33.8 G/DL (32.0-36.0) Red Cell Distribution Width 11.5 % (11.6-14.8) L Platelet Count 187 K/UL (150-450) Mean Platelet Volume 6.3 FL (6.5-10.1) L Neutrophils (%) (Auto) 58.7 % (45.0-75.0) Lymphocytes (%) (Auto) 31.7 % (20.0-45.0) Monocytes (%) (Auto) 5.6 % (1.0-10.0) Eosinophils (%) (Auto) 3.6 % (0.0-3.0) H Basophils (%) (Auto) 0.5 % (0.0-2.0) Reticulocyte Count Pending Prothrombin Time 10.9 SEC (9.30-11.50) Prothromb Time International Ratio 1.0 (0.9-1.1) Activated Partial Thromboplast Time 31 SEC (23-33) Sodium Level 139 MMOL/L (136-145) Potassium Level 3.7 MMOL/L (3.5-5.1) Chloride Level 105 MMOL/L (98-107) Carbon Dioxide Level 23 MMOL/L (21-32) Anion Gap 11 mmol/L (5-15) Blood Urea Nitrogen 13 mg/dL (7-18) Creatinine 1.2 MG/DL (0.55-1.30) Estimat Glomerular Filtration Rate mL/min (>60) Glucose Level 105 MG/DL (74-106) Calcium Level 8.2 MG/DL (8.5-10.1) L Iron Level 36 ug/dL (50-175) L Total Iron Binding Capacity 121 ug/dL (250-450) L Percent Iron Saturation 30 % (15-50) Unsaturated Iron Binding 85 ug/dL (112-346) L Ferritin 375 NG/ML (8-388) Carcinoembryonic Antigen Pending Vitamin B12 Level 1619 PG/ML (193-986) H Folate 17.3 NG/ML (8.6-58.9) Thyroid Stimulating Hormone (TSH) 0.547 uiU/mL (0.358-3.740) Free Thyroxine 1.29 NG/DL (0.76-1.46) Height (Feet): 5 Height (Inches): 8.00 Weight (Pounds): 148 General Appearance: WD/WN, no apparent distress, alert Cardiovascular: normal rate Respiratory/Chest: normal breath sounds, no respiratory distress Abdominal Exam: normal bowel sounds, non tender, soft Extremities: non-tender Dank Ness NP May 30, 2018 10:29
--- NOTE | 2018-05-30 11:10 | NUR ---
NURSE NOTES: Called WINSTON Andrews, regarding EGD and PEG. Darryl unable to answer call for now. Will try again.
--- NOTE | 2018-05-30 11:19 | General Progress Note ---
Assessment/Plan Assessment/Plan Pneumonia - IV Abx Serratia UTI - IV Abx Dysphagia - needs swallow eval. Done. DDW Speech therapy. PEG tomorrow. Pre renal azotemia improving with IVF. Subjective Allergies: Coded Allergies: No Known Allergies (Verified , 06/04/07) Subjective Confused. Objective Last 24 Hour Vital Signs Date Time Temp Pulse Resp B/P (MAP) Pulse Ox O2 Delivery O2 Flow Rate FiO2 05/30/18 09:26 69 20 Nasal Cannula 3.0 32 05/30/18 09:26 Nasal Cannula 3.0 32 05/30/18 09:12 160/93 05/30/18 09:00 Nasal Cannula 2.0 05/30/18 08:00 98.4 71 20 160/93 (115) 95 05/30/18 08:00 65 05/30/18 04:00 70 05/30/18 04:00 97.7 68 18 139/79 (99) 94 05/30/18 00:00 66 05/30/18 00:00 97.0 68 18 141/85 (103) 98 05/29/18 21:00 Nasal Cannula 2.0 05/29/18 20:59 134/77 05/29/18 20:31 Nasal Cannula 3.0 32 05/29/18 20:31 60 20 Nasal Cannula 3.0 32 05/29/18 20:31 96 Nasal Cannula 3.0 32 05/29/18 20:00 61 05/29/18 20:00 98.0 98 19 134/77 (96) 96 05/29/18 16:00 97.6 60 20 160/92 (114) 96 05/29/18 15:15 73 05/29/18 12:00 97.4 66 20 167/98 (121) 95 05/29/18 11:45 69 Intake and Output 05/29/18 05/30/18 19:00 07:00 Intake Total 750 ml 825 ml Balance 750 ml 825 ml IV Total 750 ml 825 ml # Voids 3 2 # Bowel Movements 1 1 Laboratory Tests 05/30/18 05:50: White Blood Count 5.1, Red Blood Count 4.19L, Hemoglobin 12.7L, Hematocrit 37.5L , Mean Corpuscular Volume 90, Mean Corpuscular Hemoglobin 30.3, Mean Corpuscular Hemoglobin Concent 33.8, Red Cell Distribution Width 11.5L, Platelet Count 187, Mean Platelet Volume 6.3L, Neutrophils (%) (Auto) 58.7, Lymphocytes (%) (Auto) 31.7, Monocytes (%) (Auto) 5.6, Eosinophils (%) (Auto) 3.6H, Basophils (%) (Auto) 0.5, Reticulocyte Count 0.4, Prothrombin Time 10.9, Prothromb Time International Ratio 1.0, Activated Partial Thromboplast Time 31, Sodium Level 139, Potassium Level 3.7, Chloride Level 105, Carbon Dioxide Level 23, Anion Gap 11, Blood Urea Nitrogen 13, Creatinine 1.2, Estimat Glomerular Filtration Rate , Glucose Level 105, Calcium Level 8.2L, Iron Level 36L, Total Iron Binding Capacity 121L, Percent Iron Saturation 30, Unsaturated Iron Binding 85L, Ferritin 375, Carcinoembryonic Antigen [Pending], Vitamin B12 Level 1619H, Folate 17.3, Thyroid Stimulating Hormone (TSH) 0.547, Free Thyroxine 1.29 Height (Feet): 5 Height (Inches): 8.00 Weight (Pounds): 148 Objective CV RR Lungs B Nadya Bridges SNT. BS + E No CCE Treasure Soriano MD May 30, 2018 11:19
--- NOTE | 2018-05-30 11:21 | NUR ---
NURSE NOTES: Dr. Clifton at nursing station, Per Dr. Elodia dc to transfer patient to [facility]. Order entered, noted, carried out.
--- NOTE | 2018-05-30 11:51 | NUR ---
DISCHARGE PLANNING PATIENT IS FROM [facility] [place] [facility] NOTED SWALLOW EVAL LEFT MESSAGE FOR VERAS @ [phone] REGARDING PLAN OF CARE IT RELATES TO PEG OR COMFORT EATING. ALSO MENTIONED THAT PATIENT HAS A POA
[2018-05-30 12:00] VITALS: BP 162/92
--- NOTE | 2018-05-30 12:39 | Infectious Diseases Prog Note ---
Assessment/Plan Assessment/Plan A 1. serratia UTI s/p rx 2. renal failure improving 3. dementia 4. pneumonia s/p rx 5. diabetes mellitus P 1. observe off antibiotics Subjective ROS Limited/Unobtainable: No Constitutional: Reports: no symptoms Respiratory: Reports: productive cough Cardiovascular: Reports: no symptoms Gastrointestinal/Abdominal: Reports: no symptoms Genitourinary: Reports: no symptoms Allergies: Coded Allergies: No Known Allergies (Verified , 06/04/07) Objective Vital Signs Last 24 Hour Vital Signs Date Time Temp Pulse Resp B/P (MAP) Pulse Ox O2 Delivery O2 Flow Rate FiO2 05/30/18 09:26 69 20 Nasal Cannula 3.0 32 05/30/18 09:26 Nasal Cannula 3.0 32 05/30/18 09:12 160/93 05/30/18 09:00 Nasal Cannula 2.0 05/30/18 08:00 98.4 71 20 160/93 (115) 95 05/30/18 08:00 65 05/30/18 04:00 70 05/30/18 04:00 97.7 68 18 139/79 (99) 94 05/30/18 00:00 66 05/30/18 00:00 97.0 68 18 141/85 (103) 98 05/29/18 21:00 Nasal Cannula 2.0 05/29/18 20:59 134/77 05/29/18 20:31 Nasal Cannula 3.0 32 05/29/18 20:31 60 20 Nasal Cannula 3.0 32 05/29/18 20:31 96 Nasal Cannula 3.0 32 05/29/18 20:00 61 05/29/18 20:00 98.0 98 19 134/77 (96) 96 05/29/18 16:00 97.6 60 20 160/92 (114) 96 05/29/18 15:15 73 Height (Feet): 5 Height (Inches): 8.00 Weight (Pounds): 148 General Appearance: no acute distress HEENT: mucous membranes moist Respiratory/Chest: lungs clear Cardiovascular: normal rate Abdomen: distended Extremities: no edema Neurologic/Psychiatric: alert, responsive Laboratory Tests Test 05/30/18 05:50 White Blood Count 5.1 K/UL (4.8-10.8) Red Blood Count 4.19 M/UL (4.70-6.10) L Hemoglobin 12.7 G/DL (14.2-18.0) L Hematocrit 37.5 % (42.0-52.0) L Mean Corpuscular Volume 90 FL (80-99) Mean Corpuscular Hemoglobin 30.3 PG (27.0-31.0) Mean Corpuscular Hemoglobin Concent 33.8 G/DL (32.0-36.0) Red Cell Distribution Width 11.5 % (11.6-14.8) L Platelet Count 187 K/UL (150-450) Mean Platelet Volume 6.3 FL (6.5-10.1) L Neutrophils (%) (Auto) 58.7 % (45.0-75.0) Lymphocytes (%) (Auto) 31.7 % (20.0-45.0) Monocytes (%) (Auto) 5.6 % (1.0-10.0) Eosinophils (%) (Auto) 3.6 % (0.0-3.0) H Basophils (%) (Auto) 0.5 % (0.0-2.0) Reticulocyte Count 0.4 % (0.0-2.0) Prothrombin Time 10.9 SEC (9.30-11.50) Prothromb Time International Ratio 1.0 (0.9-1.1) Activated Partial Thromboplast Time 31 SEC (23-33) Sodium Level 139 MMOL/L (136-145) Potassium Level 3.7 MMOL/L (3.5-5.1) Chloride Level 105 MMOL/L (98-107) Carbon Dioxide Level 23 MMOL/L (21-32) Anion Gap 11 mmol/L (5-15) Blood Urea Nitrogen 13 mg/dL (7-18) Creatinine 1.2 MG/DL (0.55-1.30) Estimat Glomerular Filtration Rate mL/min (>60) Glucose Level 105 MG/DL (74-106) Calcium Level 8.2 MG/DL (8.5-10.1) L Iron Level 36 ug/dL (50-175) L Total Iron Binding Capacity 121 ug/dL (250-450) L Percent Iron Saturation 30 % (15-50) Unsaturated Iron Binding 85 ug/dL (112-346) L Ferritin 375 NG/ML (8-388) Carcinoembryonic Antigen Pending Vitamin B12 Level 1619 PG/ML (193-986) H Folate 17.3 NG/ML (8.6-58.9) Thyroid Stimulating Hormone (TSH) 0.547 uiU/mL (0.358-3.740) Free Thyroxine 1.29 NG/DL (0.76-1.46) Current Medications Medications (Trade) Dose Ordered Sig/Angelica Route PRN Reason Start Time Stop Time Status Last Admin Dose Admin Acetaminophen (Tylenol) 650 mg Q4H PRN ORAL Mild Pain (Pain Scale 1-3) 05/23/18 18:15 06/22/18 18:14 05/28/18 01:25 Cefoxitin Sodium 1 gm/Dextrose 55 ml @ 110 mls/hr ONCE PRN IV button maker to GI 05/31/18 08:00 05/31/18 14:00 Dextrose (Dextrose 50%) 25 ml Q30M PRN IV Hypoglycemia 05/23/18 18:15 06/22/18 18:14 Dextrose (Dextrose 50%) 50 ml Q30M PRN IV Hypoglycemia 05/23/18 18:15 06/22/18 18:14 Diphenhydramine HCl (Benadryl) 25 mg Q6H PRN ORAL Itching/Pruritis 05/23/18 18:15 06/22/18 18:14 Docusate Sodium (Colace) 100 mg EVERY 12 HOURS ORAL 05/23/18 21:00 06/22/18 20:59 05/30/18 09:12 Heparin Sodium (Porcine) (Heparin 5000 units/ml) 5,000 units EVERY 12 HOURS SUBQ 05/23/18 21:00 06/22/18 20:59 05/30/18 09:13 Iopamidol (Isovue-300 100ml) 100 ml NOW PRN INJ Radiology Procedure 05/23/18 14:15 Minoxidil (Loniten) 2.5 mg Q12HR ORAL 05/28/18 13:37 06/27/18 13:36 05/30/18 09:12 Pantoprazole (Protonix) 40 mg DAILY ORAL 05/24/18 09:00 06/23/18 08:59 05/30/18 09:12 Sodium 1,000 ml @ 75 mls/hr [id number] IV 05/23/18 19:30 06/22/18 19:29 05/30/18 05:23 Joce Tamayo MD May 30, 2018 12:39
--- NOTE | 2018-05-30 13:30 | NUR ---
TRANSFER TO FLOOR: Patient transferred to 4E, per Dr. Clifton. Report given to VAISHALI Avila. Belongings and medications given to VAISHALI Avila. Family and or S/O informed of transfer. On belonging list, pants and shirt are listed but unable to find them anywhere.
--- NOTE | 2018-05-30 13:43 | NUR ---
NURSE NOTES: Received patient from Saray RN, patient transferred from telemetry to room 412-2, belongings reviewed and patient shirt and pants were not transferred to the floor, operations and intelligence assistant said she would put in a report, patient oriented to room, no distress noted, bed is locked and in lowest position, call light within reach, patient kept on 2LPM O2 via NC, will continue to monitor.
[2018-05-30] MEDS ORDERED: cefOXitin Sod 1 GM in D5W 55 ML IV SCH (13:47)
[2018-05-30] MEDS ORDERED: Isovue-300 100ml vial INJ PRN (14:15)
[2018-05-30 16:00] VITALS: BP 158/87
--- NOTE | 2018-05-30 19:14 | NUR ---
NURSE NOTES: HAND-OFF: Report given to Janki TOM.
--- NOTE | 2018-05-30 19:25 | NUR ---
NURSE NOTES: Received patient in bed sleeping arousable to tactile stimuli. No signs of respiratory distress noted. On oxygen at 2L via nasal cannula. IV line intact and fluids running at 75 cc/hr. Bed in lowest position and locked. Call light within reach. Will continue to monitor.
[2018-05-30 20:00] VITALS: BP 155/96
[2018-05-31] VITALS (9 sets, daily range): BP systolic 135–176; BP diastolic 64–100
--- NOTE | 2018-05-31 01:46 | NUR ---
HAND-OFF: Report given to VAISHALI Medrano.
--- NOTE | 2018-05-31 01:58 | NUR ---
NURSE NOTES: Received patient sleeping, no s/s of distress, on O2@ 2L via NC. will continue to monitor.
[2018-05-31 07:08] LABS: INR 1.1 (0.9-1.1)
--- NOTE | 2018-05-31 07:10 | NUR ---
HAND-OFF: Report given to Austin TOM.
--- NOTE | 2018-05-31 07:10 | NUR ---
NURSE NOTES: Received patient from Mitchell RN, patient remains NPO, EGD and possible feeding tube scheduled for 11AM, no distress noted, bed is locked and in lowest position, will continue to monitor.
[2018-05-31 07:18] LABS: BASOPHILS % (AUTO) 0.6 % (0.0-2.0); EOSINOPHILS % (AUTO) 2.9 % (0.0-3.0); HEMATOCRIT 38.4 % (42.0-52.0); HEMOGLOBIN 13.2 G/DL (14.2-18.0); LYMPHOCYTES % (AUTO) 30.2 % (20.0-45.0); MEAN CORPUSCULAR VOLUME 89 FL (80-99); MONOCYTES % (AUTO) 5.5 % (1.0-10.0); NEUTROPHILS % (AUTO) 60.9 % (45.0-75.0); PLATELET COUNT 231 K/UL (150-450); RED BLOOD COUNT 4.32 M/UL (4.70-6.10); RED CELL DISTRIBUTION WIDTH 11.5 % (11.6-14.8); WHITE BLOOD COUNT 5.1 K/UL (4.8-10.8)
[2018-05-31] MEDS ORDERED: cefOXitin Sod 1 GM in D5W 55 ML IV PRN (08:00)
[2018-05-31 08:02] LABS: ANION GAP 11 mmol/L (5-15); BLOOD UREA NITROGEN 12 mg/dL (7-18); CALCIUM 8.7 MG/DL (8.5-10.1); CARBON DIOXIDE 22 MMOL/L (21-32); CHLORIDE 104 MMOL/L (98-107); CREATININE 1.1 MG/DL (0.55-1.30); POTASSIUM 4.1 MMOL/L (3.5-5.1); SODIUM 137 MMOL/L (136-145)
[2018-05-31] MEDS: Docusate 100mg cap ORAL SCH ×2 (08:55→21:03)
[2018-05-31] MEDS: Minoxidil 2.5mg tab ORAL SCH ×2 (08:55→21:03)
[2018-05-31] MEDS: Heparin 5000 units/ml inj SUBQ SCH ×2 (08:55→21:08)
--- NOTE | 2018-05-31 10:09 | Infectious Diseases Prog Note ---
Assessment/Plan Assessment/Plan antibiotics : none A 1. serratia UTI s/p rx 2. renal failure improving 3. dementia 4. pneumonia s/p rx 5. diabetes mellitus P 1. observe off antibiotics Subjective ROS Limited/Unobtainable: Yes Allergies: Coded Allergies: No Known Allergies (Verified , 06/04/07) Objective Vital Signs Last 24 Hour Vital Signs Date Time Temp Pulse Resp B/P (MAP) Pulse Ox O2 Delivery O2 Flow Rate FiO2 05/31/18 08:15 Nasal Cannula 2.0 05/31/18 08:00 98.4 100 20 135/64 (87) 95 05/31/18 04:00 98.5 71 19 159/99 (119) 94 05/31/18 00:00 99.2 69 20 157/89 (111) 93 05/30/18 21:13 155/96 05/30/18 21:00 Nasal Cannula 2.0 05/30/18 20:00 98.1 72 20 155/96 (115) 94 05/30/18 16:00 98.1 73 20 158/87 (110) 92 05/30/18 12:00 97.6 68 20 162/92 (115) 94 Height (Feet): 5 Height (Inches): 6.00 Weight (Pounds): 147 Respiratory/Chest: lungs clear Cardiovascular: normal rate, regular rhythm, no gallop/murmur Abdomen: soft, non tender Extremities: no edema Laboratory Tests Test 05/31/18 05:30 White Blood Count 5.1 K/UL (4.8-10.8) Red Blood Count 4.32 M/UL (4.70-6.10) L Hemoglobin 13.2 G/DL (14.2-18.0) L Hematocrit 38.4 % (42.0-52.0) L Mean Corpuscular Volume 89 FL (80-99) Mean Corpuscular Hemoglobin 30.5 PG (27.0-31.0) Mean Corpuscular Hemoglobin Concent 34.2 G/DL (32.0-36.0) Red Cell Distribution Width 11.5 % (11.6-14.8) L Platelet Count 231 K/UL (150-450) Mean Platelet Volume 6.5 FL (6.5-10.1) Neutrophils (%) (Auto) 60.9 % (45.0-75.0) Lymphocytes (%) (Auto) 30.2 % (20.0-45.0) Monocytes (%) (Auto) 5.5 % (1.0-10.0) Eosinophils (%) (Auto) 2.9 % (0.0-3.0) Basophils (%) (Auto) 0.6 % (0.0-2.0) Prothrombin Time 11.2 SEC (9.30-11.50) Prothromb Time International Ratio 1.1 (0.9-1.1) Activated Partial Thromboplast Time 33 SEC (23-33) Sodium Level 137 MMOL/L (136-145) Potassium Level 4.1 MMOL/L (3.5-5.1) Chloride Level 104 MMOL/L (98-107) Carbon Dioxide Level 22 MMOL/L (21-32) Anion Gap 11 mmol/L (5-15) Blood Urea Nitrogen 12 mg/dL (7-18) Creatinine 1.1 MG/DL (0.55-1.30) Estimat Glomerular Filtration Rate mL/min (>60) Glucose Level 88 MG/DL (74-106) Calcium Level 8.7 MG/DL (8.5-10.1) Current Medications Medications (Trade) Dose Ordered Sig/Angelica Route PRN Reason Start Time Stop Time Status Last Admin Dose Admin Acetaminophen (Tylenol) 650 mg Q4H PRN ORAL Mild Pain (Pain Scale 1-3) 05/30/18 14:15 06/22/18 18:14 Dextrose (Dextrose 50%) 25 ml Q30M PRN IV Hypoglycemia 05/30/18 14:15 06/22/18 18:14 Dextrose (Dextrose 50%) 50 ml Q30M PRN IV Hypoglycemia 05/30/18 14:15 06/22/18 18:14 Diphenhydramine HCl (Benadryl) 25 mg Q6H PRN ORAL Itching/Pruritis 05/30/18 13:47 06/22/18 13:46 Docusate Sodium (Colace) 100 mg EVERY 12 HOURS ORAL 05/30/18 21:00 06/22/18 20:59 05/30/18 21:13 Heparin Sodium (Porcine) (Heparin 5000 units/ml) 5,000 units EVERY 12 HOURS SUBQ 05/30/18 21:00 06/22/18 20:59 Minoxidil (Loniten) 2.5 mg Q12HR ORAL 05/30/18 21:00 06/27/18 13:36 05/30/18 21:13 Pantoprazole (Protonix) 40 mg DAILY ORAL 05/31/18 09:00 06/23/18 08:59 Sodium 1,000 ml @ 75 mls/hr [id number] IV 05/30/18 13:45 06/22/18 19:29 05/30/18 22:22 Daiana Driver MD May 31, 2018 10:09
--- NOTE | 2018-05-31 11:15 | Anethesia Preoperative Eval ---
Anesthesia Pre-op PMH/ROS General Date of Evaluation: May 31, 2018 Time of Evaluation: 11:11 Anesthesiologist: Ada Weaver CRNA ASA Score: ASA 3 Mallampati Score Class I : Soft palate, uvula, fauces, pillars visible Class II: Soft palate, uvula, fauces visible Class III: Soft palate, base of uvula visible Class IV: Only hard plate visible Mallampati Classification: Class II Surgeon: Rayray Diagnosis: abdominal pain Surgical Procedure: PEG placement Anesthesia History: none Social History: alcohol use Family History: no anesthesia problems Allergies: Coded Allergies: No Known Allergies (Verified , 06/04/07) Medications: see eMAR Patient NPO?: Yes NPO Date: May 31, 2018 NPO Time: 00:00 Past Medical History Cardiovascular: Reports: HTN; Denies: CAD, FL, valve dz, arrhythmia, other Pulmonary: Reports: other - pneumomina, acute respiratory failure, 2LPM NC; Denies: asthma, COPD, LAMINE Gastrointestinal/Genitourinary: Reports: GERD, other - Abdominal pain, enteritits, ileus; Denies: CRI, ESRD Neurologic/Psychiatric: Reports: dementia, CVA; Denies: depression/anxiety, TIA, other Endocrine: Reports: hypothyroidism; Denies: DM, steroids, other HEENT: Denies: cataract (L), cataract (R), glaucoma, LOVELOCK (L), LOVELOCK (R), other Hematology/Immune: Reports: anemia; Denies: DVT, bleeding disorder, other Musculoskeletal/Integumentary: Denies: OA, RA, DJD, DDD, edema, other PMH Narrative: as above PSxH Narrative: see H & P Anesthesia Pre-op Phys. Exam Physician Exam Last Vital Signs Date Time Temp Pulse Resp B/P (MAP) Pulse Ox O2 Delivery O2 Flow Rate FiO2 05/31/18 08:15 Nasal Cannula 2.0 05/31/18 08:00 98.4 100 20 135/64 (87) 95 05/30/18 09:26 32 Constitutional: NAD Neurologic: other - not oriented Cardiovascular: RRR Respiratory: other - NC 02 Gastrointestinal: S/NT/ND, other Airway Exam Mallampati Score: Class II MO: full Neck: short neck TMD: > 3 FB ROM: full Teeth: missing Dentures: upper, lower Anesthesia Pre-op A/P Labs Hematology Test 05/31/18 05:30 White Blood Count 5.1 K/UL (4.8-10.8) Red Blood Count 4.32 M/UL (4.70-6.10) L Hemoglobin 13.2 G/DL (14.2-18.0) L Hematocrit 38.4 % (42.0-52.0) L Mean Corpuscular Volume 89 FL (80-99) Mean Corpuscular Hemoglobin 30.5 PG (27.0-31.0) Mean Corpuscular Hemoglobin Concent 34.2 G/DL (32.0-36.0) Red Cell Distribution Width 11.5 % (11.6-14.8) L Platelet Count 231 K/UL (150-450) Mean Platelet Volume 6.5 FL (6.5-10.1) Neutrophils (%) (Auto) 60.9 % (45.0-75.0) Lymphocytes (%) (Auto) 30.2 % (20.0-45.0) Monocytes (%) (Auto) 5.5 % (1.0-10.0) Eosinophils (%) (Auto) 2.9 % (0.0-3.0) Basophils (%) (Auto) 0.6 % (0.0-2.0) Coagulation Test 05/31/18 05:30 Prothrombin Time 11.2 SEC (9.30-11.50) Prothromb Time International Ratio 1.1 (0.9-1.1) Activated Partial Thromboplast Time 33 SEC (23-33) Chemistry Test 05/31/18 05:30 Sodium Level 137 MMOL/L (136-145) Potassium Level 4.1 MMOL/L (3.5-5.1) Chloride Level 104 MMOL/L (98-107) Carbon Dioxide Level 22 MMOL/L (21-32) Anion Gap 11 mmol/L (5-15) Blood Urea Nitrogen 12 mg/dL (7-18) Creatinine 1.1 MG/DL (0.55-1.30) Estimat Glomerular Filtration Rate mL/min (>60) Glucose Level 88 MG/DL (74-106) Calcium Level 8.7 MG/DL (8.5-10.1) Studies Pre-op Studies: EKG - NSR Risk Assessment & Plan Status Change Before Surgery: No Pre-Antibiotics Drug: Ada Roberts CRNA May 31, 2018 11:15
--- NOTE | 2018-05-31 11:38 | General Progress Note ---
Assessment/Plan Assessment/Plan Pneumonia - IV Abx Serratia UTI - IV Abx Dysphagia - needs swallow eval. Done. DDW Speech therapy. PEG toDAY. Pre renal azotemia improving with IVF. Subjective Allergies: Coded Allergies: No Known Allergies (Verified , 06/04/07) Subjective Confused. Objective Last 24 Hour Vital Signs Date Time Temp Pulse Resp B/P (MAP) Pulse Ox O2 Delivery O2 Flow Rate FiO2 05/31/18 08:15 Nasal Cannula 2.0 05/31/18 08:00 98.4 100 20 135/64 (87) 95 05/31/18 04:00 98.5 71 19 159/99 (119) 94 05/31/18 00:00 99.2 69 20 157/89 (111) 93 05/30/18 21:13 155/96 05/30/18 21:00 Nasal Cannula 2.0 05/30/18 20:00 98.1 72 20 155/96 (115) 94 05/30/18 16:00 98.1 73 20 158/87 (110) 92 05/30/18 12:00 97.6 68 20 162/92 (115) 94 Intake and Output 05/30/18 05/31/18 19:00 07:00 Intake Total 450 ml Output Total 1000 ml 950 ml Balance -1000 ml -500 ml IV Total 450 ml Output Urine Total 1000 ml 950 ml # Voids 2 # Bowel Movements 1 3 Laboratory Tests 05/31/18 05:30: White Blood Count 5.1, Red Blood Count 4.32L, Hemoglobin 13.2L, Hematocrit 38.4L , Mean Corpuscular Volume 89, Mean Corpuscular Hemoglobin 30.5, Mean Corpuscular Hemoglobin Concent 34.2, Red Cell Distribution Width 11.5L, Platelet Count 231, Mean Platelet Volume 6.5, Neutrophils (%) (Auto) 60.9, Lymphocytes (%) (Auto) 30.2, Monocytes (%) (Auto) 5.5, Eosinophils (%) (Auto) 2.9, Basophils (%) (Auto) 0.6, Prothrombin Time 11.2, Prothromb Time International Ratio 1.1, Activated Partial Thromboplast Time 33, Sodium Level 137, Potassium Level 4.1, Chloride Level 104, Carbon Dioxide Level 22, Anion Gap 11, Blood Urea Nitrogen 12, Creatinine 1.1, Estimat Glomerular Filtration Rate , Glucose Level 88, Calcium Level 8.7 Height (Feet): 5 Height (Inches): 6.00 Weight (Pounds): 147 Objective CV RR Lungs B Marcchi Abd SNT. BS + E No CCE Treasure Soriano MD May 31, 2018 11:38
[2018-05-31] MEDS ORDERED: Propofol 200mg/20ml IV ONE (12:00)
[2018-05-31] MEDS ORDERED: NS 500ML IVPB ONE (12:05)
[2018-05-31] MEDS ORDERED: cefOXitin 1gm Inj ONE (12:10)
[2018-05-31] MEDS ORDERED: cefOXitin 1gm Inj IVP ONE (12:10)
--- NOTE | 2018-05-31 12:10 | Pre-Procedure Note/Attestation ---
Pre-Procedure Note/Attestation Complete Prior to Procedure Planned Procedure: not applicable Procedure Narrative: egd/peg Indications for Procedure Pre-Operative Diagnosis: dysphagia Attestation I attest that I discussed the nature of the procedure; its benefits; risks and complications; and alternatives (and the risks and benefits of such alternatives ), prior to the procedure, with the patient (or the patient's legal aircraft sales representative). I attest that, if there was a reasonable possibility of needing a blood transfusion, the patient (or the patient's legal aircraft sales representative) was given the [facility] standardized written summary, pursuant to the Bartolo Aileen Blood Safety Act ([place] Health and Safety Code # 1645, as amended). I attest that I re-evaluated the patient just prior to the surgery and that there has been no change in the patient's H&P, except as documented below: Gonzalo Salinas MD May 31, 2018 12:10
--- NOTE | 2018-05-31 12:11 | General Progress Note ---
Assessment/Plan Problem List: (1) Hypoxia ICD Codes: R09.02 - Hypoxemia SNOMED: 636339548 (2) Abdominal distention ICD Codes: R14.0 - Abdominal distension (gaseous) SNOMED: 55927339 (3) Anemia ICD Codes: D64.9 - Anemia, unspecified SNOMED: 156056172 (4) Abdominal pain ICD Codes: R10.9 - Unspecified abdominal pain SNOMED: 18259606 Qualifiers: Qualified Codes: R10.84 - Generalized abdominal pain (5) Encounter for PEG (percutaneous endoscopic gastrostomy) ICD Codes: Z43.1 - Encounter for attention to gastrostomy SNOMED: 651119381, 267623470 Assessment/Plan plan for PEG placement today Subjective ROS Limited/Unobtainable: No Allergies: Coded Allergies: No Known Allergies (Verified , 06/04/07) Objective Last 24 Hour Vital Signs Date Time Temp Pulse Resp B/P (MAP) Pulse Ox O2 Delivery O2 Flow Rate FiO2 05/31/18 08:15 Nasal Cannula 2.0 05/31/18 08:00 98.4 100 20 135/64 (87) 95 05/31/18 04:00 98.5 71 19 159/99 (119) 94 05/31/18 00:00 99.2 69 20 157/89 (111) 93 05/30/18 21:13 155/96 05/30/18 21:00 Nasal Cannula 2.0 05/30/18 20:00 98.1 72 20 155/96 (115) 94 05/30/18 16:00 98.1 73 20 158/87 (110) 92 Intake and Output 05/30/18 05/31/18 19:00 07:00 Intake Total 450 ml Output Total 1000 ml 950 ml Balance -1000 ml -500 ml IV Total 450 ml Output Urine Total 1000 ml 950 ml # Voids 2 # Bowel Movements 1 3 Laboratory Tests 05/31/18 05:30: White Blood Count 5.1, Red Blood Count 4.32L, Hemoglobin 13.2L, Hematocrit 38.4L , Mean Corpuscular Volume 89, Mean Corpuscular Hemoglobin 30.5, Mean Corpuscular Hemoglobin Concent 34.2, Red Cell Distribution Width 11.5L, Platelet Count 231, Mean Platelet Volume 6.5, Neutrophils (%) (Auto) 60.9, Lymphocytes (%) (Auto) 30.2, Monocytes (%) (Auto) 5.5, Eosinophils (%) (Auto) 2.9, Basophils (%) (Auto) 0.6, Prothrombin Time 11.2, Prothromb Time International Ratio 1.1, Activated Partial Thromboplast Time 33, Sodium Level 137, Potassium Level 4.1, Chloride Level 104, Carbon Dioxide Level 22, Anion Gap 11, Blood Urea Nitrogen 12, Creatinine 1.1, Estimat Glomerular Filtration Rate , Glucose Level 88, Calcium Level 8.7 Height (Feet): 5 Height (Inches): 6.00 Weight (Pounds): 147 General Appearance: lethargic EENT: normal ENT inspection Neck: supple Cardiovascular: normal rate Respiratory/Chest: decreased breath sounds Abdomen: normal bowel sounds, non tender, soft Extremities: non-tender Gonzalo Salinas MD May 31, 2018 12:11
--- NOTE | 2018-05-31 12:13 | NUR ---
ST NOTE: ST WEEKLY AND D/C SUMMARY: PT DID NOT MEET PO INTAKE GOALS. NURSING STAFF MET ASPIRATION PRECAUTIONS GOALS. G-TUBE WAS RECOMMENDED AFTER BARIUM SWALLOW STUDY DUE TO PT'S OVERALL WEAKNESS AND POOR PO INTAKE. FOLLOWED UP PT'S CONDITIONS. PER RNMATTHEW, PT IS SCHEDULED FOR PEG TODAY REFER PT TO HEALTHCARE RECRUITER AT DISCHARGE FACILITY RE: SWALLOW TX D/C FROM SKILLED ST SERVICE. D/W THE STAFF.
--- NOTE | 2018-05-31 12:21 | Endoscopy Procedure Note ---
Endoscopy Procedure Note General Indication for Procedure: dysohagia Procedures Performed: EGD, PEG Operative Findings/Diagnosis: gastritis Specimen: yes Pt Tolerated Procedure Well: Yes Estimated Blood Loss: none Anesthesia Anesthesiologist: taniya Anesthesia: MAC Inserted Devices Implant(s) used?: No GI Core Measures 50 yrs or older w/o bx or poly: Not Applicable 10yrs. F/U not recommended: Not Applicable Gonzalo Salinas MD May 31, 2018 12:21
--- NOTE | 2018-05-31 12:36 | Immediate Post-Op Evaluation ---
Immediate Post-Op Evalulation Immediate Post-Op Evalulation Procedure: PEG placement Date of Evaluation: May 31, 2018 Time of Evaluation: 12:30 IV Fluids: 0.9 NS 100 ml Blood Pressure Systolic: 178 Blood Pressure Diastolic: 100 Pulse Rate: 74 Respiratory Rate: 22 O2 Sat by Pulse Oximetry: 98 Temperature (Fahrenheit): 97.5 Nausea: No Vomiting: No Patient Status: awake, patent Hydration Status: adequate Drug: cefoxitin 1000 mg Given Within 1 Hr of Incision: Yes Time Given: 12:10 Ada Weaver CRNA May 31, 2018 12:36
--- NOTE | 2018-05-31 14:13 | 48 Hour Post Anesthesia Eval ---
Post Anesthesia Evaluation Procedure: PEG placement Date of Evaluation: May 31, 2018 Time of Evaluation: 14:11 Blood Pressure Systolic: 175 0: 99 Pulse Rate: 74 Respiratory Rate: 22 Temperature (Fahrenheit): 98.0 O2 Sat by Pulse Oximetry: 98 Airway: patent Nausea: No Vomiting: No Pain Intensity: 0 Hydration Status: adequate Cardiopulmonary Status: stable Mental Status/LOC: patient returned to baseline Follow-up Care/Observations: per hospitalist Post-Anesthesia Complications: none Follow-up care needed: N/A Ada Weaver CRNA May 31, 2018 14:13
--- NOTE | 2018-05-31 17:15 | Procedure Note ---
DATE OF PROCEDURE: 05/31/2018 SURGEON: Gonzalo Salinas M.D. ANESTHESIOLOGIST: Colette DEVINE. REFERRING PHYSICIAN: Treasure Soriano M.D. PROCEDURE: Upper endoscopy with PEG placement. ANESTHESIA: Per Colette DEVINE. INSTRUMENT: Olympus adult flexible upper endoscope. INDICATION: Dysphagia. The procedure, risks, benefits, and possible consequences, including hemorrhage, aspiration, perforation and infection, and alternative treatments, were explained to the patient/legal guardian by Dr. Gonzalo Salinas and the patient/legal guardian understood and accepted these risks. DESCRIPTION OF PROCEDURE: After informed consent was obtained and the patient was adequately sedated, Olympus upper endoscope was advanced from the mouth into the second portion of duodenum and retroflexion was performed in the stomach. The patient had evidence of diffuse gastritis. Random biopsy from antrum was obtained to rule out H. pylori infection. At this time, under endoscopic guidance under sterile condition, a 20-German pull type of G-tube was successfully placed in the epigastric area. The distance from the tip of the tube to skin was about 2.5 cm in size. The patient tolerated the procedure very well without any complication. SUMMARY OF FINDINGS: 1. Gastritis, status post biopsy. 2. Status post successful PEG placement. RECOMMENDATIONS: Abdominal binder. Elevate the head of bed at all times. G-tube flush. G-tube care. Start tube feeding later today. The patient received a dose of antibiotics prior to this procedure. I want to thank Dr. Soriano for this kind referral. Gonzalo Salinas M.D. DR: Hortencia JOB#: [id number] CC: Treasure Soriano M.D.; Fax#: [phone]
[2018-05-31] MEDS: 1/2NS w/KCl 20mEq 1000ml 1,000 ML IV SCH (17:26)
--- NOTE | 2018-05-31 19:30 | NUR ---
NURSE NOTES: RECEIVED PATIENT LYING IN BED, AWAKE, NON VERBAL, ALL NEEDS ANTICIPATED AND MET BY NURSING STAFF. NO SIGNS AND SYMPTOMS OF ACUTE CARDIO RESPIRATORY DISTRESS/SHORTNESS OF BREATH, NO PERIPHERAL EDEMA NOTED. S/P EGD/PEG PLACEMENT, ABDOMINAL BINDER INTACT, TOLERATING G TUBE FEEDING, VITAL AF AT 25ML PER HOUR, GOAL 60ML/HR, NO GASTRIC RESIDUAL ASPIRATED VIA G TUBE, NO REPORT OF N/V. PM CARE PROVIDED, REPOSITIONED FOR COMFORT/PRESSURE RELIEF, TOLERATED WELL. SIDE RAILS UP X3/BED IN LOWEST POSITION FOR SAFETY. CALL LIGHT WITHIN REACH. FREQUENT ROUNDING FOR SAFETY/NEEDS.
--- NOTE | 2018-05-31 19:51 | NUR ---
HAND-OFF: Report given to Katy BEDOLLA, endorsed that tube feeding not yet at goal rate..
--- NOTE | 2018-05-31 20:02 | NUR ---
CASE MANAGEMENT: REVIEW SI: HYPOXIA . DYSPHAGIA PEG PLACEMENT 05/31 T 98.0 HR 76 RR 22 BP 176/99 SAT 95% NC/2L H/H 13.2/38.4 IS: PROTONIX PO QD MINOXIDIL PO Q12HR NS IVF @75ML/HR GT FEEDING VITAL AF 1.2 @60ML/HR MED/SURG STATUS DCP: PATIENT IS FROM [facility]
[2018-06-01] VITALS: BP 160/87
[2018-06-01 04:00] VITALS: BP 159/84
[2018-06-01] MEDS: 1/2NS w/KCl 20mEq 1000ml 1,000 ML IV SCH (05:45)
--- NOTE | 2018-06-01 06:36 | NUR ---
NURSE NOTES: RESTED WELL, NO SIGNIFICANT CHANGE OF CONDITION NOTED THROUGHOUT THE NIGHT. SAFETY MAINTAINED. NAD,.
[2018-06-01 06:56] LABS: BASOPHILS % (AUTO) 0.2 % (0.0-2.0); EOSINOPHILS % (AUTO) 2.5 % (0.0-3.0); HEMATOCRIT 38.3 % (42.0-52.0); LYMPHOCYTES % (AUTO) 24.6 % (20.0-45.0); MEAN CORPUSCULAR VOLUME 89 FL (80-99); MONOCYTES % (AUTO) 6.4 % (1.0-10.0); NEUTROPHILS % (AUTO) 66.2 % (45.0-75.0); PLATELET COUNT 221 K/UL (150-450); RED CELL DISTRIBUTION WIDTH 11.2 % (11.6-14.8); WHITE BLOOD COUNT 5.6 K/UL (4.8-10.8)
[2018-06-01 06:58] LABS: ANION GAP 9 mmol/L (5-15); BLOOD UREA NITROGEN 16 mg/dL (7-18); CALCIUM 8.9 MG/DL (8.5-10.1); CARBON DIOXIDE 24 MMOL/L (21-32); CHLORIDE 105 MMOL/L (98-107); CREATININE 1.2 MG/DL (0.55-1.30); SODIUM 138 MMOL/L (136-145)
--- NOTE | 2018-06-01 07:45 | NUR ---
NURSE NOTES: Received patient on bed, asleep. IV site intact and patent. Gtube intact and patent. Bed in low and locked position, call light in reach. No signs of respiratory distress or pain. Room board updated, will continue to monitor.
[2018-06-01 08:00] VITALS: BP 164/90
[2018-06-01] MEDS: Docusate 100mg/10ml Liq GT SCH ×2 (09:11→21:10)
[2018-06-01] MEDS: Minoxidil 2.5mg tab ORAL SCH ×2 (09:12→21:10)
[2018-06-01] MEDS: Heparin 5000 units/ml inj SUBQ SCH ×2 (09:14→21:12)
--- NOTE | 2018-06-01 10:32 | NUR ---
RD ASSESSMENT & RECOMMENDATIONS SEE CARE ACTIVITY FOR COMPLETE ASSESSMENT DAILY ESTIMATED NEEDS: Needs based on DM/ 67kg 25-30 kcals/kg total kcals 1-1.3 g protein/kg 67-87 g total protein 25-30 mL/kg total fluid mLs NUTRITION DIAGNOSIS: Swallowing difficulty R/T dysphagia, h/o CVA, lethargy as evidenced by s/p VSS, CHAIN PULLER recommends NPO, fpc nonoral feedings, s/p PEG placement, on GT feeding. CURRENT TF:Vital AF 1.2 @ 60ml/hr x 24 hrs ENTERAL NUTRITION RECOMMENDATIONS: Glucerna 1.2 @ 60ml/hr x 24 hrs to provide 1440ml, 1728kcal, 86g prot, 1159ml free water * Rec TF change to Glucerna 1.2- elemental formula of Vital AF 1.2 is not indicated. * Initiate Glucerna 1.2 @ 20ml/hr x 6 hrs, advance 10ml q 4-6 hrs as tolerated to goal rate. * HOB over 30 degrees/ water flush per MD ADDITIONAL RECOMMENDATIONS: * Calibrated bedscale wt for accurate CBW * Monitor lytes daily w/ TF, replete as needed -rec to check f/up phos and mag * A1C for eval of glycemic control- h/o DM * Monitor BGs closely w/ TF, need for SSI - h/o DM
--- NOTE | 2018-06-01 11:06 | General Progress Note ---
Assessment/Plan Assessment/Plan Pneumonia - IV Abx Serratia UTI - IV Abx Dysphagia - needs swallow eval. Done. DDW Speech therapy. Post PEG.. Pre renal azotemia improving with IVF. Subjective Allergies: Coded Allergies: No Known Allergies (Verified , 06/04/07) Subjective Confused. Post PEG. Objective Last 24 Hour Vital Signs Date Time Temp Pulse Resp B/P (MAP) Pulse Ox O2 Delivery O2 Flow Rate FiO2 06/01/18 09:12 164/90 06/01/18 09:00 Nasal Cannula 2.0 06/01/18 08:00 97.8 79 18 164/90 (114) 95 06/01/18 04:00 97.9 82 18 159/84 (109) 94 06/01/18 00:00 97.8 75 17 160/87 (111) 96 05/31/18 21:03 142/79 05/31/18 21:00 Nasal Cannula 2.0 05/31/18 20:00 97.8 80 17 155/86 (109) 98 05/31/18 16:00 98.2 76 20 159/88 (111) 95 05/31/18 14:13 74 22 98 05/31/18 12:51 98.0 74 22 175/99 98 Nasal Cannula 2 05/31/18 12:40 74 22 166/100 98 Nasal Cannula 2 05/31/18 12:36 74 22 98 05/31/18 12:35 74 22 176/99 98 Nasal Cannula 2 05/31/18 12:30 97.5 74 22 173/100 98 Nasal Cannula 2 Intake and Output 05/31/18 06/01/18 18:59 06:59 Intake Total 200 ml 1345 ml Output Total 300 ml 750 ml Balance -100 ml 595 ml Free Water 210 ml IV Total 200 ml 675 ml Tube Feeding 460 ml Output Urine Total 300 ml 750 ml # Voids 3 # Bowel Movements 1 1 Laboratory Tests 06/01/18 05:00: White Blood Count 5.6, Red Blood Count 4.30L, Hemoglobin 13.0L, Hematocrit 38.3L , Mean Corpuscular Volume 89, Mean Corpuscular Hemoglobin 30.4, Mean Corpuscular Hemoglobin Concent 34.1, Red Cell Distribution Width 11.2L, Platelet Count 221, Mean Platelet Volume 6.1L, Neutrophils (%) (Auto) 66.2, Lymphocytes (%) (Auto) 24.6, Monocytes (%) (Auto) 6.4, Eosinophils (%) (Auto) 2.5, Basophils (%) (Auto) 0.2, Sodium Level 138, Potassium Level 4.0, Chloride Level 105, Carbon Dioxide Level 24, Anion Gap 9, Blood Urea Nitrogen 16, Creatinine 1.2, Estimat Glomerular Filtration Rate , Glucose Level 147H, Calcium Level 8.9 Height (Feet): 5 Height (Inches): 6.00 Weight (Pounds): 147 Objective CV RR Lungs B Nadya Bridges SNT. BS +. New PEG in. E No CCE Treasure Soriano MD Jun 01, 2018 11:06
--- NOTE | 2018-06-01 11:50 | Infectious Diseases Prog Note ---
Assessment/Plan Assessment/Plan antibiotics : none A 1. serratia UTI s/p rx 2. renal failure improving 3. dementia 4. pneumonia s/p rx 5. diabetes mellitus P 1. observe off antibiotics Subjective Constitutional: Denies: fever, chills Respiratory: Denies: shortness of breath, dry cough Gastrointestinal/Abdominal: Reports: diarrhea; Denies: nausea, vomiting Musculoskeletal: Denies: pain Allergies: Coded Allergies: No Known Allergies (Verified , 06/04/07) Objective Vital Signs Last 24 Hour Vital Signs Date Time Temp Pulse Resp B/P (MAP) Pulse Ox O2 Delivery O2 Flow Rate FiO2 06/01/18 09:12 164/90 06/01/18 09:00 Nasal Cannula 2.0 06/01/18 08:00 97.8 79 18 164/90 (114) 95 06/01/18 04:00 97.9 82 18 159/84 (109) 94 06/01/18 00:00 97.8 75 17 160/87 (111) 96 05/31/18 21:03 142/79 05/31/18 21:00 Nasal Cannula 2.0 05/31/18 20:00 97.8 80 17 155/86 (109) 98 05/31/18 16:00 98.2 76 20 159/88 (111) 95 05/31/18 14:13 74 22 98 05/31/18 12:51 98.0 74 22 175/99 98 Nasal Cannula 2 05/31/18 12:40 74 22 166/100 98 Nasal Cannula 2 05/31/18 12:36 74 22 98 05/31/18 12:35 74 22 176/99 98 Nasal Cannula 2 05/31/18 12:30 97.5 74 22 173/100 98 Nasal Cannula 2 Height (Feet): 5 Height (Inches): 6.00 Weight (Pounds): 147 Respiratory/Chest: lungs clear Cardiovascular: normal rate, regular rhythm, no gallop/murmur Abdomen: soft, non tender, other - GT Extremities: no edema Laboratory Tests Test 06/01/18 05:00 White Blood Count 5.6 K/UL (4.8-10.8) Red Blood Count 4.30 M/UL (4.70-6.10) L Hemoglobin 13.0 G/DL (14.2-18.0) L Hematocrit 38.3 % (42.0-52.0) L Mean Corpuscular Volume 89 FL (80-99) Mean Corpuscular Hemoglobin 30.4 PG (27.0-31.0) Mean Corpuscular Hemoglobin Concent 34.1 G/DL (32.0-36.0) Red Cell Distribution Width 11.2 % (11.6-14.8) L Platelet Count 221 K/UL (150-450) Mean Platelet Volume 6.1 FL (6.5-10.1) L Neutrophils (%) (Auto) 66.2 % (45.0-75.0) Lymphocytes (%) (Auto) 24.6 % (20.0-45.0) Monocytes (%) (Auto) 6.4 % (1.0-10.0) Eosinophils (%) (Auto) 2.5 % (0.0-3.0) Basophils (%) (Auto) 0.2 % (0.0-2.0) Sodium Level 138 MMOL/L (136-145) Potassium Level 4.0 MMOL/L (3.5-5.1) Chloride Level 105 MMOL/L (98-107) Carbon Dioxide Level 24 MMOL/L (21-32) Anion Gap 9 mmol/L (5-15) Blood Urea Nitrogen 16 mg/dL (7-18) Creatinine 1.2 MG/DL (0.55-1.30) Estimat Glomerular Filtration Rate mL/min (>60) Glucose Level 147 MG/DL (74-106) H Calcium Level 8.9 MG/DL (8.5-10.1) Current Medications Medications (Trade) Dose Ordered Sig/Angelica Route PRN Reason Start Time Stop Time Status Last Admin Dose Admin Acetaminophen (Tylenol) 650 mg Q4H PRN ORAL Mild Pain (Pain Scale 1-3) 05/30/18 14:15 06/22/18 18:14 Dextrose (Dextrose 50%) 25 ml Q30M PRN IV Hypoglycemia 05/30/18 14:15 06/22/18 18:14 Dextrose (Dextrose 50%) 50 ml Q30M PRN IV Hypoglycemia 05/30/18 14:15 06/22/18 18:14 Diphenhydramine HCl (Benadryl) 25 mg Q6H PRN ORAL Itching/Pruritis 05/30/18 13:47 06/22/18 13:46 Docusate Sodium (Colace) 100 mg EVERY 12 HOURS GT 06/01/18 09:30 07/01/18 09:29 06/01/18 09:11 Heparin Sodium (Porcine) (Heparin 5000 units/ml) 5,000 units EVERY 12 HOURS SUBQ 05/30/18 21:00 06/22/18 20:59 06/01/18 09:14 Lansoprazole (Prevacid) 30 mg DAILY GT 06/01/18 09:00 07/01/18 08:59 06/01/18 09:11 Minoxidil (Loniten) 2.5 mg Q12HR ORAL 05/30/18 21:00 06/27/18 13:36 06/01/18 09:12 Daiana Driver MD Jun 01, 2018 11:50
[2018-06-01 12:00] VITALS: BP 161/87
[2018-06-01 16:00] VITALS: BP 154/89
--- NOTE | 2018-06-01 17:04 | NUR ---
NURSE NOTES: Started new feeding Vital AF.
--- NOTE | 2018-06-01 18:18 | General Progress Note ---
Assessment/Plan Assessment/Plan Assessment/Plan Problem List: (1) Hypoxia ICD Codes: R09.02 - Hypoxemia SNOMED: 973932131 (2) Abdominal distention ICD Codes: R14.0 - Abdominal distension (gaseous) SNOMED: 83864178 (3) Anemia ICD Codes: D64.9 - Anemia, unspecified SNOMED: 748628066 (4) Abdominal pain ICD Codes: R10.9 - Unspecified abdominal pain SNOMED: 00263511 Qualifiers: Qualified Codes: R10.84 - Generalized abdominal pain (5) Encounter for PEG (percutaneous endoscopic gastrostomy) - anorexia ICD Codes: Z43.1 - Encounter for attention to gastrostomy Assessment/Plan Post op care Tube feeds Elevate HOB G tube care Subjective Allergies: Coded Allergies: No Known Allergies (Verified , 06/04/07) Subjective Feels OK no complaints s/p PEG Objective Last 24 Hour Vital Signs Date Time Temp Pulse Resp B/P (MAP) Pulse Ox O2 Delivery O2 Flow Rate FiO2 06/01/18 16:00 98.4 83 18 154/89 (110) 93 06/01/18 12:00 98.2 78 18 161/87 (111) 97 06/01/18 09:12 164/90 06/01/18 09:00 Nasal Cannula 2.0 06/01/18 08:00 97.8 79 18 164/90 (114) 95 06/01/18 04:00 97.9 82 18 159/84 (109) 94 06/01/18 00:00 97.8 75 17 160/87 (111) 96 05/31/18 21:03 142/79 05/31/18 21:00 Nasal Cannula 2.0 05/31/18 20:00 97.8 80 17 155/86 (109) 98 Intake and Output 05/31/18 06/01/18 19:00 07:00 Intake Total 330 ml 1215 ml Output Total 300 ml 750 ml Balance 30 ml 465 ml Free Water 30 ml 180 ml IV Total 275 ml 600 ml Tube Feeding 25 ml 435 ml Output Urine Total 300 ml 750 ml # Voids 3 # Bowel Movements 1 1 Laboratory Tests 06/01/18 05:00: White Blood Count 5.6, Red Blood Count 4.30L, Hemoglobin 13.0L, Hematocrit 38.3L , Mean Corpuscular Volume 89, Mean Corpuscular Hemoglobin 30.4, Mean Corpuscular Hemoglobin Concent 34.1, Red Cell Distribution Width 11.2L, Platelet Count 221, Mean Platelet Volume 6.1L, Neutrophils (%) (Auto) 66.2, Lymphocytes (%) (Auto) 24.6, Monocytes (%) (Auto) 6.4, Eosinophils (%) (Auto) 2.5, Basophils (%) (Auto) 0.2, Sodium Level 138, Potassium Level 4.0, Chloride Level 105, Carbon Dioxide Level 24, Anion Gap 9, Blood Urea Nitrogen 16, Creatinine 1.2, Estimat Glomerular Filtration Rate , Glucose Level 147H, Calcium Level 8.9 Height (Feet): 5 Height (Inches): 6.00 Weight (Pounds): 147 Objective Elderly Man, NAD NCAT supple CTA RR abd soft, ND, (+) PEG no edema Barbara Rothman MD Jun 01, 2018 18:18
--- NOTE | 2018-06-01 19:16 | NUR ---
HAND-OFF: Report given to CHIOMA Ramirez.
--- NOTE | 2018-06-01 19:30 | NUR ---
NURSE NOTES: RECEIVED PATIENT LYING IN BED, AWAKE, NON VERBAL, HEAD OF BED ELEVATED/ASPIRATION PRECAUTION. ALL NEEDS ANTICIPATED AND MET BY NURSING STAFF. TOLERATING 02 VIA NASAL CANULA, NO SIGNS AND SYMPTOMS OF ACUTE CARDIO RESPIRATORY DISTRESS/SHORTNESS OF BREATH, NO PERIPHERAL EDEMA NOTED. G TUBE INTACT, TOLERATING FEEDING, NO GASTRIC RESIDUAL ASPIRATED VIA G TUBE, NO REPORT OF VOMITING/DIARRHEA. PM CARE PROVIDED. SIDE RAILS UP X3/BED IN LOWEST POSITION FOR SAFETY. CALL LIGHT WITHIN REACH. FREQUENT ROUNDING FOR SAFETY/ NEEDS. NAD.
[2018-06-01 20:00] VITALS: BP 154/78
--- NOTE | 2018-06-01 22:37 | NUR ---
NURSE NOTES: RESTING ON ROUNDS, NO DISTRESS NOTED.
[2018-06-02] VITALS: BP 152/95
[2018-06-02 04:00] VITALS: BP 120/66
[2018-06-02 06:03] LABS: BASOPHILS % (AUTO) 0.5 % (0.0-2.0); HEMATOCRIT 36.1 % (42.0-52.0); HEMOGLOBIN 12.4 G/DL (14.2-18.0); LYMPHOCYTES % (AUTO) 26.3 % (20.0-45.0); MEAN CORPUSCULAR VOLUME 89 FL (80-99); MONOCYTES % (AUTO) 9.7 % (1.0-10.0); NEUTROPHILS % (AUTO) 61.6 % (45.0-75.0); PLATELET COUNT 249 K/UL (150-450); RED BLOOD COUNT 4.05 M/UL (4.70-6.10); RED CELL DISTRIBUTION WIDTH 11.5 % (11.6-14.8); WHITE BLOOD COUNT 6.1 K/UL (4.8-10.8)
--- NOTE | 2018-06-02 06:18 | NUR ---
NURSE NOTES: RESTED WELL, NO SIGNIFICANT CHANGE OF CONDITION NOTED THROUGHOUT THE NIGHT. SAFETY MAINTAINED. TOLERATING FEEDING, NO GASTRIC RESIDUAL ASPIRATED VIA G TUBE. NAD.
[2018-06-02 06:22] LABS: ANION GAP 6 mmol/L (5-15); BLOOD UREA NITROGEN 19 mg/dL (7-18); CALCIUM 8.9 MG/DL (8.5-10.1); CARBON DIOXIDE 27 MMOL/L (21-32); CHLORIDE 106 MMOL/L (98-107); CREATININE 1.2 MG/DL (0.55-1.30); POTASSIUM 3.8 MMOL/L (3.5-5.1); SODIUM 139 MMOL/L (136-145)
--- NOTE | 2018-06-02 07:30 | NUR ---
HAND-OFF: Report given to CHIOMA RICO.
[2018-06-02 08:00] VITALS: BP 149/86
--- NOTE | 2018-06-02 08:00 | NUR ---
NURSE NOTES: received patient A/A/Ox2, in bed with a G tube feeding with a goal of 60cc/hr. NO gastric residual noted. tolerating it well. abd binder in placed. HOB elevated. siderails are up x3. call light is within reach. will cont the plan of care.
[2018-06-02] MEDS: Docusate 100mg/10ml Liq GT SCH (08:47)
[2018-06-02] MEDS: Minoxidil 2.5mg tab ORAL SCH (08:49)
[2018-06-02] MEDS: Heparin 5000 units/ml inj SUBQ SCH (08:54)
--- NOTE | 2018-06-02 10:13 | NUR ---
NURSE NOTES: Received patient awake, verbally responsive. with 02 at 2LPM via NC. Denies any pain at this time. Call light made within reach. Will cont to monitor.
--- NOTE | 2018-06-02 10:38 | General Progress Note ---
Assessment/Plan Assessment/Plan Pneumonia - IV Abx Serratia UTI - IV Abx Dysphagia - needs swallow eval. Done. DDW Speech therapy. Post PEG.. Pre renal azotemia improving with IVF. DC IVF + check labs. Subjective Allergies: Coded Allergies: No Known Allergies (Verified , 06/04/07) Subjective Confused. Post PEG. Objective Last 24 Hour Vital Signs Date Time Temp Pulse Resp B/P (MAP) Pulse Ox O2 Delivery O2 Flow Rate FiO2 06/02/18 09:00 Nasal Cannula 2.0 06/02/18 08:49 154/90 06/02/18 08:00 97.5 84 20 149/86 (107) 96 06/02/18 04:00 98.5 81 18 120/66 (84) 95 06/02/18 00:00 98.4 84 18 152/95 (114) 93 06/01/18 21:10 154/78 06/01/18 20:38 Nasal Cannula 2.0 06/01/18 20:00 98.7 83 17 154/78 (103) 96 06/01/18 16:00 98.4 83 18 154/89 (110) 93 06/01/18 12:00 98.2 78 18 161/87 (111) 97 Intake and Output 06/01/18 06/02/18 19:00 07:00 Intake Total 1120 ml 1020 ml Balance 1120 ml 1020 ml Free Water 100 ml 300 ml IV Total 300 ml Tube Feeding 720 ml 720 ml # Voids 2 7 Laboratory Tests 06/02/18 05:20: White Blood Count 6.1, Red Blood Count 4.05L, Hemoglobin 12.4L, Hematocrit 36.1L , Mean Corpuscular Volume 89, Mean Corpuscular Hemoglobin 30.5, Mean Corpuscular Hemoglobin Concent 34.3, Red Cell Distribution Width 11.5L, Platelet Count 249, Mean Platelet Volume 6.8, Neutrophils (%) (Auto) 61.6, Lymphocytes (%) (Auto) 26.3, Monocytes (%) (Auto) 9.7, Eosinophils (%) (Auto) 2.0, Basophils (%) (Auto) 0.5, Sodium Level 139, Potassium Level 3.8, Chloride Level 106, Carbon Dioxide Level 27, Anion Gap 6, Blood Urea Nitrogen 19H, Creatinine 1.2, Estimat Glomerular Filtration Rate , Glucose Level 148H, Calcium Level 8.9, Magnesium Level 1.8 Height (Feet): 5 Height (Inches): 6.00 Weight (Pounds): 147 Objective CV RR Lungs B Nadya RANGELT. BS +. New PEG in. E No CCE Treasure Soriano MD Jun 02, 2018 10:38
[2018-06-02] MEDS ORDERED: COLACE100 MG/10 GT (10:41)
[2018-06-02] MEDS ORDERED: ACETAMINOPHEN325 M1 ORAL (10:41)
[2018-06-02] MEDS ORDERED: HEPARIN SO5000 UNIT2 SUBQ (10:41)
[2018-06-02] MEDS ORDERED: LONITEN2.5 MG ORAL (10:41)
[2018-06-02] MEDS ORDERED: LANSOPRAZOLE30 MG GT (10:41)
--- NOTE | 2018-06-02 12:05 | NUR ---
NURSE NOTES: Darryl Caban regarding discharge disposition back to [facility].
[2018-06-02 12:08] VITALS: BP 144/90
--- NOTE | 2018-06-02 12:08 | Infectious Diseases Prog Note ---
Assessment/Plan Assessment/Plan A 1. serratia UTI s/p rx 2. renal failure improving 3. dementia 4. pneumonia s/p rx 5. diabetes mellitus P 1. observe off antibiotics Subjective ROS Limited/Unobtainable: Yes Allergies: Coded Allergies: No Known Allergies (Verified , 06/04/07) Objective Vital Signs Last 24 Hour Vital Signs Date Time Temp Pulse Resp B/P (MAP) Pulse Ox O2 Delivery O2 Flow Rate FiO2 06/02/18 09:00 Nasal Cannula 2.0 06/02/18 08:49 154/90 06/02/18 08:00 97.5 84 20 149/86 (107) 96 06/02/18 04:00 98.5 81 18 120/66 (84) 95 06/02/18 00:00 98.4 84 18 152/95 (114) 93 06/01/18 21:10 154/78 06/01/18 20:38 Nasal Cannula 2.0 06/01/18 20:00 98.7 83 17 154/78 (103) 96 06/01/18 16:00 98.4 83 18 154/89 (110) 93 Height (Feet): 5 Height (Inches): 6.00 Weight (Pounds): 147 General Appearance: no acute distress HEENT: mucous membranes moist Respiratory/Chest: lungs clear Cardiovascular: normal rate Abdomen: soft, non tender, other - GT feeding Extremities: no edema Neurologic/Psychiatric: other - sleeping Laboratory Tests Test 06/02/18 05:20 White Blood Count 6.1 K/UL (4.8-10.8) Red Blood Count 4.05 M/UL (4.70-6.10) L Hemoglobin 12.4 G/DL (14.2-18.0) L Hematocrit 36.1 % (42.0-52.0) L Mean Corpuscular Volume 89 FL (80-99) Mean Corpuscular Hemoglobin 30.5 PG (27.0-31.0) Mean Corpuscular Hemoglobin Concent 34.3 G/DL (32.0-36.0) Red Cell Distribution Width 11.5 % (11.6-14.8) L Platelet Count 249 K/UL (150-450) Mean Platelet Volume 6.8 FL (6.5-10.1) Neutrophils (%) (Auto) 61.6 % (45.0-75.0) Lymphocytes (%) (Auto) 26.3 % (20.0-45.0) Monocytes (%) (Auto) 9.7 % (1.0-10.0) Eosinophils (%) (Auto) 2.0 % (0.0-3.0) Basophils (%) (Auto) 0.5 % (0.0-2.0) Sodium Level 139 MMOL/L (136-145) Potassium Level 3.8 MMOL/L (3.5-5.1) Chloride Level 106 MMOL/L (98-107) Carbon Dioxide Level 27 MMOL/L (21-32) Anion Gap 6 mmol/L (5-15) Blood Urea Nitrogen 19 mg/dL (7-18) H Creatinine 1.2 MG/DL (0.55-1.30) Estimat Glomerular Filtration Rate mL/min (>60) Glucose Level 148 MG/DL (74-106) H Calcium Level 8.9 MG/DL (8.5-10.1) Magnesium Level 1.8 MG/DL (1.8-2.4) Current Medications Medications (Trade) Dose Ordered Sig/Angelica Route PRN Reason Start Time Stop Time Status Last Admin Dose Admin Acetaminophen (Tylenol) 650 mg Q4H PRN ORAL Mild Pain (Pain Scale 1-3) 05/30/18 14:15 06/22/18 18:14 Dextrose (Dextrose 50%) 25 ml Q30M PRN IV Hypoglycemia 05/30/18 14:15 06/22/18 18:14 Dextrose (Dextrose 50%) 50 ml Q30M PRN IV Hypoglycemia 05/30/18 14:15 06/22/18 18:14 Diphenhydramine HCl (Benadryl) 25 mg Q6H PRN ORAL Itching/Pruritis 05/30/18 13:47 06/22/18 13:46 Docusate Sodium (Colace) 100 mg EVERY 12 HOURS GT 06/01/18 09:30 07/01/18 09:29 06/02/18 08:47 Heparin Sodium (Porcine) (Heparin 5000 units/ml) 5,000 units EVERY 12 HOURS SUBQ 05/30/18 21:00 06/22/18 20:59 06/02/18 08:54 Lansoprazole (Prevacid) 30 mg DAILY GT 06/01/18 09:00 07/01/18 08:59 06/02/18 08:47 Minoxidil (Loniten) 2.5 mg Q12HR ORAL 05/30/18 21:00 06/27/18 13:36 06/02/18 08:49 Joce Tamayo MD Jun 02, 2018 12:07
--- NOTE | 2018-06-02 12:27 | NUR ---
NURSE NOTES: report given to Merrill @ [facility].
--- NOTE | 2018-06-02 14:00 | NUR ---
NURSE NOTES: gtube drsg changed. No leakage noted. awaiting for transportation.
--- NOTE | 2018-06-02 14:30 | NUR ---
CASE MANAGEMENT: DCPNOTE UPON DISCHARGE PATIENT WILL TRANSFER BACK TO [facility] ROOM [address] FAMILY / DPOA MORENA BUTT CALLED [phone] LEFT MESSAGE TRANSPORTATION VIA [facility] [id number] ETA 16:30
[2018-06-02 16:00] VITALS: BP 158/96
--- NOTE | 2018-06-02 16:00 | NUR ---
NURSE NOTES: discharge via ambulance. gtube in placed and abdominal binder on. O2 on 2L via NC. in stable condition.
--- NOTE | 2018-06-02 17:05 | General Progress Note ---
Assessment/Plan Assessment/Plan Assessment/Plan Problem List: (1) Hypoxia ICD Codes: R09.02 - Hypoxemia SNOMED: 417379498 (2) Abdominal distention ICD Codes: R14.0 - Abdominal distension (gaseous) SNOMED: 83652158 (3) Anemia ICD Codes: D64.9 - Anemia, unspecified SNOMED: 992023214 (4) Abdominal pain ICD Codes: R10.9 - Unspecified abdominal pain SNOMED: 83278655 Qualifiers: Qualified Codes: R10.84 - Generalized abdominal pain (5) Encounter for PEG (percutaneous endoscopic gastrostomy) - anorexia ICD Codes: Z43.1 - Encounter for attention to gastrostomy Assessment/Plan Post op care Tube feeds Elevate HOB G tube care d/c planning Subjective Allergies: Coded Allergies: No Known Allergies (Verified , 06/04/07) Subjective seen earlier today Feels OK no complaints s/p PEG d/c planning noted Objective Last 24 Hour Vital Signs Date Time Temp Pulse Resp B/P (MAP) Pulse Ox O2 Delivery O2 Flow Rate FiO2 06/02/18 16:00 98.4 91 20 158/96 (116) 97 06/02/18 12:08 98.2 93 22 144/90 (108) 95 06/02/18 09:00 Nasal Cannula 2.0 06/02/18 08:49 154/90 06/02/18 08:00 97.5 84 20 149/86 (107) 96 06/02/18 04:00 98.5 81 18 120/66 (84) 95 06/02/18 00:00 98.4 84 18 152/95 (114) 93 06/01/18 21:10 154/78 06/01/18 20:38 Nasal Cannula 2.0 06/01/18 20:00 98.7 83 17 154/78 (103) 96 Intake and Output 06/01/18 06/02/18 19:00 07:00 Intake Total 1120 ml 1020 ml Balance 1120 ml 1020 ml Free Water 100 ml 300 ml IV Total 300 ml Tube Feeding 720 ml 720 ml # Voids 2 7 Laboratory Tests 06/02/18 05:20: White Blood Count 6.1, Red Blood Count 4.05L, Hemoglobin 12.4L, Hematocrit 36.1L , Mean Corpuscular Volume 89, Mean Corpuscular Hemoglobin 30.5, Mean Corpuscular Hemoglobin Concent 34.3, Red Cell Distribution Width 11.5L, Platelet Count 249, Mean Platelet Volume 6.8, Neutrophils (%) (Auto) 61.6, Lymphocytes (%) (Auto) 26.3, Monocytes (%) (Auto) 9.7, Eosinophils (%) (Auto) 2.0, Basophils (%) (Auto) 0.5, Sodium Level 139, Potassium Level 3.8, Chloride Level 106, Carbon Dioxide Level 27, Anion Gap 6, Blood Urea Nitrogen 19H, Creatinine 1.2, Estimat Glomerular Filtration Rate , Glucose Level 148H, Calcium Level 8.9, Magnesium Level 1.8 Height (Feet): 5 Height (Inches): 6.00 Weight (Pounds): 147 Objective Elderly Man, NAD NCAT supple CTA RR abd soft, ND, (+) PEG no edema Barbara Rothman MD Jun 02, 2018 17:05
--- NOTE | 2018-06-03 10:25 | Discharge Summary ---
Discharge Summary Discharge Summary _ DATE OF ADMISSION: 05/23/2018 DATE OF DISCHARGE: 06/02/2018 DISCHARGED BY: Dr. Soriano REASON FOR ADMISSION: 72 years old male with past medical history of organic brain syndrome, chronic kidney disease, status post CVA, type 2 diabetes mellitus, obstructive uropathy , hypothyroidism, resident of halfway facility, full code, was complaining of abdominal pain found to be confused and was sent to emergency room for evaluation. On evaluation patient was found to be hypoxemic and required supplemental oxygen . Laboratory workup revealed no leukocytosis, stable hemoglobin and hematocrit. BUN 36, creatinine 2.3. Lactic acid 4.9. Albumin 3.0. Troponin 0 0.021. EKG revealed normal sinus rhythm no acute ischemic changes. Urinalysis revealed evidence of UTI with moderate bacteria, pyuria, +2 leukocyte esterase. Chest x-ray revealed cardiomegaly. Right basilar hazy opacity/pleural fluid and /or infiltrate. Possible left-sided pleural effusion., CT scan of the abdomen and pelvis revealed complete consolidation of the right lower lobe representing pneumonia. CT of the abdomen revealed findings, consistent with ileus versus enteritis. Noted colonic diverticulosis without evidence of diverticulitis. Prostatomegaly noted. Patient admitted for further management. CONSULTANTS: ID specialist Dr. Driver GI specialist Dr. Salinas [facility] COURSE: Patient admitted to medical surgical floor. Patient started on the IV hydration and empiric antibiotic. GI and ID specialists closely follow. Blood cultures were negative. Urine culture revealed Serratia . Stool for C. difficile was negative. Sputum culture was not collected since cough was dry. Patient remained afebrile, no leukocytosis. Patient completed treatment for pneumonia and urinary tract infection. Patient was afterwards observed off antibiotics. Supplemental oxygen provided as needed to keep pulse oximetry above 92%. Pulmonary toilet provided as needed. Patient was able to be weaned from 6 L of oxygen nasal cannula to 2 L of oxygen via nasal cannula , prior to discharge , with stable pulse oximetry. GI specialist closely followed. Patient initially was kept n.p.o. , on IV fluids. Patient was started on PPI for GI prophylaxis. Bowel regimen instituted. KUB revealed no acute findings. Hemoglobin and hematocrit were closely monitored with goal to keep hemoglobin above 7. Hemoglobin and hematocrit remained at the baseline. Prior to discharge hemoglobin 12.4 hematocrit 36. Anemia workup initiated and revealed evidence of anemia of chronic disease. CEA within normal limits. Stable folate and B12. TSH within normal limits. Swallow evaluation demonstrated dysphagia. Subsequently video swallow evaluation revealed high risk of silent aspiration. Patient subsequently on undergone upper endoscopy with PEG placement. EGD revealed gastritis, biopsy results still pending at the time of this dictation. PEG was successfully placed. Abdominal binder applied. Strict aspiration/reflux precautions were maintained. Tube feeding started later as per registered dietitian recommendation. Nutritional supplements implemented in plan of care. G-tube site care provided. Patient was able to tolerate tube feeding. Renal parameters and electrolytes were closely monitored. Electrolytes corrected as needed. Nephrotoxins were avoided as far as possible. Prior to discharge BUN from 36 down to 19 and creatinine from 2.3 down to 1.2. Acute renal failure was likely brought in by dehydration, patient also had history of chronic renal insufficiency. FINAL DIAGNOSES: Metabolic encephalopathy Pneumonia, status post treatment Serratia UTI, status post treatment Acute renal failure ( likely due to dehydration) -resolved Dehydration with volume depletion Dysphagia Malnutrition Suspected enteritis status post EGD and PEG placement Anemia Hypoxia DISCHARGE MEDICATIONS: See Medication Reconciliation list. DISCHARGE INSTRUCTIONS: Patient was discharged to the halfway facility. Follow up with medical doctor at the facility. I have been assigned to dictate discharge summary for this account. I was not involved in the patient's management. Arlen Hall NP Jun 03, 2018 10:25
--- NOTE | 2018-06-03 16:07 | Diagnostic Imaging Report ---
Indication: Dysphasia Procedure and findings: Real-time fluoroscopic imaging performed in a lateral projection in conjunction with the speech pathologist evaluation. Variable consistencies of barium given per mouth. Findings: Significant abnormalities of both oral and pharyngeal phases of swallowing are demonstrated. Fluoroscopic time 173 seconds. Penetration noted with the barium. No aspiration identified. Abnormal video swallow. Please refer to speech pathology evaluation for more information.
== END 2018-06-02 16:00 | DRG 193 ==
LOC: EDBD 14:01 → EMR 14:57 → 2E 15:05 → EDBEDREQ 16:26 → 2E 05-24 12:22 → 4E 05-30 13:34
PROC: 0DH63UZ Insertion of Feeding Device into Stomach, Percutaneous Approach (ICD-10-PCS; principal; 2018-05-23)
PROC: 0DB78ZX Excision of Stomach, Pylorus, Via Natural or Artificial Opening Endoscopic, Diagnostic (ICD-10-PCS; principal; 2018-05-23)
DX: J18.9 Pneumonia, unspecified organism (principal); G93.41 Metabolic encephalopathy; N39.0 Urinary tract infection, site not specified; N17.9 Acute kidney failure, unspecified; E46 Unspecified protein-calorie malnutrition; K52.9 Noninfective gastroenteritis and colitis, unspecified; F09 Unspecified mental disorder due to known physiological condition; Z86.73 Personal history of transient ischemic attack (TIA), and cerebral infarction without residual deficits; I12.9 Hypertensive chronic kidney disease with stage 1 through stage 4 chronic kidney disease, or unspecified chronic kidney disease; N18.9 Chronic kidney disease, unspecified; N13.9 Obstructive and reflux uropathy, unspecified; E86.0 Dehydration; B96.89 Other specified bacterial agents as the cause of diseases classified elsewhere; R13.10 Dysphagia, unspecified; D64.9 Anemia, unspecified; R09.02 Hypoxemia; E03.9 Hypothyroidism, unspecified; Z79.82 Long term (current) use of aspirin; E11.22 Type 2 diabetes mellitus with diabetic chronic kidney disease; K57.90 Diverticulosis of intestine, part unspecified, without perforation or abscess without bleeding; F03.90 Unspecified dementia, unspecified severity, without behavioral disturbance, psychotic disturbance, mood disturbance, and anxiety; K29.70 Gastritis, unspecified, without bleeding
CPT/HCPCS: 36415; 71045; 74018; 74176; 74230; 80048; 80053; 81003; 82140; 82248; 82378; 82550; 82565; 82607; 82728; 82746; 83540; 83550; 83605; 83690; 83735; 84439; 84443; 84484; 85007; 85025; 85044; 85610; 85730; 86850; 86900; 86901; 87040; 87081; 87086; 87181; 87324; 93005; 94003; 94150; 94664; 94760; 96361; 96365; 96367; 96375; 99285; J2405